=== PATIENT | male | born 1960 | race Caucasian/White ===

== ENCOUNTER → 2018-07-15 | Outpatient (CLI) | payer OTHER ==
--- NOTE | 2018-07-15 13:21 | XR ---
EXAMINATION TYPE: XR Hip Complete RT DATE OF EXAM: 07/15/2018 COMPARISON: NONE HISTORY: Right hip pain TECHNIQUE: 2 views submitted FINDINGS: There is no evidence of erosive change or acute fracture. Severe hypertrophic change of the acetabulu m with arthropathy of the hip joint. No erosive changes. IMPRESSION: 1. Arthropathy with deformity of the lateral margin the acetabulum likely result in femoral acetabula r impingement. Correlate with MRI as clinically warranted.
== END ==
LOC: RADXRMAIN 12:18
PROVIDERS: ATTEND Internal Medicine Infectious Disease
DX: M12.851 Other specific arthropathies, not elsewhere classified, right hip (principal); M21.951 Unspecified acquired deformity of right thigh
CPT/HCPCS: 73502

== ENCOUNTER → 2019-12-12 | Outpatient (CLI) | payer OTHER ==
[2019-12-12 10:39] LABS: Basophils % (A) 0 %; Eosinophils # (A) 0.6 k/uL (0-0.7); Eosinophils % (A) 6 %; HCT 40.1 % (39.0-53.0); HGB 12.9 gm/dL (13.0-17.5); Hypochromasia Slight; Lymphocytes # (A) 1.7 k/uL (1.0-4.8); Lymphocytes % (A) 19 %; MCH 27.8 pg (25.0-35.0); MCHC 32.1 g/dL (31.0-37.0); MCV 86.4 fL (80.0-100.0); Mean Platelet Volume 7.5; Monocytes # (A) 0.4 k/uL (0-1.0); Monocytes % (A) 4 %; Neutrophils # (A) 6.4 k/uL (1.3-7.7); Neutrophils % (A) 70 %; Platelet Count 239 k/uL (150-450); RBC 4.64 m/uL (4.30-5.90); RDW 13.8 % (11.5-15.5); WBC 9.1 k/uL (3.8-10.6)
[2019-12-12 11:06] LABS: Albumin 3.9 g/dL (3.5-5.0); Calcium 8.9 mg/dL (8.4-10.2); Potassium 4.9 mmol/L (3.5-5.1); Total Bilirubin 0.2 mg/dL (0.2-1.3); Total Protein 6.7 g/dL (6.3-8.2)
[2019-12-12 16:58] LABS: Hemoglobin A1C 10.9 % (4.0-6.0)
--- NOTE | 2019-12-20 12:32 | P.ARTDOP ---
Arterial Doppler LOWER EXTREMITY ARTERIAL DOPPLER: DATE OF SERVICE: 12/12/2019 Only right leg is done. Patient status post amputation of right leg. Note that patient is paralyzed. Reason for study: Right ankle ulceration with diabetes. Doppler waveforms: Multiphasic throughout on the right. Pulse volume recording: []. Pressure gradients: None. Ankle-brachial indices: Greater than 1 on the right. Toe brachial indices: 0.81 on the right, [] on the left Impression: Normal study on the right.
== END | disposition home or self-care (01) ==
LOC: RADUSWWP 09:43
PROVIDERS: ATTEND Thoracic Surgery (Cardiothoracic Vascular Surgery)
DX: I70.233 Atherosclerosis of native arteries of right leg with ulceration of ankle (principal); L97.312 Non-pressure chronic ulcer of right ankle with fat layer exposed; F17.210 Nicotine dependence, cigarettes, uncomplicated; E08.622 Diabetes mellitus due to underlying condition with other skin ulcer
CPT/HCPCS: 36415; 80053; 83036; 84134; 85025; 93922

== ENCOUNTER → 2019-12-17 | Outpatient (CLI) | payer OTHER | END | disposition home or self-care (01) | LOC: LABWHC1 10:40 | PROVIDERS: ATTEND Surgery | DX: U07.1 COVID-19 (principal) | CPT/HCPCS: 87635 ==

== ENCOUNTER → 2019-12-19 | Day surgery (SDC) | payer OTHER ==
[2019-12-18 09:54] VITALS: BMI 36.5
[~2019-12-19] MED LIST: ALPRAZolam 0.25 MG TAB PO PRN; ASPIRIN 325 MG TAB PO STA; HEPARIN SODIUM 1,000 UN/ML (10ML VL) IV ONE; INSULIN ASPART (NovoLOG) 100 UNIT/ML VIAL SQ ONE; IOPAMIDOL-370 100ML BTL INJ ONE; LIDOCAINE 1% INJ 10MG/ML (20 ML MDV) SQ ONE; MIDAZOLAM 2 MG/2 ML VIAL IV ONE; SODIUM CHLORIDE 0.9% 1,000 ML in EMPTY BAG 1 BAG IV ONE; ZOLPIDEM 5 MG TAB PO PRN
[2019-12-19 07:22] LABS: Glucose,Whole Blood 232 mg/dL (75-99)
[2019-12-19 07:25] VITALS: TEMP 97.4
[2019-12-19] MEDS: fentaNYL (PF) 50 MCG/ML 2 ML AMP IV ONE ×2 (07:50→08:18)
--- NOTE | 2019-12-19 07:50 | P.GSHP ---
History of Present Illness H&P Date: 12/19/19 Chief Complaint: right chronic foot wound 58-year-old gentleman who originally presented to the office secondary to chronic right lower extremity wounds that are nonhealing. He has been seen by the wound care center for several weeks without any improvement of his lower extremity wounds. He underwent arterial Doppler which did demonstrate ABIs around 0.8-0.9 but are likely falsely elevated due to his calcific arterial disease. His waveforms did demonstrate diminished upstroke at the popliteal and tibial regions therefore he presents to the endovascular suite for aortogram with runoff and possible intervention of his popliteal and tibial vessels. I did discuss with him the possibility of amputation needed if we are not able to improve blood flow. - Review of Systems All systems: negative (What is mentioned in HPI past medical history) Past Medical History Past Medical History: Diabetes Mellitus, Hyperlipidemia, Hypertension, Musculoskeletal Disorder, Renal Disease Additional Past Medical History / Comment(s): CHRONIC KIDNEY DISEASE, BPH, BACK PAIN, UNHEALING WOUND RIGHT ANKLE., WEAKNESS RIGHT LEG SINCE BACK SURGERY, LEFT LEG AKA.,- USES WHEELCHAIR AND SLIDE BOARD. History of Any Multi-Drug Resistant Organisms: MRSA Date of last positivie culture/infection: 2018 MDRO Source:: LEFT LEG Past Surgical History: Back Surgery Additional Past Surgical History / Comment(s): BACK SURGERY- LAMINECTOMY? AND CERVICAL FUSION (2003), LEFT LEG AKA (2017) Past Anesthesia/Blood Transfusion Reactions: No Reported Reaction, Motion Sickness Past Psychological History: Depression Smoking Status: Current every day smoker Past Alcohol Use History: None Reported Additional Past Alcohol Use History / Comment(s): SMOKES 1 PPD, STARTED SMOKING AGE 16 Past Drug Use History: None Reported - Past Family History Father Family Medical History: Cancer Additional Family Medical History / Comment(s): CROHNS Mother Family Medical History: Cancer Additional Family Medical History / Comment(s): BRAIN ANEURYSM X3, Sister(s) Family Medical History: Cancer Additional Family Medical History / Comment(s): SISTERS X2- BREAST CANCER Medications and Allergies Home Medications Medication Instructions Recorded Confirmed Type Diazepam [Valium] 5 mg PO BID 06/15/16 12/19/19 History Escitalopram [Lexapro] 20 mg PO DAILY 06/15/16 12/19/19 History Ibuprofen [Motrin] 600 mg PO BID 06/15/16 12/19/19 History Insulin Aspart Protam & Aspart 40 unit SQ BID 06/15/16 12/19/19 History [NovoLOG MIX 70-30 Flexpen] buPROPion [Wellbutrin] 100 mg PO DAILY 06/15/16 12/19/19 History Baclofen [Lioresal] 10 mg PO TID 12/18/19 12/19/19 History Folic Acid 1 mg PO DAILY 12/18/19 12/19/19 History HYDROcodone/APAP 10-325MG [[place] 1 tab PO QID PRN 12/18/19 12/19/19 History 10-325] Lisinopril 20 mg PO DAILY 12/18/19 12/19/19 History Metoprolol Succinate [Toprol XL] 25 mg PO DAILY 12/18/19 12/19/19 History Tamsulosin HCl [Flomax] 0.4 mg PO DAILY 12/18/19 12/19/19 History Vitamin E Acetate [Vitamin E] 180 unit PO DAILY 12/18/19 12/19/19 History Omeprazole 20 mg PO DAILY 12/19/19 12/19/19 History Allergies Allergy/AdvReac Type Severity Reaction Status Date / Time codeine AdvReac sleepy Verified 12/18/19 09:09 milk AdvReac Diarrhea Verified 12/18/19 09:09 morphine AdvReac Rash/Hives Verified 12/18/19 09:09 olmesartan [From Benicar] AdvReac blacks out Verified 12/18/19 09:09 Surgical - Exam Vital Signs Temp Pulse Resp BP Pulse Ox 97.4 F L 73 18 95/51 89 L 12/19/19 07:23 12/19/19 07:23 12/19/19 07:23 12/19/19 07:23 12/19/19 07:23 Nonpalpable DP, PT or popliteal pulses. Diminished femoral pulse due to patient's size. There is large wounds on the lateral aspect of his right lower leg and ankle. Multiple areas of ulcers then wounds noted throughout the lower leg. Capillary refill is slowed. - General Obese, in a wheelchair - Eyes PERRL - ENT normal pinna - Neck no masses - Respiratory normal expansion - Cardiovascular Rhythm: regular - Abdomen Soft, nontender, obese - Psychiatric oriented to time, oriented to person, oriented to place, speech is normal Results - Labs Abnormal Lab Results - Last 24 Hours (Table) 12/19/19 Range/Units 07:18 POC Glucose (mg/dL) 232 H (75-99) mg/dL Assessment and Plan Assessment: #1 critical limb ischemia of the right lower extremity [place] classification 6 #2 peripheral vascular disease of the right lower extremity with history of left AKA #3 diabetes #4 chronic right lower extremity wound #5 morbid obesity Plan: We'll perform an aortogram with right lower extremity runoff and possible interv ention.
--- NOTE | 2019-12-19 09:02 | P.OP ---
Description of Procedure: Preoperative diagnosis: Right lower extremity critical limb ischemia [place] classification 6, right lateral lower extremity arterial/venous ulcer Postop diagnosis: Same, right external iliac artery stenosis 80% and atherosclerotic disease with multiple areas of stenosis in the SFA, three-vessel runoff Procedure: 1. Aortogram with right lower extremity selective angiogram with catheter placement at the second order via left common femoral artery access under ultrasound guidance 2. Percutaneous transluminal balloon angioplasty of the right external iliac artery with a 7 x 20 mm [place] balloon 3. Intravascular pressure monitoring across the external iliac artery and common iliac artery Surgeon: Fran Anesthesia: Moderate sedation times 45 minutes Estimated blood loss: 5 mL Complications: None Condition: Stable Indication for procedure: 58-year-old gentleman with history of right lower extremity wounds with critical limb ischemia [place] classification 6 and ABIs demonstrating some decreased waveforms presents to the office for aortogram with right lower extremity runoff. Upon evaluation from preop he had no npalpable popliteal, DP or PT pulses as well as diminished femoral pulse on the right. He does have a left AKA. Findings: Aorta: Patent with mild atherosclerotic disease without any significant s tenosis, bilateral renal arteries demonstrate patent takeoff without any significant stenosis Iliacs: Left common iliac artery is patent without any significant stenosis, internal and external iliac artery is patent with some mild atherosclerotic disease. Right common iliac artery is patent without any significant stenosis. Internal iliac artery is patent without any significant calcification or stenosis. The external iliac artery does have an area of disease, calcification and possible stenosis approximately 80%. After crossing with a catheter and taking pressure monitoring differences were noted to be 125 down to 77 consistent with significant stenosis. Femorals: Bilateral femoral arteries were patent without any significant stenosis. The right profundus was widely patent without any significant disease. The superficial femoral artery on the right demonstrated multiple areas of atherosclerotic disease with some stenosis throughout the entirety of the vessel but flow was brisk throughout. Popliteal: Patent with mild atherosclerotic disease without any significant stenosis on the right. Tibials: Right lower extremity three-vessel runoff with 2 vessels to the foot. No significant stenosis or after stenotic disease. Operative narrative: After written informed consent was obtained the patient all risks benefits competitions were described the patient is brought to the [employer] [employer] and laid in a supine position. The area of the left groin was prepped and draped in the usual sterile fashion. Local anesthesia with moderate sedation was performed with continuous pulse ox monitoring and EKG monitoring. Utilizing ultrasound the left common femoral artery was visualized and shown to be patent without any significant plaque. Utilizing a multipurpose needle under ul trasound guidance the artery was accessed. Guidewire was placed followed by 5- [place] sheath. 035 Glidewire was then placed into the aorta followed by RBI catheter. Angiogram was then obtained of the aorta. Catheter was then placed up and over within the right common iliac artery and selective lower extremity angiograms were obtained. Catheter was then taken across the external iliac lesion and pressures were obtained demonstrating a systolic pressure of 77 mmHg distal to the lesion and 125 mmHg proximal to the lesion consistent with a proximally 50 mmHg difference. Glidewire was then placed across the lesion and balloon angioplasty with a 7 x 20 mm [place] balloon was performed. Pressures were once again obtained now demonstrating 125 mmHg proximal and a proximally 110-115 mmHg distal to the external iliac artery. There was no flow dissection or injury and therefore no stent was placed at this time. Once completed all guidewires, catheters and sheaths were removed and pressure was placed for hemostasis. Patient tolerated procedure well was sent to PACU for recovery. Disposition patient had a palpable right femoral pulse at the conclusion of the procedure. This should improve the blood flow and possibly heal his venous/arterial wounds. If he still has some inability to heal we will bring him back for atherectomy and stenting of his SFA. Plan - Discharge Summary Discharge Rx Participant: Yes New Discharge Prescriptions: No Action buPROPion [Wellbutrin] 100 mg PO DAILY Escitalopram [Lexapro] 20 mg PO DAILY Ibuprofen [Motrin] 600 mg PO BID Diazepam [Valium] 5 mg PO BID Insulin Aspart Protam & Aspart [NovoLOG MIX 70-30 Flexpen] 40 unit SQ BID Metoprolol Succinate [Toprol XL] 25 mg PO DAILY Lisinopril 20 mg PO DAILY Folic Acid 1 mg PO DAILY Baclofen [Lioresal] 10 mg PO TID Vitamin E Acetate [Vitamin E] 180 unit PO DAILY Tamsulosin HCl [Flomax] 0.4 mg PO DAILY HYDROcodone/APAP 10-325MG [[place] 10-325] 1 tab PO QID PRN PRN Reason: Pain Omeprazole 20 mg PO DAILY Discharge Medication List Diazepam [Valium] 5 mg PO BID 06/15/16 [History] Escitalopram [Lexapro] 20 mg PO DAILY 06/15/16 [History] Ibuprofen [Motrin] 600 mg PO BID 06/15/16 [History] Insulin Aspart Protam & Aspart [NovoLOG MIX 70-30 Flexpen] 40 unit SQ BID 06/15/16 [History] buPROPion [Wellbutrin] 100 mg PO DAILY 06/15/16 [History] Baclofen [Lioresal] 10 mg PO TID 12/18/19 [History] Folic Acid 1 mg PO DAILY 12/18/19 [History] HYDROcodone/APAP 10-325MG [[place] 10-325] 1 tab PO QID PRN 12/18/19 [History] Lisinopril 20 mg PO DAILY 12/18/19 [History] Metoprolol Succinate [Toprol XL] 25 mg PO DAILY 12/18/19 [History] Tamsulosin HCl [Flomax] 0.4 mg PO DAILY 12/18/19 [History] Vitamin E Acetate [Vitamin E] 180 unit PO DAILY 12/18/19 [History] Omeprazole 20 mg PO DAILY 12/19/19 [History]
--- NOTE | 2019-12-19 10:08 | IR ---
Fluoroscopy HISTORY: Critical limb ischemia 5.7 minutes fluoroscopy time supplied to the referring clinician. 223 intraoperative C-arm images do cument the procedure. See dictated report from vascular surgery.
[2019-12-19 10:13] VITALS: RESP 16
[2019-12-19 11:51] VITALS: BP 100/56; PULSE 78
== END | disposition home or self-care (01) ==
LOC: CATHCVL 06:42
PROVIDERS: ATTEND Surgery
DX: I70.201 Unspecified atherosclerosis of native arteries of extremities, right leg (principal); E11.51 Type 2 diabetes mellitus with diabetic peripheral angiopathy without gangrene; I77.1 Stricture of artery; I99.8 Other disorder of circulatory system; E11.622 Type 2 diabetes mellitus with other skin ulcer; L97.919 Non-pressure chronic ulcer of unspecified part of right lower leg with unspecified severity; L97.319 Non-pressure chronic ulcer of right ankle with unspecified severity; E66.01 Morbid (severe) obesity due to excess calories; E78.5 Hyperlipidemia, unspecified; I12.9 Hypertensive chronic kidney disease with stage 1 through stage 4 chronic kidney disease, or unspecified chronic kidney disease; E11.22 Type 2 diabetes mellitus with diabetic chronic kidney disease; N18.9 Chronic kidney disease, unspecified; N40.0 Benign prostatic hyperplasia without lower urinary tract symptoms; F32.9 Major depressive disorder, single episode, unspecified; F17.210 Nicotine dependence, cigarettes, uncomplicated; Z68.36 Body mass index [BMI] 36.0-36.9, adult; Z89.612 Acquired absence of left leg above knee; Z86.14 Personal history of Methicillin resistant Staphylococcus aureus infection; Z98.890 Other specified postprocedural states; Z98.1 Arthrodesis status; Z87.898 Personal history of other specified conditions; Z79.899 Other long term (current) drug therapy; Z79.1 Long term (current) use of non-steroidal anti-inflammatories (NSAID); Z79.4 Long term (current) use of insulin; Z88.5 Allergy status to narcotic agent; Z91.011 Allergy to milk products; Z88.8 Allergy status to other drugs, medicaments and biological substances; Z80.9 Family history of malignant neoplasm, unspecified; Z83.79 Family history of other diseases of the digestive system; Z82.49 Family history of ischemic heart disease and other diseases of the circulatory system; Z80.3 Family history of malignant neoplasm of breast
CPT/HCPCS: 36246; 37220; 75625; 75710; C1769 ×3; C1894; C1725; J2250; J2001; J3010; J1644; Q9967; 36200

== ENCOUNTER → 2020-01-05 | Outpatient (CLI) | payer OTHER | END | disposition home or self-care (01) | LOC: LABWHC1 10:10 | PROVIDERS: ATTEND Surgery | DX: Z11.59 Encounter for screening for other viral diseases (principal) | CPT/HCPCS: 87635 ==

== ENCOUNTER → 2020-01-09 | Day surgery (SDC) | payer OTHER ==
[2020-01-05 10:23] VITALS: BMI 36.5
[~2020-01-09] MED LIST changes: -ALPRAZolam 0.25 MG TAB PO PRN; -ASPIRIN 325 MG TAB PO STA; +CLINDAMYCIN 900 MG in DEXTROSE 5% IN WATER 50 ML IVPB ONE; +DEXAMETHASONE SOD PHOSPHATE 10 MG/ML 1 ML VIAL IV ONE; -HEPARIN SODIUM 1,000 UN/ML (10ML VL) IV ONE; +HYDROmorphone 0.5 MG/0.5 ML SYRINGE IVP PRN; -INSULIN ASPART (NovoLOG) 100 UNIT/ML VIAL SQ ONE; -IOPAMIDOL-370 100ML BTL INJ ONE; +KETAMINE 10 MG/ML 20 ML VIAL ONE; +LACTATED RINGERS 1,000 ML IV SCH; +LIDOCAINE 1% (10MG/ML) FOR IV START INTRADERMA PRN; -LIDOCAINE 1% INJ 10MG/ML (20 ML MDV) SQ ONE; -MIDAZOLAM 2 MG/2 ML VIAL IV ONE; +MIDAZOLAM 2 MG/2 ML VIAL IV PRN; +MIDAZOLAM 2 MG/2 ML VIAL ONE; +ONDANSETRON 4 MG/2 ML VIAL IVP ONE; +PROPOFOL 10 MG/ML 20 ML VIAL IV ONE; -SODIUM CHLORIDE 0.9% 1,000 ML in EMPTY BAG 1 BAG IV ONE; -ZOLPIDEM 5 MG TAB PO PRN; +diphenhydrAMINE 50 MG/ML 1 ML VIAL ONE; +fentaNYL (PF) 50 MCG/ML 2 ML AMP IV PRN; +fentaNYL (PF) 50 MCG/ML 2 ML AMP ONE
[2020-01-09 07:08] LABS: Glucose,Whole Blood 223 mg/dL (75-99)
[2020-01-09 07:11] VITALS: TEMP 97.3
[2020-01-09 08:11] VITALS: RESP 17
[2020-01-09 08:17] VITALS: BP 108/65; PULSE 81
--- NOTE | 2020-01-09 08:18 | P.OP ---
Date of Procedure: 01/09/20 Preoperative Diagnosis: Nonhealing right lateral ankle wound 4.5 x 3.5 x 2cm Postoperative Diagnosis: Same Procedure(s) Performed: Excisional debridement of the right lateral ankle wound with placement of skin substitute. Implants: Amniofill and Epifix skin substitute [place] [facility] [place]: Miah Peters Estimated Blood Loss (ml): 5 Pathology: none sent Condition: stable Disposition: PACU Indications for Procedure: 59-year-old gentleman with history of right lateral ankle wound and left above- knee amputation who presented originally to the office secondary to vascular issues and poor wound healing. He underwent aortogram with right iliac balloon angioplasty which improved his blood flow to his wound. He had been having issues with healing for the last several weeks and when discussion with Dr. Roa it was determined to perform a formal debridement and placement of skin substitute to assess the wound to heal. He presents today for such procedure. Operative Findings: Good bleeding tissues without any signs of infection or drainage. There is exposed tendon. Description of Procedure: After written and informed consent was obtained the patient all risks benefits and competitions were described the patient is brought to the operative suite and laid in a supine position. The area of the right lower leg was prepped and draped in usual sterile fashion after appropriate anesthetic was performed per the anesthesiologist. Timeout was performed in normal fashion antibiotics were administered prior to incision. Utilizing a curet right lateral ankle wound was debrided down to bleeding subcutaneous tissues as well as bleeding tissues overlying the tendon which is exposed. Once tenderness tissue was removed and good bleeding edges were noted the area was irrigated with saline. The wound measured 4.5 x 3.5 cm x 2 cm in depth. Amniofill was placed within the wound bed and an 4x4cm piece of Epifix was placed overlying the wound. The area was then irrigated with saline and surrounding tissues were cleansed and dried. An Adaptic was then placed over the wound and secured with Steri-Strips. The wound was then dressed with 4 x 4 and OpSite. The patient all procedure well was sent to PACU for recovery. Plan - Discharge Summary Discharge Rx Participant: No New Discharge Prescriptions: No Action buPROPion [Wellbutrin] 100 mg PO DAILY Escitalopram [Lexapro] 20 mg PO DAILY Ibuprofen [Motrin] 600 mg PO BID Diazepam [Valium] 5 mg PO BID Metoprolol Succinate [Toprol XL] 25 mg PO DAILY Lisinopril 20 mg PO DAILY Folic Acid 1 mg PO DAILY Baclofen [Lioresal] 10 mg PO TID Vitamin E Acetate [Vitamin E] 180 unit PO DAILY Tamsulosin HCl [Flomax] 0.4 mg PO DAILY HYDROcodone/APAP 10-325MG [[place] 10-325] 1 tab PO QID PRN PRN Reason: Pain Omeprazole 20 mg PO DAILY Insulin NPH Hum/Reg Insulin Hm [NovoLIN 70-30 100 UNIT/ML VIAL] 40 unit SQ BID Sulfamethox-Tmp 800-160Mg [Bactrim DS 800-160 mg] 1 tab PO Q12HR Discharge Medication List Diazepam [Valium] 5 mg PO BID 06/15/16 [History] Escitalopram [Lexapro] 20 mg PO DAILY 06/15/16 [History] Ibuprofen [Motrin] 600 mg PO BID 06/15/16 [History] buPROPion [Wellbutrin] 100 mg PO DAILY 06/15/16 [History] Baclofen [Lioresal] 10 mg PO TID 12/18/19 [History] Folic Acid 1 mg PO DAILY 12/18/19 [History] HYDROcodone/APAP 10-325MG [[place] 10-325] 1 tab PO QID PRN 12/18/19 [History] Lisinopril 20 mg PO DAILY 12/18/19 [History] Metoprolol Succinate [Toprol XL] 25 mg PO DAILY 12/18/19 [History] Tamsulosin HCl [Flomax] 0.4 mg PO DAILY 12/18/19 [History] Vitamin E Acetate [Vitamin E] 180 unit PO DAILY 12/18/19 [History] Omeprazole 20 mg PO DAILY 12/19/19 [History] Insulin NPH Hum/Reg Insulin Hm [NovoLIN 70-30 100 UNIT/ML VIAL] 40 unit SQ BID 01/05/20 [History] Sulfamethox-Tmp 800-160Mg [Bactrim DS 800-160 mg] 1 tab PO Q12HR 01/05/20 [History] Follow up Appointment(s)/Referral(s): Miah Peters DO [STAFF PHYSICIAN] - 1 Week Activity/Diet/Wound Care/Special Instructions: Dressing is to be left in place until seen in the office in one week. Do not allow dressings to get wet.
[2020-01-09 09:01] LABS: Glucose,Whole Blood 223 mg/dL (75-99)
== END ==
LOC: OR 06:11
PROVIDERS: ATTEND Surgery
DX: E11.622 Type 2 diabetes mellitus with other skin ulcer (principal); L97.319 Non-pressure chronic ulcer of right ankle with unspecified severity; I10 Essential (primary) hypertension; I73.9 Peripheral vascular disease, unspecified; F17.210 Nicotine dependence, cigarettes, uncomplicated; N40.0 Benign prostatic hyperplasia without lower urinary tract symptoms; K21.9 Gastro-esophageal reflux disease without esophagitis; Z03.818 Encounter for observation for suspected exposure to other biological agents ruled out; Z79.4 Long term (current) use of insulin; Z79.899 Other long term (current) drug therapy; Z88.1 Allergy status to other antibiotic agents; Z88.5 Allergy status to narcotic agent; Z89.612 Acquired absence of left leg above knee; Z98.1 Arthrodesis status; Z80.9 Family history of malignant neoplasm, unspecified
CPT/HCPCS: 15271; J2250; J1200; J2405; J3010; J2704

== ENCOUNTER 2020-01-16 15:13 | Inpatient (IN) | payer OTHER ==
[2020-01-16] MEDS ORDERED: SODIUM CHLORIDE 0.9% 1,000 ML IV ONE (15:44)
[2020-01-16] MEDS ORDERED: PIPERACILLIN-TAZOBACTAM 3.375 GM in SODIUM CHLORIDE 0.9% 100 ML IVPB STA (15:45)
[2020-01-16] MEDS ORDERED: VANCOMYCIN IV PER PHARMACY 1 EACH MISC MISCELLANE PRN (15:45)
--- NOTE | 2020-01-16 16:01 | ED ---
General Adult HPI - General Chief complaint: Recheck/Abnormal Lab/Rx Stated complaint: R Leg Wound Time Seen by Provider: 01/16/20 15:23 Source: patient, RN notes reviewed, old records reviewed Mode of arrival: ambulatory Limitations: no limitations - History of Present Illness Initial comments: Patient is a 51-year-old male who presents emergency department today for evaluation for right ankle wound. He was sent by his vascular surgeon Dr. Peters. Patient underwent debridement last week And has been on Bactrim DS for the past 2 weeks. Apparently of patient's visit with Dr. Peters today and the wound was rechecked and has a significant amount of purulent drainage. Patient denies any recent fevers. He states he was sent in for further evaluation and admission for IV antibiotics. Patient states that he did also have balloon angioplasty done a few weeks prior to this to assist with blood flow to the lower extremity. He has a left [id number] amputee. Patient denies any recent fever, chills, shortness of breath, chest pain, back p ain, abdominal pain, nausea vomiting, numbness or tingling, dysuria or hematuria, constipation or diarrhea, headaches or visual changes, or any other current symptoms. - Related Data Home Medications Medication Instructions Recorded Confirmed Diazepam [Valium] 5 mg PO BID 06/15/16 01/05/20 Escitalopram [Lexapro] 20 mg PO DAILY 06/15/16 01/05/20 Ibuprofen [Motrin] 600 mg PO BID 06/15/16 01/05/20 buPROPion [Wellbutrin] 100 mg PO DAILY 06/15/16 01/05/20 Baclofen [Lioresal] 10 mg PO TID 12/18/19 01/05/20 Folic Acid 1 mg PO DAILY 12/18/19 01/05/20 HYDROcodone/APAP 10-325MG [[place] 1 tab PO QID PRN 12/18/19 01/05/20 10-325] Lisinopril 20 mg PO DAILY 12/18/19 01/05/20 Metoprolol Succinate [Toprol XL] 25 mg PO DAILY 12/18/19 01/05/20 Tamsulosin HCl [Flomax] 0.4 mg PO DAILY 12/18/19 01/05/20 Vitamin E Acetate [Vitamin E] 180 unit PO DAILY 12/18/19 01/05/20 Omeprazole 20 mg PO DAILY 12/19/19 01/05/20 Insulin NPH Hum/Reg Insulin Hm 40 unit SQ BID 01/05/20 01/05/20 [NovoLIN 70-30 100 UNIT/ML VIAL] Sulfamethox-Tmp 800-160Mg [Bactrim 1 tab PO Q12HR 01/05/20 01/05/20 DS 800-160 mg] Allergies Allergy/AdvReac Type Severity Reaction Status Date / Time cephalexin [From Keflex] Allergy Unknown Verified 01/16/20 15:21 levofloxacin [From Levaquin] Allergy Nausea & Verified 01/16/20 15:21 Vomiting,headache codeine AdvReac sleepy Verified 01/16/20 15:21 milk AdvReac Diarrhea Verified 01/16/20 15:21 morphine AdvReac Rash/Hives Verified 01/16/20 15:21 olmesartan [From Benicar] AdvReac blacks out Verified 01/16/20 15:21 Review of Systems ROS Statement: Those systems with pertinent positive or pertinent negative responses have been documented in the HPI. ROS Other: All systems not noted in ROS Statement are negative. Past Medical History Past Medical History: Diabetes Mellitus, Hyperlipidemia, Hypertension, Musculoskeletal Disorder, Renal Disease Additional Past Medical History / Comment(s): paraplegia 2002 History of Any Multi-Drug Resistant Organisms: MRSA Date of last positivie culture/infection: 2016 MDRO Source:: L Ankle Past Surgical History: Back Surgery Additional Past Surgical History / Comment(s): Colonoscopy, left leg above the knee amputation Past Anesthesia/Blood Transfusion Reactions: No Reported Reaction Smoking Status: Current some day smoker Past Alcohol Use History: None Reported Past Drug Use History: None Reported - Past Family History Father Family Medical History: Cancer Mother Family Medical History: Cancer, Deep Vein Thrombosis (DVT) Sister(s) Family Medical History: Cancer General Exam - General Exam Comments Initial Comments: 59 year old male, no distress. Limitations: no limitations General appearance: alert, in no apparent distress Head exam: Present: atraumatic, normocephalic, normal inspection Eye exam: Present: normal appearance, PERRL, EOMI. Absent: scleral icterus, c onjunctival injection, periorbital swelling ENT exam: Present: normal exam, mucous membranes moist Neck exam: Present: normal inspection. Absent: tenderness, meningismus, lymphadenopathy Respiratory exam: Present: normal lung sounds bilaterally. Absent: respiratory distress, wheezes, rales, rhonchi, stridor Cardiovascular Exam: Present: regular rate GI/Abdominal exam: Present: soft, normal bowel sounds. Absent: distended, tenderness, guarding, rebound, rigid Extremities exam: Present: normal inspection, full ROM, normal capillary refill. Absent: tenderness, pedal edema, joint swelling, calf tenderness Right Upper Leg exam: Present: normal inspection, full ROM Knee exam: Present: normal inspection, full ROM Lower Leg exam: Present: normal inspection, full ROM Ankle exam: Present: full ROM, swelling. Absent: normal inspection Foot/Toe exam: Present: full ROM. Absent: normal inspection (Patient has a 4 cm x 3 cm open wound from D Prete debridement with purulent drainage over the lateral malleolus of the right ankle. There is some surrounding erythema consistent with where bandages were.) Neurovascular tendon exam: Absent: no vascular compromise (Patient has faint Doppler dorsalis pedis and posterior tibial pulse heard on Doppler ultrasound.) Gait: observed and normal Back exam: Present: normal inspection Neurological exam: Present: alert, oriented X3, CN II-XII intact Psychiatric exam: Present: normal affect, normal mood Skin exam: Present: warm, dry, intact, normal color. Absent: rash Course Vital Signs 01/16/20 15:15 Temperature 98.5 F Pulse Rate 74 Respiratory 18 Rate Blood Pressure 109/69 O2 Sat by Pulse 98 Oximetry Medical Decision Making - Medical Decision Making Patient's a 59-year-old male presents emergency department today for nonweight healing right ankle wound. Patient was sent by his vascular specialist Dr. Peters who did a debridement last week. Wound cultures obtained today and Patient was started on Zosyn and vancomycin. Patient has very limited sensation to the lower extremity. And dorsalis pedis and Doppler pulses were auscultated with Doppler and were faintly heard. Patient will be admitted this time in case was discussed with Dr. Leavitt by Dr. Aguilera. With consults to Dr. Peters - Lab Data Result diagrams: 01/16/20 16:30 01/16/20 16:30 Lab Results 01/16/20 01/16/20 01/16/20 Range/Units 16:30 16:30 16:30 WBC 9.5 (3.8-10.6) k/uL RBC 4.69 (4.30-5.90) m/uL Hgb 12.4 L (13.0-17.5) gm/dL Hct 38.3 L (39.0-53.0) % MCV 81.5 (80.0-100.0) fL MCH 26.5 (25.0-35.0) pg MCHC 32.5 (31.0-37.0) g/dL RDW 13.3 (11.5-15.5) % Plt Count 228 (150-450) k/uL Neutrophils % 62 % Lymphocytes % 27 % Monocytes % 4 % Eosinophils % 6 % Basophils % 1 % Neutrophils # 5.8 (1.3-7.7) k/uL Lymphocytes # 2.6 (1.0-4.8) k/uL Monocytes # 0.3 (0-1.0) k/uL Eosinophils # 0.6 (0-0.7) k/uL Basophils # 0.1 (0-0.2) k/uL PT 10.0 (9.0-12.0) sec INR 1.0 (<1.2) APTT 26.2 (22.0-30.0) sec Sodium 129 L (137-145) mmol/L Potassium 4.5 (3.5-5.1) mmol/L Chloride 95 L (98-107) mmol/L Carbon Dioxide 23 (22-30) mmol/L Anion Gap 11 mmol/L BUN 18 (9-20) mg/dL Creatinine 1.03 (0.66-1.25) mg/dL Est GFR (CKD-EPI)AfAm >90 (>60 ml/min/1.73 sqM) Est GFR (CKD-EPI)NonAf 80 (>60 ml/min/1.73 sqM) Glucose 246 H (74-99) mg/dL Plasma Lactic Acid Glenn (0.7-2.0) mmol/L Calcium 9.2 (8.4-10.2) mg/dL Total Bilirubin 0.2 (0.2-1.3) mg/dL AST 17 (17-59) U/L ALT 14 (4-49) U/L Alkaline Phosphatase 91 (38-126) U/L Total Protein 6.7 (6.3-8.2) g/dL Albumin 3.9 (3.5-5.0) g/dL 01/16/20 Range/Units 16:30 WBC (3.8-10.6) k/uL RBC (4.30-5.90) m/uL Hgb (13.0-17.5) gm/dL Hct (39.0-53.0) % MCV (80.0-100.0) fL MCH (25.0-35.0) pg MCHC (31.0-37.0) g/dL RDW (11.5-15.5) % Plt Count (150-450) k/uL Neutrophils % % Lymphocytes % % Monocytes % % Eosinophils % % Basophils % % Neutrophils # (1.3-7.7) k/uL Lymphocytes # (1.0-4.8) k/uL Monocytes # (0-1.0) k/uL Eosinophils # (0-0.7) k/uL Basophils # (0-0.2) k/uL PT (9.0-12.0) sec INR (<1.2) APTT (22.0-30.0) sec Sodium (137-145) mmol/L Potassium (3.5-5.1) mmol/L Chloride (98-107) mmol/L Carbon Dioxide (22-30) mmol/L Anion Gap mmol/L BUN (9-20) mg/dL Creatinine (0.66-1.25) mg/dL Est GFR (CKD-EPI)AfAm (>60 ml/min/1.73 sqM) Est GFR (CKD-EPI)NonAf (>60 ml/min/1.73 sqM) Glucose (74-99) mg/dL Plasma Lactic Acid Glenn 2.3 H* (0.7-2.0) mmol/L Calcium (8.4-10.2) mg/dL Total Bilirubin (0.2-1.3) mg/dL AST (17-59) U/L ALT (4-49) U/L Alkaline Phosphatase (38-126) U/L Total Protein (6.3-8.2) g/dL Albumin (3.5-5.0) g/dL - Radiology Data Radiology results: report reviewed 2.3 cm skin ulceration over the lateral malleolus with no radiographic sequela of osteomyelitis however nuclear medicine scan could be used to further evaluate presence of osteomyelitis. Extensive hindfoot arthropathy is seen. Disposition Clinical Impression: Diabetic ulcer of lower leg, Failure of outpatient treatment Disposition: ADMITTED IP TO THIS [facility] Condition: Stable Is patient prescribed a controlled substance at d/c from ED?: No Referrals: Kendell Mane MD [Primary Care Provider] - 1-2 days Time of Disposition: 17:20
[2020-01-16] MEDS ORDERED: VANCOMYCIN 2,500 MG in SODIUM CHLORIDE 0.9% 500 ML 500 ML IVPB ONE (16:30)
[2020-01-16 16:41] LABS: Basophils # (A) 0.1 k/uL (0-0.2); Basophils % (A) 1 %; Eosinophils # (A) 0.6 k/uL (0-0.7); Eosinophils % (A) 6 %; HCT 38.3 % (39.0-53.0); HGB 12.4 gm/dL (13.0-17.5); Lymphocytes # (A) 2.6 k/uL (1.0-4.8); Lymphocytes % (A) 27 %; MCH 26.5 pg (25.0-35.0); MCHC 32.5 g/dL (31.0-37.0); MCV 81.5 fL (80.0-100.0); Mean Platelet Volume 7.8; Monocytes # (A) 0.3 k/uL (0-1.0); Monocytes % (A) 4 %; Neutrophils # (A) 5.8 k/uL (1.3-7.7); Neutrophils % (A) 62 %; Platelet Count 228 k/uL (150-450); RBC 4.69 m/uL (4.30-5.90); RDW 13.3 % (11.5-15.5); WBC 9.5 k/uL (3.8-10.6)
[2020-01-16 16:49] LABS: ALT 14 U/L (4-49); AST 17 U/L (17-59); African American GFR (CKD) >90 (>60 ml/min/1.73 sqM); Albumin 3.9 g/dL (3.5-5.0); Alkaline Phosphatase 91 U/L (38-126); Anion Gap 11 mmol/L; Blood Urea Nitrogen 18 mg/dL (9-20); Calcium 9.2 mg/dL (8.4-10.2); Carbon Dioxide 23 mmol/L (22-30); Chloride 95 mmol/L (98-107); Glucose 246 mg/dL (74-99); Non-African American GFR(CKD) 80 (>60 ml/min/1.73 sqM); Potassium 4.5 mmol/L (3.5-5.1); Sodium 129 mmol/L (137-145); Total Bilirubin 0.2 mg/dL (0.2-1.3); Total Protein 6.7 g/dL (6.3-8.2)
[2020-01-16 16:53] LABS: Partial Thromboplastin Time 26.2 sec (22.0-30.0)
--- NOTE | 2020-01-16 17:06 | XR ---
EXAMINATION TYPE: XR ankle complete RT DATE OF EXAM: 01/16/2020 CLINICAL HISTORY: Nonhealing wound right ankle pain TECHNIQUE: Frontal, lateral and oblique images of the right ankle are obtained. COMPARISON: None. FINDINGS: There is a 2.3 cm skin ulcer overlying the distal fibula. There is diffuse osseous deminera lization and extensive arthropathy of the hindfoot although the talar dome appears intact. Old fractu re deformity of the medial malleolus. No periosteal reaction or erosion of the fibula. Moderate plant ar and Achilles heel spurs noted. IMPRESSION: 2.3 cm skin ulceration over the lateral malleolus with no current radiographic sequela of osteomyelitis however nuclear medicine bone scan could further evaluate for the presence of osteomye litis. Extensive hindfoot arthropathy is seen.
[2020-01-16] MEDS ORDERED: IBUPROFEN 400 MG TAB PO PRN (17:21)
[2020-01-16] MEDS ORDERED: Acetaminophen-Codeine 300-30mg TAB PO PRN (17:21)
[2020-01-16] MEDS ORDERED: NALOXONE 0.4 MG/ML 1 ML VIAL IV PRN (17:21)
[2020-01-16] MEDS ORDERED: ONDANSETRON 4 MG/2 ML VIAL IVP PRN (17:21)
[2020-01-16] MEDS ORDERED: oxyCODONE-APAP 5-325MG 1 EACH TAB PO PRN (17:21)
[2020-01-16] MEDS ORDERED: NICOTINE 21MG/24HR PATCH TRANSDERM STA (17:34)
[2020-01-16] MEDS: SODIUM CHLORIDE 0.9% 1,000 ML IV SCH (19:39)
[2020-01-16 20:56] LABS: Glucose,Whole Blood 328 mg/dL (75-99)
[2020-01-16] MEDS: INSULN ASP PRT/INSULIN ASPART 100 UNIT/ML 10 ML VIAL SQ SCH (20:56)
[2020-01-16] MEDS: IBUPROFEN 600 MG TAB PO SCH (20:57)
[2020-01-16] MEDS: DIAZEPAM 5 MG TAB PO SCH (20:57)
[2020-01-16] MEDS: BACLOFEN 10 MG TAB PO SCH (20:57)
[2020-01-16] MEDS: TAMSULOSIN 0.4 MG CAP.ER.24H PO SCH (20:57)
[2020-01-16] MEDS: HYDROcodone/APAP 10-325MG 1 EACH TAB PO SCH (20:57)
[2020-01-17] MEDS: SODIUM CHLORIDE 0.9% 1,000 ML IV SCH ×3 (03:51→22:57)
[2020-01-17] MEDS: VANCOMYCIN 2,500 MG in SODIUM CHLORIDE 0.9% 500 ML 500 ML IVPB SCH ×2 (05:43→17:38)
[2020-01-17 06:56] LABS: Glucose,Whole Blood 149 mg/dL (75-99)
[2020-01-17 07:40] LABS: Basophils # (A) 0.1 k/uL (0-0.2); Basophils % (A) 1 %; Eosinophils # (A) 0.6 k/uL (0-0.7); Eosinophils % (A) 9 %; HCT 38.7 % (39.0-53.0); HGB 12.1 gm/dL (13.0-17.5); Lymphocytes % (A) 30 %; MCH 25.9 pg (25.0-35.0); MCHC 31.3 g/dL (31.0-37.0); MCV 82.9 fL (80.0-100.0); Mean Platelet Volume 7.4; Monocytes # (A) 0.3 k/uL (0-1.0); Monocytes % (A) 4 %; Neutrophils # (A) 3.5 k/uL (1.3-7.7); Neutrophils % (A) 54 %; Platelet Count 213 k/uL (150-450); RBC 4.67 m/uL (4.30-5.90); RDW 13.4 % (11.5-15.5); WBC 6.5 k/uL (3.8-10.6)
[2020-01-17 07:56] LABS: ALT 13 U/L (4-49); AST 17 U/L (17-59); African American GFR (CKD) >90 (>60 ml/min/1.73 sqM); Albumin 3.5 g/dL (3.5-5.0); Alkaline Phosphatase 87 U/L (38-126); Anion Gap 8 mmol/L; Blood Urea Nitrogen 15 mg/dL (9-20); Calcium 8.8 mg/dL (8.4-10.2); Carbon Dioxide 24 mmol/L (22-30); Chloride 105 mmol/L (98-107); Glucose 146 mg/dL (74-99); Non-African American GFR(CKD) >90 (>60 ml/min/1.73 sqM); Potassium 4.6 mmol/L (3.5-5.1); Sodium 137 mmol/L (137-145); Total Bilirubin 0.1 mg/dL (0.2-1.3); Total Protein 6.2 g/dL (6.3-8.2)
[2020-01-17] MEDS: INSULN ASP PRT/INSULIN ASPART 100 UNIT/ML 10 ML VIAL SQ SCH (08:10)
[2020-01-17] MEDS: DIAZEPAM 5 MG TAB PO SCH ×2 (08:11→22:13)
[2020-01-17] MEDS: FOLIC ACID 1 MG TAB PO SCH (08:12)
[2020-01-17] MEDS: HYDROcodone/APAP 10-325MG 1 EACH TAB PO SCH ×4 (08:12→22:13)
[2020-01-17] MEDS: VITAMIN E (DL,TOCOPHERYL ACET) 400 UNIT CAP PO SCH (08:12)
[2020-01-17] MEDS: METOPROLOL SUCCINATE (ER) 25 MG TAB.ER.24H PO SCH (08:12)
[2020-01-17] MEDS: BACLOFEN 10 MG TAB PO SCH ×3 (08:13→22:11)
[2020-01-17] MEDS: IBUPROFEN 600 MG TAB PO SCH ×2 (08:13→22:12)
[2020-01-17] MEDS: LISINOPRIL 20 MG TAB PO SCH (08:21)
[2020-01-17] MEDS: ESCITALOPRAM 20 MG TAB PO SCH (08:21)
[2020-01-17] MEDS ORDERED: NON FORMULARY DRUG (Omeprazole [Omeprazole] 20 MG) PO SCH (09:00)
[2020-01-17] MEDS ORDERED: buPROPion SR 100 MG TABLET.ER PO SCH ×2 (09:00)
[2020-01-17] MEDS ORDERED: PANTOPRAZOLE 40 MG/10 ML VIAL IV SCH (09:00)
[2020-01-17 11:42] LABS: Glucose,Whole Blood 168 mg/dL (75-99)
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
--- NOTE | 2020-01-17 13:20 | P.GSCN ---
History of Present Illness Consult date: 01/17/20 Reason for Consult: Right apical wound, failure outpatient History of present illness: This is a 59-year-old gentleman who was sent in by Dr. Peters from the office yesterday for a right ankle wound that was found to have purulent drainage. The patient had undergone in early December a right lower extremity balloon angioplasty to help increase blood flow to the right lower extremity for nonhealing wounds. On January 08 the patient had a debridement of the open wound on the right lower extremity, was seeing Dr. Peters in the office for outpatient therapy, however yesterday while in the office the patient was noted to have purulent drainage and was sent in to the hospital for admission for further treatment and IV antibiotics. The patient has a past medical history that includes diabetes mellitus, hyperlipidemia, hypertension, musculoskeletal disorder, and chronic kidney disease. Patient has also has a history of a left [id number]-ema-vato amputation in 2018. X-ray was completed in the emergency room showing a 2.3 cm skin ulceration over the lateral malleolus with no radiographic sequela of osteomyelitis however nuclear medicine scan could be used for further evaluation presence of osteomyelitis. Extensive hindfoot arthropathy. Patient denies any fever or chills. He denies any shortness of breath, chest pain, or difficulty breathing. He admits to smoking one pack per day of cigarettes, and states his diabetes has not very well controlled. The patient also states that he had just gotten a wound VAC yesterday however has not used yet. Infectious diseases consult, IV antibiotics Zosyn and vancomycin started on patient. Review of Systems A of systems was completed, all pertinent positives and negatives as stated in the HPI. Past Medical History Past Medical History: Diabetes Mellitus, Hyperlipidemia, Hypertension, Musculoskeletal Disorder, Renal Disease Additional Past Medical History / Comment(s): paraplegia 2002 History of Any Multi-Drug Resistant Organisms: MRSA Year Discovered:: 2016 MDRO Source:: L Ankle Past Surgical History: Back Surgery Additional Past Surgical History / Comment(s): Colonoscopy, left leg above the knee amputation Past Anesthesia/Blood Transfusion Reactions: No Reported Reaction Past Psychological History: No Psychological Hx Reported Smoking Status: Current every day smoker Past Alcohol Use History: None Reported Past Drug Use History: None Reported - Past Family History Father Family Medical History: Cancer Mother Family Medical History: Cancer, Deep Vein Thrombosis (DVT) Sister(s) Family Medical History: Cancer Medications and Allergies Home Medications Medication Instructions Recorded Confirmed Type Diazepam [Valium] 5 mg PO BID 06/15/16 01/16/20 History Escitalopram [Lexapro] 20 mg PO DAILY 06/15/16 01/16/20 History Ibuprofen [Motrin] 600 mg PO BID 06/15/16 01/16/20 History Baclofen [Lioresal] 10 mg PO TID 12/18/19 01/16/20 History Folic Acid 1 mg PO DAILY 12/18/19 01/16/20 History HYDROcodone/APAP 10-325MG [[place] 1 tab PO QID 12/18/19 01/16/20 History 10-325] Lisinopril 20 mg PO DAILY 12/18/19 01/16/20 History Metoprolol Succinate [Toprol XL] 25 mg PO DAILY 12/18/19 01/16/20 History Tamsulosin HCl [Flomax] 0.4 mg PO HS 12/18/19 01/16/20 History Vitamin E Acetate [Vitamin E] 200 unit PO DAILY 12/18/19 01/16/20 History Omeprazole 20 mg PO DAILY 12/19/19 01/16/20 History Insulin NPH Hum/Reg Insulin Hm 40 unit SQ BID 01/05/20 01/16/20 History [NovoLIN 70-30 100 UNIT/ML VIAL] buPROPion SR [Wellbutrin Sr] 100 mg PO DAILY 01/16/20 01/16/20 History Allergies Allergy/AdvReac Type Severity Reaction Status Date / Time cephalexin [From Keflex] Allergy Unknown Verified 01/16/20 19:28 levofloxacin [From Levaquin] Allergy Nausea & Verified 01/16/20 19:28 Vomiting,headache codeine AdvReac sleepy Verified 01/16/20 19:28 milk AdvReac Diarrhea Verified 01/16/20 19:28 morphine AdvReac Rash/Hives Verified 01/16/20 19:28 olmesartan [From Benicar] AdvReac blacks out Verified 01/16/20 19:28 Surgical - Exam Vital Signs Temp Pulse Resp BP Pulse Ox 98.5 F 74 18 109/69 98 01/16/20 15:15 01/16/20 15:15 01/16/20 15:15 01/16/20 15:15 01/16/20 15:15 General appearance: The patient is alert, oriented, in no acute distress. HET: Head is normocephalic and atraumatic. Pupils are equal and reactive. Neck: Supple without lymphadenopathy. Heart: S1 S2. Regular rate and rhythm. Lungs: No crackles or wheezes are heard. Abdomen: Soft, nontender, nondistended with bowel sounds. Extremities: Lower extremity [id number] amputation. Right lower extremity lateral malleolus ulceration approximately 3cm x 4cm in size with purulent drainage. Right lower extremity warm to touch, palpable DP and PT pulses. Patient is able to freely move her right lower extremity foot handholds, sensation intact. Multiple small scabs on dorsal side of toes. Neurological: No focal deficits. Strength and sensation are grossly intact. Results - Labs 01/17/20 06:49 01/17/20 06:49 Abnormal Lab Results - Last 24 Hours (Table) 01/16/20 01/16/20 01/16/20 Range/Units 16:30 16:30 16:30 Hgb 12.4 L (13.0-17.5) gm/dL Hct 38.3 L (39.0-53.0) % Sodium 129 L (137-145) mmol/L Chloride 95 L (98-107) mmol/L Glucose 246 H (74-99) mg/dL POC Glucose (mg/dL) (75-99) mg/dL Plasma Lactic Acid Glenn 2.3 H* (0.7-2.0) mmol/L Total Bilirubin (0.2-1.3) mg/dL Total Protein (6.3-8.2) g/dL 01/16/20 01/17/20 01/17/20 Range/Units 20:55 06:49 06:49 Hgb 12.1 L (13.0-17.5) gm/dL Hct 38.7 L (39.0-53.0) % Sodium (137-145) mmol/L Chloride (98-107) mmol/L Glucose 146 H (74-99) mg/dL POC Glucose (mg/dL) 328 H (75-99) mg/dL Plasma Lactic Acid Glenn (0.7-2.0) mmol/L Total Bilirubin 0.1 L (0.2-1.3) mg/dL Total Protein 6.2 L (6.3-8.2) g/dL 01/17/20 Range/Units 06:54 Hgb (13.0-17.5) gm/dL Hct (39.0-53.0) % Sodium (137-145) mmol/L Chloride (98-107) mmol/L Glucose (74-99) mg/dL POC Glucose (mg/dL) 149 H (75-99) mg/dL Plasma Lactic Acid Glenn (0.7-2.0) mmol/L Total Bilirubin (0.2-1.3) mg/dL Total Protein (6.3-8.2) g/dL Microbiology - Last 24 Hours (Table) 01/16/20 16:30 Wound Culture - Preliminary Foot - Right Diabetes panel 01/16/20 01/17/20 Range/Units 16:30 06:49 Sodium 129 L 137 (137-145) mmol/L Potassium 4.5 4.6 (3.5-5.1) mmol/L Chloride 95 L 105 (98-107) mmol/L Carbon Dioxide 23 24 (22-30) mmol/L BUN 18 15 (9-20) mg/dL Creatinine 1.03 0.89 (0.66-1.25) mg/dL Glucose 246 H 146 H (74-99) mg/dL Calcium 9.2 8.8 (8.4-10.2) mg/dL AST 17 17 (17-59) U/L ALT 14 13 (4-49) U/L Alkaline Phosphatase 91 87 (38-126) U/L Total Protein 6.7 6.2 L (6.3-8.2) g/dL Albumin 3.9 3.5 (3.5-5.0) g/dL Calcium panel 01/16/20 01/17/20 Range/Units 16:30 06:49 Calcium 9.2 8.8 (8.4-10.2) mg/dL Albumin 3.9 3.5 (3.5-5.0) g/dL Pituitary panel 01/16/20 01/17/20 Range/Units 16:30 06:49 Sodium 129 L 137 (137-145) mmol/L Potassium 4.5 4.6 (3.5-5.1) mmol/L Chloride 95 L 105 (98-107) mmol/L Carbon Dioxide 23 24 (22-30) mmol/L BUN 18 15 (9-20) mg/dL Creatinine 1.03 0.89 (0.66-1.25) mg/dL Glucose 246 H 146 H (74-99) mg/dL Calcium 9.2 8.8 (8.4-10.2) mg/dL Adrenal panel 01/16/20 01/17/20 Range/Units 16:30 06:49 Sodium 129 L 137 (137-145) mmol/L Potassium 4.5 4.6 (3.5-5.1) mmol/L Chloride 95 L 105 (98-107) mmol/L Carbon Dioxide 23 24 (22-30) mmol/L BUN 18 15 (9-20) mg/dL Creatinine 1.03 0.89 (0.66-1.25) mg/dL Glucose 246 H 146 H (74-99) mg/dL Calcium 9.2 8.8 (8.4-10.2) mg/dL Total Bilirubin 0.2 0.1 L (0.2-1.3) mg/dL AST 17 17 (17-59) U/L ALT 14 13 (4-49) U/L Alkaline Phosphatase 91 87 (38-126) U/L Total Protein 6.7 6.2 L (6.3-8.2) g/dL Albumin 3.9 3.5 (3.5-5.0) g/dL Assessment and Plan Assessment: 1. Right lower extremity lateral malleolus nonhealing wound, failure for outpatient treatment 2. Peripheral vascular disease of the right lower extremity with history of a left AKA 3. Status post right lower extremity aortogram with balloon angioplasty 4. Diabetes 5. Morbid obesity 6. Tobacco abuse Plan: Consult infectious disease for recommendations and cultures on the right lower extremity wound. Patient is scheduled for right lateral malleolus wound debridement with wound VAC application for tomorrow with Dr. Mallory. Continue antibiotics per infectious disease. Nothing by mouth after midnight. Discuss with patient importance of smoking cessation and strict glycemic control for his diabetes. Thank you for this consultation allowing us to take part and plan of care during his hospital stay. The above dictated assessment and findings were discussed with Dr. Mallory. The i mpression and plan of care have been directed as dictated.
[2020-01-17 16:50] LABS: Glucose,Whole Blood 158 mg/dL (75-99)
[2020-01-17] MEDS: INSULIN ASPART (NovoLOG) 100 UNIT/ML VIAL SQ SCH ×2 (17:24→22:14)
[2020-01-17 20:13] LABS: Glucose,Whole Blood 131 mg/dL (75-99)
[2020-01-17] MEDS ORDERED: INSULN ASP PRT/INSULIN ASPART 100 UNIT/ML 10 ML VIAL SQ SCH (21:00)
[2020-01-17] MEDS: buPROPion SR 100 MG TABLET.ER PO SCH (22:11)
[2020-01-17] MEDS: TAMSULOSIN 0.4 MG CAP.ER.24H PO SCH (22:12)
[2020-01-17] MEDS: HEPARIN SODIUM,PORCINE 5,000 UNIT/ML 1 ML VIAL SQ SCH (22:14)
[2020-01-17] MEDS ORDERED: INSULIN NPH 300 UNIT/3 ML VIAL SQ ONE (22:30)
[2020-01-18] MEDS: VANCOMYCIN 2,500 MG in SODIUM CHLORIDE 0.9% 500 ML 500 ML IVPB SCH ×2 (05:33→17:39)
--- NOTE | 2020-01-18 06:43 | P.CONS ---
History of Present Illness - Reason for Consult Consult date: 01/17/20 right ankle wound infection Requesting physician: Carrie Leavitt - Chief Complaint purulent draiange from right leg wound x days - History of Present Illness Patient is a 59-year-old male with a past medical he significant for peripheral arterial disease in this patient who did have a left [id number]-[id number] amputation patient did have a recent right lower extremity balloon angioplasty for peripheral arterial disease to help heal his right lateral ankle wound but n ot specifically for how like he has this wound he said his for a very long time not specific about the date patient was recently diagnosed in the outpatient setting with a right lateral wound infection and has been treated with Bactrim DS for 2 weeks patient was seen in the outpatient setting by his surgeon but he was noticed to have significant purulent drainage subsequently patient has been advised to go to the hospital for IV robotic therapy patient denies having any fever or any chills he did have pain to the right lateral ankle wound area more of a dull aching 4 to 5-10 and no radiation on arrival to the ER the patient has been afebrile patient noticed to have a normal white count creatinine was normal as well as potassium patient did have local wound cultures obtained which are currently pending blood culture has been so far patient did have x-ray on the right lateral ankle area which did not show any bony changes patient has been started on vancomycin infectious disease was consulted for further management of antibiotic therapy. Review of Systems Positive point has been mentioned in HPI rest of the systems are negative Past Medical History Past Medical History: Diabetes Mellitus, Hyperlipidemia, Hypertension, Musculoskeletal Disorder, Renal Disease Additional Past Medical History / Comment(s): paraplegia 2002 History of Any Multi-Drug Resistant Organisms: MRSA Year Discovered:: 2016 MDRO Source:: L Ankle Past Surgical History: Back Surgery Additional Past Surgical History / Comment(s): Colonoscopy, left leg above the knee amputation Past Anesthesia/Blood Transfusion Reactions: No Reported Reaction Past Psychological History: No Psychological Hx Reported Smoking Status: Current every day smoker Past Alcohol Use History: None Reported Past Drug Use History: None Reported - Past Family History Father Family Medical History: Cancer Mother Family Medical History: Cancer, Deep Vein Thrombosis (DVT) Sister(s) Family Medical History: Cancer Brother(s) Additional Family Medical History / Comment(s): Patient has 2 brothers with no major medical problems. Patient has 5 children with no major medical problems. Medications and Allergies Home Medications Medication Instructions Recorded Confirmed Type Diazepam [Valium] 5 mg PO BID 06/15/16 01/16/20 History Escitalopram [Lexapro] 20 mg PO DAILY 06/15/16 01/16/20 History Ibuprofen [Motrin] 600 mg PO BID 06/15/16 01/16/20 History Baclofen [Lioresal] 10 mg PO TID 12/18/19 01/16/20 History Folic Acid 1 mg PO DAILY 12/18/19 01/16/20 History HYDROcodone/APAP 10-325MG [[place] 1 tab PO QID 12/18/19 01/16/20 History 10-325] Lisinopril 20 mg PO DAILY 12/18/19 01/16/20 History Metoprolol Succinate [Toprol XL] 25 mg PO DAILY 12/18/19 01/16/20 History Tamsulosin HCl [Flomax] 0.4 mg PO HS 12/18/19 01/16/20 History Vitamin E Acetate [Vitamin E] 200 unit PO DAILY 12/18/19 01/16/20 History Omeprazole 20 mg PO DAILY 12/19/19 01/16/20 History Insulin NPH Hum/Reg Insulin Hm 40 unit SQ BID 01/05/20 01/16/20 History [NovoLIN 70-30 100 UNIT/ML VIAL] buPROPion SR [Wellbutrin Sr] 100 mg PO DAILY 01/16/20 01/16/20 History Allergies Allergy/AdvReac Type Severity Reaction Status Date / Time cephalexin [From Keflex] Allergy Unknown Verified 01/16/20 19:28 levofloxacin [From Levaquin] Allergy Nausea & Verified 01/16/20 19:28 Vomiting,headache codeine AdvReac sleepy Verified 01/16/20 19:28 milk AdvReac Diarrhea Verified 01/16/20 19:28 morphine AdvReac Rash/Hives Verified 01/16/20 19:28 olmesartan [From Benicar] AdvReac blacks out Verified 01/16/20 19:28 Physical Exam Vitals: Vital Signs Temp Pulse Pulse Resp BP BP Pulse Ox 01/17/20 08:15 96 17 01/17/20 07:00 97.6 F 96 17 114/71 96 01/17/20 02:20 98.1 F 65 120/64 96 06/02/20 19:05 97.6 F 64 18 162/78 97 01/16/20 18:59 98.5 F 74 18 109/69 98 01/16/20 15:15 98.5 F 74 18 109/69 98 Intake and Output 01/16/20 01/17/20 01/17/20 22:59 06:59 14:59 Intake Total 500 1300 Balance 500 1300 Intake: Intake, IV Titration 500 1300 Amount Sodium Chloride 0.9% 1, 800 000 ml @ 100 mls/hr IV . Q10H [facility] Rx#:[id number] Vancomycin 2,500 mg In 500 500 Sodium Chloride 0.9% 500 ml 500 ml @ 167 mls/hr IVPB Q12H [facility] Rx#: [id number] Other: Voiding Method Urinal Urinal # Voids 1 2 Weight 136.078 kg GENERAL DESCRIPTION: Middle-aged male lying in bed, no distress. No tachypnea or accessory muscle of respiration use. HEENT: Shows Pallor , no scleral icterus. Oral mucous membrane is dry. NECK: Trachea central, no thyromegaly. LUNGS: Unlabored breathing. Clear to auscultation anteriorly. No wheeze or crack le. HEART: S1, S2, regular rate and rhythm. ABDOMEN: Soft, no tenderness , guarding or rigidity EXTREMITIES: Right lateral ankle wound with slough tissue some surrounding swelling and redness no foul-smelling drainage was noticed sKIN: No rash, no masses palpable. NEUROLOGICAL: The patient is awake, alert, oriented x3, mood and affect normal. Results CBC & Chem 7: 01/17/20 06:49 01/17/20 06:49 Labs: Abnormal Lab Results - Last 24 Hours (Table) 01/16/20 01/16/20 01/16/20 Range/Units 16:30 16:30 16:30 Hgb 12.4 L (13.0-17.5) gm/dL Hct 38.3 L (39.0-53.0) % Sodium 129 L (137-145) mmol/L Chloride 95 L (98-107) mmol/L Glucose 246 H (74-99) mg/dL POC Glucose (mg/dL) (75-99) mg/dL Plasma Lactic Acid Glenn 2.3 H* (0.7-2.0) mmol/L Total Bilirubin (0.2-1.3) mg/dL Total Protein (6.3-8.2) g/dL 01/16/20 01/17/20 01/17/20 Range/Units 20:55 06:49 06:49 Hgb 12.1 L (13.0-17.5) gm/dL Hct 38.7 L (39.0-53.0) % Sodium (137-145) mmol/L Chloride (98-107) mmol/L Glucose 146 H (74-99) mg/dL POC Glucose (mg/dL) 328 H (75-99) mg/dL Plasma Lactic Acid Glenn (0.7-2.0) mmol/L Total Bilirubin 0.1 L (0.2-1.3) mg/dL Total Protein 6.2 L (6.3-8.2) g/dL 01/17/20 01/17/20 Range/Units 06:54 11:41 Hgb (13.0-17.5) gm/dL Hct (39.0-53.0) % Sodium (137-145) mmol/L Chloride (98-107) mmol/L Glucose (74-99) mg/dL POC Glucose (mg/dL) 149 H 168 H (75-99) mg/dL Plasma Lactic Acid Glenn (0.7-2.0) mmol/L Total Bilirubin (0.2-1.3) mg/dL Total Protein (6.3-8.2) g/dL Microbiology - Last 24 Hours (Table) 01/16/20 16:30 Gram Stain - Preliminary Foot - Right Wound Culture - Preliminary Assessment and Plan Assessment: 1-patient with her right lateral ankle wound in this patient with underlying peripheral arterial disease and is status post angioplasty to the right leg and has been treated outpatient setting with oral Bactrim DS with worsening infection and failure of outpatient oral antibiotic therapy likely represent will be gram-positive skin ana underlying gram-negative infection less likely but not entirely excluded. 2-patient with multiple antibiotic allergies that would limit the number of antibiotics safe to use (1) Cellulitis of right leg Current Visit: Yes Status: Acute Code(s): L03.115 - CELLULITIS OF RIGHT LOWER LIMB SNOMED Code(s): 404843384 (2) Diabetic ulcer of lower leg Current Visit: Yes Status: Acute Code(s): E11.622 - TYPE 2 DIABETES MELLITUS WITH OTHER SKIN ULCER; L97.909 - NON-PRS CHRONIC ULC UNSP PRT OF UNSP LOW LEG W UNSP SEVERITY SNOMED Code(s): 378697623 Plan: 1-vancomycin pharmacy to dose her with a target trough of 15 while watching her kidney function and Vanco trough closely. 2-await debridement of the wound and deep cultures that were also remains at the extent of this wound and to make sure it is not extending down to the bone We will follow on clinical condition and cultures to further adjust medication if needed Thank you for this consultation we will follow the patient along with you Time with Patient: Greater than 30
[2020-01-18 07:23] LABS: Glucose,Whole Blood 168 mg/dL (75-99)
[2020-01-18] MEDS: INSULIN ASPART (NovoLOG) 100 UNIT/ML VIAL SQ SCH ×4 (07:33→20:55)
[2020-01-18] MEDS: NICOTINE 21MG/24HR PATCH TRANSDERM SCH (07:34)
[2020-01-18] MEDS: LISINOPRIL 20 MG TAB PO SCH (07:38)
[2020-01-18] MEDS: PANTOPRAZOLE 40 MG TABLET PO SCH (07:38)
[2020-01-18] MEDS: IBUPROFEN 600 MG TAB PO SCH ×2 (07:38→20:55)
[2020-01-18] MEDS: VITAMIN E (DL,TOCOPHERYL ACET) 400 UNIT CAP PO SCH (07:38)
[2020-01-18] MEDS: BACLOFEN 10 MG TAB PO SCH ×3 (07:39→20:56)
[2020-01-18] MEDS: DIAZEPAM 5 MG TAB PO SCH ×2 (07:39→20:55)
[2020-01-18] MEDS: HEPARIN SODIUM,PORCINE 5,000 UNIT/ML 1 ML VIAL SQ SCH ×2 (07:39→20:55)
[2020-01-18] MEDS: ESCITALOPRAM 20 MG TAB PO SCH (07:39)
[2020-01-18] MEDS: FOLIC ACID 1 MG TAB PO SCH (07:39)
[2020-01-18] MEDS: HYDROcodone/APAP 10-325MG 1 EACH TAB PO SCH ×4 (07:39→20:56)
[2020-01-18] MEDS: buPROPion SR 100 MG TABLET.ER PO SCH ×2 (07:39→20:55)
[2020-01-18] MEDS: METOPROLOL SUCCINATE (ER) 25 MG TAB.ER.24H PO SCH (07:42)
[2020-01-18 08:31] LABS: Basophils % (A) 0 %; Eosinophils # (A) 0.4 k/uL (0-0.7); Eosinophils % (A) 6 %; HCT 38.9 % (39.0-53.0); HGB 12.3 gm/dL (13.0-17.5); Lymphocytes # (A) 1.4 k/uL (1.0-4.8); Lymphocytes % (A) 20 %; MCH 26.4 pg (25.0-35.0); MCHC 31.5 g/dL (31.0-37.0); MCV 83.8 fL (80.0-100.0); Mean Platelet Volume 7.4; Monocytes # (A) 0.3 k/uL (0-1.0); Monocytes % (A) 4 %; Neutrophils # (A) 4.6 k/uL (1.3-7.7); Neutrophils % (A) 68 %; Platelet Count 191 k/uL (150-450); RBC 4.64 m/uL (4.30-5.90); RDW 13.7 % (11.5-15.5); WBC 6.7 k/uL (3.8-10.6)
[2020-01-18] MEDS ORDERED: IV FLUID CONTINUATION 1,000 ML IV ONE (08:41)
[2020-01-18 09:11] LABS: African American GFR (CKD) >90 (>60 ml/min/1.73 sqM); Anion Gap 5 mmol/L; Blood Urea Nitrogen 14 mg/dL (9-20); Calcium 8.8 mg/dL (8.4-10.2); Carbon Dioxide 23 mmol/L (22-30); Chloride 110 mmol/L (98-107); Glucose 173 mg/dL (74-99); Non-African American GFR(CKD) >90 (>60 ml/min/1.73 sqM); Potassium 4.9 mmol/L (3.5-5.1); Sodium 138 mmol/L (137-145)
--- NOTE | 2020-01-18 09:29 | P.PN ---
Progress Note - Text Progress Note Date: 01/18/20 Dr. Mallory discussed with patient regarding code status will be FULL CODE during procedure and resume DNR status after procedure. Pt. agreeable.
[2020-01-18] MEDS: SODIUM CHLORIDE 0.9% 1,000 ML IV SCH ×2 (09:48→12:31)
[2020-01-18] MEDS ORDERED: MIDAZOLAM 2 MG/2 ML VIAL ONE (10:01)
[2020-01-18] MEDS ORDERED: KETAMINE 10 MG/ML 20 ML VIAL ONE (10:01)
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
[2020-01-18 10:37] VITALS: BMI 36.5
--- NOTE | 2020-01-18 10:52 | P.OP ---
Date of Procedure: 01/18/20 Description of Procedure: Preoperative diagnosis: [Right lateral ankle wound, infected] Postoperative diagnosis: Same Procedure: [#1 sharp excisional right ankle with debridement of bone. 6.7 x 4.5 x 2.2 #2 wound VAC placement] Surgeon: Denae Mallory D.O. EBL: [5 mL] IV fluids: [See anesthesia records] Urine output: [None measured] Drains: [Wound VAC] Complications: [None immediately apparent] Condition: [Stable to PACU] Operative indication and findings: [The patient is a 59-year-old diabetic male with a previous left leg amputation due to infection. He has a long-standing history of right ankle wound that is nonhealing. He previously underwent excisional debridement along with growth factor placement. He was seen in follow-up in the office and found to have purulent drainage. At that point he was admitted to hospital for IV antibiotics and evaluation. He is to the OR today for sharp excisional debridement and wound VAC placement.] Procedure in detail: [Patient was taken to the operative suite and placed in supine position. The right lower extremity was prepped, draped in usual sterile fashion. A preprocedure timeout was performed, all parties are in agreement. The inferior pole of the wound was sharply excised to allow for opening of the abscess pocket. Purulent drainage was expressed. Further sharp excisional the posterior portion of the wound was performed to allow for opening to the areas of purulence. The deep tissues were cultured. Curet was used for sharp ex cisional debridement of the remaining tissue. The wound itself did extend down into the bone and ankle mortise. There was copiously irrigated and there are no further pockets of purulence or fluctuance. The wound VAC was placed. Patient was allowed awaken from anesthesia and transferred to PACU in stable condition having tolerated the procedure well.]
[2020-01-18 11:15] LABS: Glucose,Whole Blood 141 mg/dL (75-99)
[2020-01-18] MEDS ORDERED: SODIUM CHLORIDE 0.9% 1,000 ML IV ONE (11:25)
[2020-01-18 11:51] LABS: Glucose,Whole Blood 132 mg/dL (75-99)
[2020-01-18 12:50] LABS: Erythrocyte Sedimentation Rate 20 mm/hr (0-15)
[2020-01-18 16:28] LABS: Glucose,Whole Blood 223 mg/dL (75-99)
[2020-01-18] MEDS: INSULN ASP PRT/INSULIN ASPART 100 UNIT/ML 10 ML VIAL SQ SCH (17:33)
[2020-01-18] MEDS: ACETAMINOPHEN TAB 325 MG TAB PO PRN (19:09)
[2020-01-18 20:42] LABS: Glucose,Whole Blood 169 mg/dL (75-99)
[2020-01-18] MEDS: TAMSULOSIN 0.4 MG CAP.ER.24H PO SCH (20:56)
--- NOTE | 2020-01-18 23:24 | PN ---
PROGRESS NOTE DATE OF SERVICE: 01/18/2020 REASON FOR FOLLOWUP: Right lateral ankle acute osteomyelitis. INTERVAL HISTORY: The patient was taken to the OR this morning. The patient is status post debridement of his right lateral ankle wound area. He was noted to have the wound extending down to the bone with a pus pocket, which has been cultured. The patient tolerated the procedure. Denies any chest pain or shortness of breath or cough. No abdominal pain or diarrhea. PHYSICAL EXAMINATION: Blood pressure 172/80 with a pulse of 62, temperature 97.5. He is 97% on room air. General description is a middle-aged male lying in bed in no distress. RESPIRATORY SYSTEM: Unlabored breathing. Clear to auscultation anteriorly. HEART: S1, S2. Regular rate and rhythm. ABDOMEN: Soft. No tenderness. The right lateral wound is currently dressed up. No obvious drainage on the dressing. LABS: Hemoglobin is 12.3 with a white count of 6.7. CRP 21.8. ESR is 20. DIAGNOSTIC IMPRESSION AND PLAN: Patient with a right lateral ankle wound with underlying osteomyelitis, acute, and diabetes mellitus. We will keep the patient on current course of antibiotics in the form of vancomycin and cefepime while waiting for the culture to finalize. He will need a PICC line for outpatient IV antibiotic. Continue with supportive care. MMODL / IJN: [id number] /
[2020-01-19] MEDS: ACETAMINOPHEN TAB 325 MG TAB PO PRN (01:47)
[2020-01-19] MEDS: SODIUM CHLORIDE 0.9% 1,000 ML IV SCH ×3 (04:07→23:49)
[2020-01-19] MEDS ORDERED: VANCOMYCIN TROUGH DUE 1 EACH MISC MISCELLANE ONE (05:00)
[2020-01-19] MEDS: VANCOMYCIN 2,500 MG in SODIUM CHLORIDE 0.9% 500 ML 500 ML IVPB SCH (05:38)
[2020-01-19 05:59] LABS: African American GFR (CKD) >90 (>60 ml/min/1.73 sqM); Non-African American GFR(CKD) 81 (>60 ml/min/1.73 sqM)
[2020-01-19 07:18] LABS: Glucose,Whole Blood 175 mg/dL (75-99)
[2020-01-19] MEDS: HEPARIN SODIUM,PORCINE 5,000 UNIT/ML 1 ML VIAL SQ SCH ×2 (08:19→21:00)
[2020-01-19] MEDS: INSULIN ASPART (NovoLOG) 100 UNIT/ML VIAL SQ SCH ×4 (08:21→20:55)
[2020-01-19] MEDS: INSULN ASP PRT/INSULIN ASPART 100 UNIT/ML 10 ML VIAL SQ SCH ×2 (08:21→17:33)
[2020-01-19] MEDS: NICOTINE 21MG/24HR PATCH TRANSDERM SCH (08:22)
[2020-01-19] MEDS: VITAMIN E (DL,TOCOPHERYL ACET) 400 UNIT CAP PO SCH (08:22)
[2020-01-19] MEDS: HYDROcodone/APAP 10-325MG 1 EACH TAB PO SCH ×4 (08:22→20:59)
[2020-01-19] MEDS: DIAZEPAM 5 MG TAB PO SCH ×2 (08:22→21:00)
[2020-01-19] MEDS: LISINOPRIL 20 MG TAB PO SCH (08:22)
[2020-01-19] MEDS: buPROPion SR 100 MG TABLET.ER PO SCH ×2 (08:22→21:00)
[2020-01-19] MEDS: ESCITALOPRAM 20 MG TAB PO SCH (08:22)
[2020-01-19] MEDS: PANTOPRAZOLE 40 MG TABLET PO SCH (08:22)
[2020-01-19] MEDS: METOPROLOL SUCCINATE (ER) 25 MG TAB.ER.24H PO SCH (08:23)
[2020-01-19] MEDS: IBUPROFEN 600 MG TAB PO SCH ×2 (08:23→21:00)
[2020-01-19] MEDS: FOLIC ACID 1 MG TAB PO SCH (08:23)
[2020-01-19] MEDS: BACLOFEN 10 MG TAB PO SCH ×3 (08:23→20:59)
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
--- NOTE | 2020-01-19 11:23 | P.PN ---
Subjective Progress Note Date: 01/19/20 Patient seen and examined at the bedside. He is postop day 1 status post Sharp excisional right ankle with debridement of bone. Patient sitting up, states he had worked with physical therapy this morning. He states his pain is well controlled. Wound VAC is intact. The patient denies any shortness of breath, chest pain, fever or chills. Infectious diseases on consult for antibiotic therapy. Objective - Vital Signs Vital signs: Vital Signs Temp 97.8 F 01/19/20 07:10 Pulse 60 01/19/20 08:00 Resp 18 01/19/20 08:00 BP 162/84 01/19/20 07:10 Pulse Ox 96 01/19/20 07:10 Intake & Output 01/18/20 01/19/20 01/19/20 18:59 06:59 18:59 Intake Total 425 1300 Output Total 5 900 Balance 420 1300 -900 Weight 136.078 kg Intake: IV 425 Intake, IV Titration 1300 Amount Sodium Chloride 0.9% 1, 800 000 ml @ 100 mls/hr IV . Q10H GWEN Rx#:[id number] Vancomycin 2,500 mg In 500 Sodium Chloride 0.9% 500 ml 500 ml @ 167 mls/hr IVPB Q12H GWEN Rx#: [id number] Output: Urine 900 Estimated Blood Loss 5 Other: Voiding Method Urinal Urinal Urinal # Voids 3 3 3 - Exam General appearance: The patient is alert, oriented, in no acute distress. HET: Head is normocephalic and atraumatic. Pupils are equal and reactive. Oropharynx is clear without lesions. Neck: Supple without lymphadenopathy. Trachea midline. Heart: S1 S2. Regular rate and rhythm. Lungs: No crackles or wheezes are heard. Extremities: Right lower extremity with dressing and intact wound VAC with good suction. Neurological: No focal deficits. Strength and sensation are grossly intact. - Labs CBC & Chem 7: 01/18/20 07:35 01/19/20 05:35 Labs: Abnormal Lab Results - Last 24 Hours (Table) 01/18/20 01/18/20 01/18/20 Range/Units 07:35 11:02 11:50 ESR 20 H (0-15) mm/hr POC Glucose (mg/dL) 141 H 132 H (75-99) mg/dL Vancomycin Trough ug/mL 01/18/20 01/18/20 01/19/20 Range/Units 16:27 20:41 05:35 ESR (0-15) mm/hr POC Glucose (mg/dL) 223 H 169 H (75-99) mg/dL Vancomycin Trough 31.2 H* ug/mL 01/19/20 Range/Units 07:09 ESR (0-15) mm/hr POC Glucose (mg/dL) 175 H (75-99) mg/dL Vancomycin Trough ug/mL Microbiology - Last 24 Hours (Table) 01/18/20 10:39 Gram Stain - Preliminary Ankle - Right Wound Culture - Preliminary 01/16/20 16:30 Gram Stain - Final Foot - Right Wound Culture - Final 01/18/20 10:39 Anaerobic Culture - Preliminary Ankle - Right 01/16/20 16:30 Blood Culture - Preliminary Blood No Growth after 48 hours Assessment and Plan Assessment: 1. Right lower extremity lateral malleolus nonhealing wound, status post op day #1 for sharp excisional right ankle debridement 2. Peripheral vascular disease of the right lower extremity with history of a left AKA 3. Status post right lower extremity aortogram with balloon angioplasty 4. Diabetes 5. Morbid obesity 6. Tobacco abuse Plan: Continue with wound VAC to the right lower extremity. Dr. Mallory discussed with patient that wound/infection extends into bone and joint. Continue with recommendations for IV antibiotic therapy per infectious disease. Cultures pending. Continue with physical therapy. The above dictated assessment and findings were discussed with Dr. Mallory. The impression and plan of care have been directed as dictated.
[2020-01-19 11:43] LABS: Glucose,Whole Blood 204 mg/dL (75-99)
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
[2020-01-19] MEDS ORDERED: LIDOCAINE 1% INJ 10MG/ML (20 ML MDV) SQ ONE (14:42)
--- NOTE | 2020-01-19 15:11 | IR ---
PICC LINE PLACEMENT: HISTORY: Infection requiring long-term antibiotic therapy PROCEDURE: Ultrasound and fluoroscopic guidance of PICC line placement. COMPLICATIONS: None ANESTHESIA: 1. 1% Lidocaine locally. FINDINGS/TECHNIQUE: The procedure was explained to the patient. The risks, complications, benefits and alternatives were discussed and any questions were answered. Informed consent was obtained. The patient was placed supine on the fluoroscopic table and prepped and draped in the usual sterile fash ion. Utilizing a 21 gauge needle and sonographic and fluoroscopic guidance, access in the right bas ilic vein was achieved and there is placement of a 0.018 guidewire. The vein is patent. A 4-F sheat h was placed over the guidewire. The guidewire and dilator were removed and a 4-F. PICC line was hay[place] glen through the sheath with the tip at the level of the SVC. The sheath was removed, the catheter wa s flushed and sutured into position. The patient was stable throughout the procedure and remained st able upon discharge from the Department of Radiology. The vein puncture was patent under ultrasound. A gonzalez scale image was obtained to document patency of the vein punctured. All elements of the maximal barrier technique were utilized. FLUOROSCOPY TIME: 0.7 minutes and one image submitted IMPRESSION: Successful PICC line placement under ultrasound and fluoroscopic guidance.
--- NOTE | 2020-01-19 15:50 | PN ---
PROGRESS NOTE DATE OF SERVICE: 01/19/2020 REASON FOR FOLLOWUP: Right lateral ankle wound with underlying osteomyelitis noted. The patient is currently afebrile. The patient is feeling better. The patient's pain is currently controlled. Denies having any chest pain, no shortness of breath or cough. No abdominal pain or any worsening pain to the right lateral ankle area. PHYSICAL EXAMINATION: Blood pressure 160/84 with a pulse of 60, temperature is 97.8, he is 96% on room air. General description is a middle-aged male, up in the bed in no distress. RESPIRATORY SYSTEM: Unlabored breathing, clear to auscultation anteriorly. HEART: S1, S2. Regular rate and rhythm. ABDOMEN: Soft, no tenderness. Right lateral ankle was currently dressed up. No obvious drainage on the dressing. LABS: Vancomycin trough has been elevated to 21.2. Wound culture is currently pending. DIAGNOSTIC IMPRESSION AND PLAN: Patient with right lateral ankle wound with evidence of extension down to the bone, status post debridement and deep cultures. We are waiting for the culture to finalize to determine discharge antibiotics. Vanco dose needs to be cut back to keep the trough around 15. Discussed with pharmacy and will monitor clinical course closely. MMODL / IJN: [id number] /
[2020-01-19 16:57] LABS: Glucose,Whole Blood 188 mg/dL (75-99)
[2020-01-19 20:29] LABS: Glucose,Whole Blood 129 mg/dL (75-99)
[2020-01-19] MEDS: TAMSULOSIN 0.4 MG CAP.ER.24H PO SCH (21:00)
[2020-01-20] MEDS: VANCOMYCIN 2,000 MG in SODIUM CHLORIDE 0.9% 500 ML 500 ML IVPB SCH ×2 (05:00→20:31)
[2020-01-20 07:21] LABS: Glucose,Whole Blood 112 mg/dL (75-99)
[2020-01-20] MEDS: INSULIN ASPART (NovoLOG) 100 UNIT/ML VIAL SQ SCH ×4 (07:34→20:31)
[2020-01-20 08:25] LABS: African American GFR (CKD) >90 (>60 ml/min/1.73 sqM); Non-African American GFR(CKD) >90 (>60 ml/min/1.73 sqM)
[2020-01-20] MEDS: HEPARIN SODIUM,PORCINE 5,000 UNIT/ML 1 ML VIAL SQ SCH ×2 (08:32→20:31)
[2020-01-20] MEDS: INSULN ASP PRT/INSULIN ASPART 100 UNIT/ML 10 ML VIAL SQ SCH ×2 (08:32→18:09)
[2020-01-20] MEDS: ESCITALOPRAM 20 MG TAB PO SCH (08:33)
[2020-01-20] MEDS: HYDROcodone/APAP 10-325MG 1 EACH TAB PO SCH ×4 (08:33→22:14)
[2020-01-20] MEDS: FOLIC ACID 1 MG TAB PO SCH (08:33)
[2020-01-20] MEDS: LISINOPRIL 20 MG TAB PO SCH (08:33)
[2020-01-20] MEDS: buPROPion SR 100 MG TABLET.ER PO SCH ×2 (08:34→20:31)
[2020-01-20] MEDS: BACLOFEN 10 MG TAB PO SCH ×3 (08:34→20:31)
[2020-01-20] MEDS: VITAMIN E (DL,TOCOPHERYL ACET) 400 UNIT CAP PO SCH (08:34)
[2020-01-20] MEDS: IBUPROFEN 600 MG TAB PO SCH ×2 (08:34→20:31)
[2020-01-20] MEDS: DIAZEPAM 5 MG TAB PO SCH ×2 (08:34→20:31)
[2020-01-20] MEDS: METOPROLOL SUCCINATE (ER) 25 MG TAB.ER.24H PO SCH (08:34)
[2020-01-20] MEDS: NICOTINE 21MG/24HR PATCH TRANSDERM SCH (08:34)
[2020-01-20] MEDS: PANTOPRAZOLE 40 MG TABLET PO SCH (08:34)
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
--- NOTE | 2020-01-20 10:09 | P.PN ---
Subjective Progress Note Date: 01/20/20 Patient seen and examined. Postoperative from right ankle debridement. Currently cultures preliminarily no growth. Given the looks at surgery and. An drainage, he will need some sort of IV antibiotic. Appreciate ID recommendations. Continue offloading. Change wound VAC today. Plan going forward is discussed with the patient is seemingly agrees and as such. Objective - Vital Signs Vital signs: Vital Signs Temp 97.5 F L 01/20/20 07:00 Pulse 58 L 01/20/20 08:00 Resp 16 01/20/20 08:00 BP 119/75 01/20/20 07:00 Pulse Ox 96 01/20/20 07:00 Intake & Output 01/19/20 01/20/20 01/20/20 18:59 06:59 18:59 Intake Total 1305 300 Output Total 2800 1000 Balance -1495 300 -1000 Weight 136.078 kg Intake: Intake, IV Titration 825 300 Amount Sodium Chloride 0.9% 1, 500 300 000 ml @ 100 mls/hr IV . Q10H [facility] Rx#:[id number] Vancomycin 2,000 mg In 325 Sodium Chloride 0.9% 500 ml 500 ml @ 167 mls/hr IVPB Q16H [facility] Rx#: [id number] Oral 480 Output: Urine 2800 1000 Other: Voiding Method Urinal Urinal Urinal # Voids 3 3 3 - Labs CBC & Chem 7: 01/18/20 07:35 01/20/20 07:09 Labs: Abnormal Lab Results - Last 24 Hours (Table) 01/19/20 01/19/20 01/19/20 Range/Units 11:40 16:55 20:15 POC Glucose (mg/dL) 204 H 188 H 129 H (75-99) mg/dL 01/20/20 Range/Units 07:20 POC Glucose (mg/dL) 112 H (75-99) mg/dL Microbiology - Last 24 Hours (Table) 01/16/20 16:30 Blood Culture - Preliminary Blood No Growth after 72 hours 01/18/20 10:39 Gram Stain - Preliminary Ankle - Right Wound Culture - Preliminary
[2020-01-20 11:44] LABS: Glucose,Whole Blood 211 mg/dL (75-99)
[2020-01-20 17:15] LABS: Glucose,Whole Blood 139 mg/dL (75-99)
[2020-01-20 20:24] LABS: Glucose,Whole Blood 181 mg/dL (75-99)
[2020-01-20] MEDS: TAMSULOSIN 0.4 MG CAP.ER.24H PO SCH (20:31)
[2020-01-20] MEDS: SODIUM CHLORIDE 0.9% 1,000 ML IV SCH (20:42)
--- NOTE | 2020-01-21 00:20 | PN ---
PROGRESS NOTE DATE OF SERVICE: 01/20/2020 REASON FOR FOLLOWUP: Right lateral ankle wound and osteomyelitis. INTERVAL HISTORY: The patient is currently afebrile, has been breathing comfortably. Denies having any chest pain or cough. No abdominal pain. No pain in the right lateral leg wound area. PHYSICAL EXAMINATION: Blood pressure 100/62 with a pulse of 57. Temperature 98.1. He is 96% on room air. General description is a middle-aged male lying in bed in no distress. Respiratory system: Unlabored breathing, clear to auscultation anteriorly. Heart S1, S2. Regular rhythm and rate. Abdomen is soft, nontender. Right leg lateral malleolar wound is currently covered. RN who changed the wound VAC med mentioned overall wound looks clean. LABS: Creatinine 0.90. Wound culture still pending. DIAGNOSTIC IMPRESSION AND PLAN: Patient with right lateral ankle wound with underlying osteomyelitis. Culture has been negative so far. Patient to have a CEFAZOLIN AND LEVAQUIN ALLERGY. Keep the patient on vancomycin to get a PICC line on Wednesday to continue vancomycin, pharmacy to dose for a total dose 6 weeks and monitor clinical course closely. MMODL / IJN: [id number] /
[2020-01-21] MEDS: SODIUM CHLORIDE 0.9% 1,000 ML IV SCH ×2 (05:25→21:11)
[2020-01-21 07:55] LABS: HCT 37.4 % (39.0-53.0); MCH 26.7 pg (25.0-35.0); MCHC 32.1 g/dL (31.0-37.0); MCV 83.4 fL (80.0-100.0); Mean Platelet Volume 7.3; Platelet Count 181 k/uL (150-450); RBC 4.49 m/uL (4.30-5.90); RDW 13.7 % (11.5-15.5); WBC 8.2 k/uL (3.8-10.6)
[2020-01-21 08:05] LABS: Glucose,Whole Blood 106 mg/dL (75-99)
[2020-01-21 08:09] LABS: African American GFR (CKD) >90 (>60 ml/min/1.73 sqM); Anion Gap 7 mmol/L; Blood Urea Nitrogen 21 mg/dL (9-20); Calcium 9.4 mg/dL (8.4-10.2); Carbon Dioxide 26 mmol/L (22-30); Chloride 107 mmol/L (98-107); Glucose 113 mg/dL (74-99); Non-African American GFR(CKD) 83 (>60 ml/min/1.73 sqM); Potassium 4.9 mmol/L (3.5-5.1); Sodium 140 mmol/L (137-145)
[2020-01-21] MEDS: INSULIN ASPART (NovoLOG) 100 UNIT/ML VIAL SQ SCH ×4 (08:15→21:05)
[2020-01-21] MEDS: IBUPROFEN 600 MG TAB PO SCH ×2 (08:24→21:05)
[2020-01-21] MEDS: NICOTINE 21MG/24HR PATCH TRANSDERM SCH (08:24)
[2020-01-21] MEDS: HYDROcodone/APAP 10-325MG 1 EACH TAB PO SCH ×4 (08:24→21:05)
[2020-01-21] MEDS: PANTOPRAZOLE 40 MG TABLET PO SCH (08:24)
[2020-01-21] MEDS: VITAMIN E (DL,TOCOPHERYL ACET) 400 UNIT CAP PO SCH (08:25)
[2020-01-21] MEDS: buPROPion SR 100 MG TABLET.ER PO SCH ×2 (08:25→21:05)
[2020-01-21] MEDS: LISINOPRIL 20 MG TAB PO SCH (08:25)
[2020-01-21] MEDS: BACLOFEN 10 MG TAB PO SCH ×3 (08:25→21:05)
[2020-01-21] MEDS: INSULN ASP PRT/INSULIN ASPART 100 UNIT/ML 10 ML VIAL SQ SCH ×2 (08:25→17:17)
[2020-01-21] MEDS: METOPROLOL SUCCINATE (ER) 25 MG TAB.ER.24H PO SCH (08:25)
[2020-01-21] MEDS: FOLIC ACID 1 MG TAB PO SCH (08:25)
[2020-01-21] MEDS: ESCITALOPRAM 20 MG TAB PO SCH (08:25)
[2020-01-21] MEDS: DIAZEPAM 5 MG TAB PO SCH ×2 (08:25→21:05)
[2020-01-21] MEDS: HEPARIN SODIUM,PORCINE 5,000 UNIT/ML 1 ML VIAL SQ SCH ×2 (08:26→21:05)
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
[2020-01-21 11:57] LABS: Glucose,Whole Blood 172 mg/dL (75-99)
[2020-01-21] MEDS: VANCOMYCIN 2,000 MG in SODIUM CHLORIDE 0.9% 500 ML 500 ML IVPB SCH (13:21)
[2020-01-21 17:01] LABS: Glucose,Whole Blood 141 mg/dL (75-99)
[2020-01-21 20:35] LABS: Glucose,Whole Blood 194 mg/dL (75-99)
[2020-01-21] MEDS: TAMSULOSIN 0.4 MG CAP.ER.24H PO SCH (21:05)
[2020-01-22] MEDS ORDERED: VANCOMYCIN TROUGH DUE 1 EACH MISC MISCELLANE ONE (04:00)
--- NOTE | 2020-01-22 04:08 | PN ---
PROGRESS NOTE DATE OF SERVICE: 01/21/2020 REASON FOR FOLLOWUP: Right lateral ankle osteomyelitis acute. INTERVAL HISTORY: The patient is currently afebrile, has been breathing comfortably. Denies having any chest pain. No shortness of breath or cough. No abdominal pain or any worsening of the right lateral wound area. PHYSICAL EXAMINATION: Blood pressure 116/61 with a pulse of 62, temperature 97.5. He is 95% on room air. General description is a middle-aged male lying in bed in no distress. RESPIRATORY SYSTEM: Unlabored breathing, clear to auscultation anteriorly. HEART: S1, S2. Regular rate and rhythm. ABDOMEN: Soft, no tenderness. Right lateral leg wound is currently dressed up with the wound VAC. LABS: Hemoglobin is 12, white count 8.2, BUN of 21, creatinine 1.0. DIAGNOSTIC IMPRESSION AND PLAN: Patient with right lateral ankle wound with underlying osteomyelitis, status post debridement of the wound. Culture has been negative so far. However, the patient do have allergies to LEVAQUIN and CEPHALEXIN. The patient is on vancomycin to continue for a total of 6 weeks and monitor his clinical course closely. Local wound care to continue with wound VAC. Continue with supportive care. MMODL / IJN: [id number] /
[2020-01-22] MEDS: VANCOMYCIN 2,000 MG in SODIUM CHLORIDE 0.9% 500 ML 500 ML IVPB SCH (04:14)
[2020-01-22] MEDS: SODIUM CHLORIDE 0.9% 1,000 ML IV SCH ×2 (04:17→12:44)
[2020-01-22 06:52] LABS: Glucose,Whole Blood 97 mg/dL (75-99)
[2020-01-22 07:34] VITALS: RESP 16
[2020-01-22] MEDS: PANTOPRAZOLE 40 MG TABLET PO SCH (07:36)
[2020-01-22] MEDS: IBUPROFEN 600 MG TAB PO SCH (07:36)
[2020-01-22] MEDS: ESCITALOPRAM 20 MG TAB PO SCH (07:36)
[2020-01-22] MEDS: buPROPion SR 100 MG TABLET.ER PO SCH (07:36)
[2020-01-22] MEDS: LISINOPRIL 20 MG TAB PO SCH (07:36)
[2020-01-22] MEDS: METOPROLOL SUCCINATE (ER) 25 MG TAB.ER.24H PO SCH (07:37)
[2020-01-22] MEDS: FOLIC ACID 1 MG TAB PO SCH (07:37)
[2020-01-22] MEDS: BACLOFEN 10 MG TAB PO SCH ×2 (07:37→15:04)
[2020-01-22] MEDS: VITAMIN E (DL,TOCOPHERYL ACET) 400 UNIT CAP PO SCH (07:37)
[2020-01-22] MEDS: HEPARIN SODIUM,PORCINE 5,000 UNIT/ML 1 ML VIAL SQ SCH (07:39)
[2020-01-22] MEDS: NICOTINE 21MG/24HR PATCH TRANSDERM SCH (07:39)
[2020-01-22] MEDS: INSULIN ASPART (NovoLOG) 100 UNIT/ML VIAL SQ SCH ×2 (07:41→12:44)
[2020-01-22] MEDS: HYDROcodone/APAP 10-325MG 1 EACH TAB PO SCH ×3 (07:49→17:03)
[2020-01-22] MEDS: INSULN ASP PRT/INSULIN ASPART 100 UNIT/ML 10 ML VIAL SQ SCH ×2 (08:16→17:12)
[2020-01-22] MEDS: DIAZEPAM 5 MG TAB PO SCH (09:28)
[2020-01-22 11:33] LABS: Glucose,Whole Blood 104 mg/dL (75-99)
--- NOTE | 2020-01-22 14:01 | PN ---
PROGRESS NOTE DATE OF SERVICE: 01/22/2020 REASON FOR FOLLOW UP: Right lateral ankle osteomyelitis with multiple antibiotic allergies. INTERVAL HISTORY: The patient is currently afebrile, has been breathing comfortably, denies having any chest pain, cough. No nausea, vomiting, abdominal pain, or any worsening pain to the right lateral ankle area. PHYSICAL EXAMINATION: Blood pressure 140/72 with a pulse of 49, temperature 98.5. He is 94% on room air. General description is a middle-aged male, lying in bed in no distress. RESPIRATORY SYSTEM: Unlabored breathing, clear to auscultation anteriorly. HEART: S1, S2. Regular rate and rhythm. ABDOMEN: Soft, no tenderness. LABS: No new labs have been obtained today. Vancomycin trough slightly on the high side. Wound culture now showing an anaerobic gram-positive as well as gram-negative bacilli. DIAGNOSTIC IMPRESSION AND PLAN: Patient with right lateral ankle osteomyelitis. Cultures now showing anaerobic in this patient who did have a CEPHALEXIN ALLERGY. We will keep the patient on vancomycin pharmacy to dose along with oral Flagyl. Local wound care per Surgery. Continue supportive care. MMODL / IJN: [id number] /
--- NOTE | 2020-01-22 14:54 | P.PN ---
Subjective Progress Note Date: 01/22/20 Patient seen and examined at the bedside. Patient states he is doing well overall. The plan is for discharge today home with home care for IV antibiotic. Patient had PICC line placed over the weekend. He denies any fever or chills, shortness of breath or chest pain. Patient states he uses a wheelchair at home to get around, however does have a prosthetic for his left lower extremity Objective - Vital Signs Vital signs: Vital Signs Temp 97.5 F L 01/22/20 07:07 Pulse 49 L 01/22/20 08:00 Resp 16 01/22/20 07:07 BP 141/73 01/22/20 07:07 Pulse Ox 94 L 01/22/20 07:07 Intake & Output 01/21/20 01/22/20 01/22/20 18:59 06:59 18:59 Intake Total 2180 Output Total 1555 Balance 625 Intake: Intake, IV Titration 1300 Amount Sodium Chloride 0.9% 1, 800 000 ml @ 100 mls/hr IV . Q10H GWEN Rx#:[id number] Vancomycin 2,000 mg In 500 Sodium Chloride 0.9% 500 ml 500 ml @ 167 mls/hr IVPB Q16H GWEN Rx#: [id number] Oral 880 Output: Drainage 5 Right Lateral Ankle 5 Urine 1550 Other: Voiding Method Urinal Urinal Urinal Diaper Incontinent # Voids 3 5 # Bowel Movements 1 - Exam General appearance: The patient is alert, oriented, in no acute distress. HET: Head is normocephalic and atraumatic. Pupils are equal and reactive. Oropharynx is clear without lesions. Neck: Supple without lymphadenopathy. Trachea midline. Heart: S1 S2. Regular rate and rhythm. Lungs: No crackles or wheezes are heard. Extremities: Right lower extremity with dressing and intact wound VAC with good suction. Neurological: No focal deficits. Strength and sensation are grossly intact. - Labs CBC & Chem 7: 01/21/20 07:06 01/21/20 07:06 Labs: Abnormal Lab Results - Last 24 Hours (Table) 01/21/20 01/21/20 01/21/20 Range/Units 11:47 16:54 20:34 POC Glucose (mg/dL) 172 H 141 H 194 H (75-99) mg/dL Microbiology - Last 24 Hours (Table) 01/16/20 16:30 Blood Culture - Preliminary Blood No Growth after 120 hours Assessment and Plan Assessment: 1. Right lower extremity lateral malleolus nonhealing wound, status post op day #4 for sharp excisional right ankle debridement 2. Peripheral vascular disease of the right lower extremity with history of a left AKA 3. Status post right lower extremity aortogram with balloon angioplasty 4. Diabetes 5. Morbid obesity 6. Tobacco abuse Plan: Continue with wound VAC to the right lower extremity. Patient to follow-up with Dr. Peters in the office in 1-2 weeks. Patient will be discharged home with home care for IV antibiotics as recommended per infectious disease. Continue with physical therapy. The above dictated assessment and findings were discussed with Dr. Mallory. The impression and plan of care have been directed as dictated.
[2020-01-22 15:48] VITALS: BP 139/70; PULSE 54; TEMP 97.7
[2020-01-22 16:44] LABS: Glucose,Whole Blood 161 mg/dL (75-99)
[2020-01-22] MEDS ORDERED: VANCOMYCIN 1,750 MG in SODIUM CHLORIDE 0.9% 500 ML 500 ML IVPB SCH (21:00)
--- NOTE | 2020-01-24 09:39 | CDI ---
Documentation Clarification Form Date: 01/24/20 From: Kathi Silva Phone: If you have a question about this query, please contact Kaur Gonzalez, Content Production Specialist at [phone] between 8am and 5pm. Admit Date: 01/16/20 Discharge Date: 01/22/20 Patient Name: ESTRELLA BYRNES Visit Number: [id number] ATTENTION: The Clinical Documentation Specialists (CDI) and [facility] Coding Staff appreciate your assistance in clarifying documentation. Please respond to the clarification below the line at the bottom and electronically sign. The CDI & [facility] Coding staff will review the response and follow-up if needed. Please note: Queries are made part of the Legal Health Record. If you have any questions, please contact the author of this message via ITS. Dear Dr. Sudheer Trevino, CKD is documented in the infectious disease consult. History/Risk Factors: DM w osteo, PVD hindfoot arthrpathy,hyperglycemia; morbid obesity, hyperlipidemia, Lt AKA Clinical Indicators: 01/15-01/20 Current BUN: 18, 15, 14, 21 Current CR: 1.03, 0.89, 0.88, 1.02, 0.90, 1.00 Current GFR: 80, >90, >90, 81, >90, 83 Treatment: IV fluids, In order to capture the severity of condition, please clarify the stage of the CKD, if known: CKD ruled out CKD Stage 1 (GFR > 90) CKD Stage 2 (GFR 60-89) CKD Stage 3 (GFR 30-59) CKD Stage 4 (GFR 15-29) CKD Stage 5 (GFR <15) ESRD Other, please specify Unable to determine CKD 2 MTDD
== END 2020-01-22 17:40 | disposition home health service (06) | DRG 982 ==
LOC: EC 15:13 → 4SSUR 17:12
PROVIDERS: ADMIT Family Medicine; ATTEND Family Medicine
PROC: 0QBJ0ZZ Excision of Right Fibula, Open Approach (ICD-10-PCS; principal; 2020-01-18 09:45)
PROC: 02HV33Z Insertion of Infusion Device into Superior Vena Cava, Percutaneous Approach (ICD-10-PCS; 2020-01-19)
DX: E11.69 Type 2 diabetes mellitus with other specified complication (principal); L97.319 Non-pressure chronic ulcer of right ankle with unspecified severity; M86.161 Other acute osteomyelitis, right tibia and fibula; G82.20 Paraplegia, unspecified; E87.1 Hypo-osmolality and hyponatremia; F33.9 Major depressive disorder, recurrent, unspecified; L03.115 Cellulitis of right lower limb; Z68.36 Body mass index [BMI] 36.0-36.9, adult; E11.51 Type 2 diabetes mellitus with diabetic peripheral angiopathy without gangrene; E11.618 Type 2 diabetes mellitus with other diabetic arthropathy; E11.622 Type 2 diabetes mellitus with other skin ulcer; Z89.612 Acquired absence of left leg above knee; E11.22 Type 2 diabetes mellitus with diabetic chronic kidney disease; I12.9 Hypertensive chronic kidney disease with stage 1 through stage 4 chronic kidney disease, or unspecified chronic kidney disease; N18.2 Chronic kidney disease, stage 2 (mild); I70.233 Atherosclerosis of native arteries of right leg with ulceration of ankle; E11.65 Type 2 diabetes mellitus with hyperglycemia; Z79.4 Long term (current) use of insulin; Z66 Do not resuscitate; Z11.59 Encounter for screening for other viral diseases; E78.5 Hyperlipidemia, unspecified; E66.01 Morbid (severe) obesity due to excess calories; F17.210 Nicotine dependence, cigarettes, uncomplicated; Z71.6 Tobacco abuse counseling; Z79.891 Long term (current) use of opiate analgesic; Z79.899 Other long term (current) drug therapy; Z86.14 Personal history of Methicillin resistant Staphylococcus aureus infection; Z85.46 Personal history of malignant neoplasm of prostate; Z98.890 Other specified postprocedural states; Z71.3 Dietary counseling and surveillance; Z88.5 Allergy status to narcotic agent; Z88.8 Allergy status to other drugs, medicaments and biological substances; Z88.1 Allergy status to other antibiotic agents; Z91.011 Allergy to milk products; Z83.2 Family history of diseases of the blood and blood-forming organs and certain disorders involving the immune mechanism; Z80.0 Family history of malignant neoplasm of digestive organs; Z80.3 Family history of malignant neoplasm of breast; Z80.8 Family history of malignant neoplasm of other organs or systems
CPT/HCPCS: 36415; 36573; 80048; 80053; 80202; 82565; 83036; 83605; 85025; 85027; 85610; 85652; 85730; 86140; 87040; 87070; 87075; 87205; 96361; 96365; 96367; 99285

== ENCOUNTER → 2020-06-24 | Outpatient (CLI) | payer OTHER ==
[2020-06-24 16:54] LABS: Basophils # (A) 0.1 k/uL (0-0.2); Basophils % (A) 1 %; Eosinophils # (A) 0.6 k/uL (0-0.7); Eosinophils % (A) 7 %; HCT 35.8 % (39.0-53.0); Lymphocytes % (A) 23 %; MCHC 33.7 g/dL (31.0-37.0); MCV 83.2 fL (80.0-100.0); Mean Platelet Volume 7.5; Monocytes # (A) 0.3 k/uL (0-1.0); Monocytes % (A) 4 %; Neutrophils # (A) 5.5 k/uL (1.3-7.7); Neutrophils % (A) 63 %; Platelet Count 199 k/uL (150-450); RDW 14.2 % (11.5-15.5); WBC 8.6 k/uL (3.8-10.6)
[2020-06-24 17:08] LABS: Potassium 4.5 mmol/L (3.5-5.1)
== END | disposition home or self-care (01) ==
LOC: LABPAT 14:51
PROVIDERS: ATTEND Surgery
DX: Z01.818 Encounter for other preprocedural examination (principal); L97.302 Non-pressure chronic ulcer of unspecified ankle with fat layer exposed
CPT/HCPCS: 80051; 82565; 84520; 85025

== ENCOUNTER 2020-06-26 12:58 | Day surgery (SDC) | payer OTHER ==
[2020-06-25 12:10] VITALS: BMI 36.5
[~2020-06-26 12:58] MED LIST changes: -CLINDAMYCIN 900 MG in DEXTROSE 5% IN WATER 50 ML IVPB ONE; -DEXAMETHASONE SOD PHOSPHATE 10 MG/ML 1 ML VIAL IV ONE; +DEXAMETHASONE SOD PHOSPHATE 4 MG/ML 1 ML VIAL IV ONE; -HYDROmorphone 0.5 MG/0.5 ML SYRINGE IVP PRN; -KETAMINE 10 MG/ML 20 ML VIAL ONE; -MIDAZOLAM 2 MG/2 ML VIAL IV PRN; -MIDAZOLAM 2 MG/2 ML VIAL ONE; -PROPOFOL 10 MG/ML 20 ML VIAL IV ONE; +Pre Op ABX Message 1 EACH MISC MISCELLANE ONE; -diphenhydrAMINE 50 MG/ML 1 ML VIAL ONE; -fentaNYL (PF) 50 MCG/ML 2 ML AMP IV PRN; -fentaNYL (PF) 50 MCG/ML 2 ML AMP ONE
[2020-06-26 14:07] LABS: Glucose,Whole Blood 126 mg/dL (75-99)
[2020-06-26 14:08] VITALS: TEMP 97.2
[2020-06-26] MEDS ORDERED: ONDANSETRON 4 MG/2 ML VIAL ONE (14:09)
[2020-06-26] MEDS ORDERED: diphenhydrAMINE 50 MG/ML 1 ML VIAL ONE (14:18)
[2020-06-26] MEDS ORDERED: fentaNYL (PF) 50 MCG/ML 2 ML AMP ONE (14:18)
[2020-06-26] MEDS ORDERED: MIDAZOLAM 2 MG/2 ML VIAL ONE (14:18)
--- NOTE | 2020-06-26 15:11 | P.OP ---
Date of Procedure: 06/26/20 Description of Procedure: Preoperative diagnosis: Right lower extremity nonhealing wound Postoperative diagnosis: Same Procedure: Sharp excisional debridement to muscle right lower extremity wound, 4.6 x 2 x 0.4 cm Placement of growth factor with epi cord Application of wound VAC Surgeon: Denae Mallory D.O. EBL: [Less than 5 mL] IV fluids: [See anesthesia records] Urine output: [Not measured] Drains: []None Complications: []None immediately apparent Condition: []Stable to recovery Operative indication and findings: []The patient is a 59-year-old male with a nonhealing right lateral malleolus wound. He is undergone revascularization of his iliac artery and has continued to have slow progression of his healing. He was recommended to undergo sharp excisional debridement with placement of growth factors. He maintains a palpable pedal pulse. Risks and benefits were discussed. He seemingly understands and is willing to proceed as such Procedure in detail: [The patient was taken to the operating suite and placed in supine position. The right lower extremity was prepped and draped in usual sterile fashion. A preprocedure timeout was performed, all parties were in agreement. A curet was used and the wound was sharply debrided to the granulation tissues as well as to the muscle at the distal portion of the wound. It was debrided to healthy appearing granulation tissues. There is no evidence of. Drainage or discharge. The wound measurements are as above. A piece of epi cord placental growth factor was placed in the wound. A piece of Adaptic was placed and sutured in place with 3-0 chromic. Skin protectant was placed surrounding. A wound VAC was placed and set to good suction. The patient was sent to recovery in stable condition having tolerated the procedure well. Plan - Discharge Summary Discharge Rx Participant: No New Discharge Prescriptions: No Action Escitalopram [Lexapro] 20 mg PO DAILY Ibuprofen [Motrin] 600 mg PO BID diazePAM [Valium] 5 mg PO BID Metoprolol Succinate [Toprol XL] 25 mg PO DAILY lisinopriL 20 mg PO DAILY Folic Acid 1 mg PO DAILY Baclofen [Lioresal] 10 mg PO TID Vitamin E Acetate [Vitamin E] 200 unit PO DAILY Tamsulosin HCl [Flomax] 0.4 mg PO HS HYDROcodone/APAP 10-325MG [[place] 10-325] 1 tab PO QID Omeprazole 20 mg PO DAILY buPROPion SR [Wellbutrin SR] 100 mg PO BID #60 tablet.er Insulin NPH/Reg Insulin 70/30 [humuLIN 70/30 VIAL] 40 unit SQ BID Discharge Medication List Escitalopram [Lexapro] 20 mg PO DAILY 06/15/16 [History] Ibuprofen [Motrin] 600 mg PO BID 06/15/16 [History] diazePAM [Valium] 5 mg PO BID 06/15/16 [History] Baclofen [Lioresal] 10 mg PO TID 12/18/19 [History] Folic Acid 1 mg PO DAILY 12/18/19 [History] HYDROcodone/APAP 10-325MG [[place] 10-325] 1 tab PO QID 12/18/19 [History] Metoprolol Succinate [Toprol XL] 25 mg PO DAILY 12/18/19 [History] Tamsulosin HCl [Flomax] 0.4 mg PO HS 12/18/19 [History] Vitamin E Acetate [Vitamin E] 200 unit PO DAILY 12/18/19 [History] lisinopriL 20 mg PO DAILY 12/18/19 [History] Omeprazole 20 mg PO DAILY 12/19/19 [History] buPROPion SR [Wellbutrin SR] 100 mg PO BID #60 tablet.er 01/22/20 [Rx] Insulin NPH/Reg Insulin 70/30 [humuLIN 70/30 VIAL] 40 unit SQ BID 06/25/20 [History] Follow up Appointment(s)/Referral(s): Miah Peters DO [STAFF PHYSICIAN] - 2 Weeks Wound Healing,Center [NON-STAFF] - 1 Week Activity/Diet/Wound Care/Special Instructions: Resume previous activities. Leave the wound VAC in place for 1 week. Call home health nursing to change the outer portion of the dressing if necessary. Do not change under portion until evaluated by Dr. Roa or Dr Peters Discharge Disposition: HOME SELF-CARE
[2020-06-26 15:12] VITALS: RESP 20
[2020-06-26 15:12] LABS: Glucose,Whole Blood 120 mg/dL (75-99)
[2020-06-26 15:43] VITALS: BP 123/77; PULSE 63
== END 2020-06-26 15:41 | disposition home or self-care (01) ==
LOC: OR 12:58
PROVIDERS: ATTEND Surgery
DX: T81.89XA Other complications of procedures, not elsewhere classified, initial encounter (principal); E78.5 Hyperlipidemia, unspecified; F17.210 Nicotine dependence, cigarettes, uncomplicated; I12.9 Hypertensive chronic kidney disease with stage 1 through stage 4 chronic kidney disease, or unspecified chronic kidney disease; E11.22 Type 2 diabetes mellitus with diabetic chronic kidney disease; N18.9 Chronic kidney disease, unspecified; G82.20 Paraplegia, unspecified; Z98.890 Other specified postprocedural states; Z79.899 Other long term (current) drug therapy; Z79.1 Long term (current) use of non-steroidal anti-inflammatories (NSAID); Z79.4 Long term (current) use of insulin; Z79.891 Long term (current) use of opiate analgesic; Z88.5 Allergy status to narcotic agent; Z88.1 Allergy status to other antibiotic agents; Z88.8 Allergy status to other drugs, medicaments and biological substances; Z89.612 Acquired absence of left leg above knee; Z98.62 Peripheral vascular angioplasty status; Z98.1 Arthrodesis status; Z90.89 Acquired absence of other organs; Z80.9 Family history of malignant neoplasm, unspecified
CPT/HCPCS: 11043; 15271; C1713; J2250; J1200; J1100; J2405; J3010

== ENCOUNTER 2023-01-05 21:57 | Observation (INO) | payer OTHER ==
[2023-01-05] MEDS ORDERED: ASPIRIN 81 MG PO STA (23:00)
[2023-01-05 23:37] LABS: Basophils % (A) 0 %; Eosinophils # (A) 0.4 k/uL (0-0.7); Eosinophils % (A) 4 %; HCT 41.1 % (39.0-53.0); HGB 13.9 gm/dL (13.0-17.5); Lymphocytes % (A) 23 %; MCH 27.9 pg (25.0-35.0); MCHC 33.8 g/dL (31.0-37.0); MCV 82.7 fL (80.0-100.0); Mean Platelet Volume 8.6; Monocytes # (A) 0.4 k/uL (0-1.0); Monocytes % (A) 4 %; Neutrophils # (A) 5.9 k/uL (1.3-7.7); Neutrophils % (A) 67 %; Platelet Count 197 k/uL (150-450); RBC 4.97 m/uL (4.30-5.90); RDW 14.5 % (11.5-15.5); WBC 8.9 k/uL (3.8-10.6)
[2023-01-05 23:43] LABS: ALT 35 U/L (4-49); AST 27 U/L (17-59); African American GFR (CKD) >90 (>60 ml/min/1.73 sqM); Albumin 3.8 g/dL (3.5-5.0); Alkaline Phosphatase 235 U/L (38-126); Anion Gap 11 mmol/L; Blood Urea Nitrogen 20 mg/dL (9-20); Carbon Dioxide 27 mmol/L (22-30); Chloride 95 mmol/L (98-107); Glucose 363 mg/dL (74-99); Magnesium 1.8 mg/dL (1.6-2.3); Non-African American GFR(CKD) >90 (>60 ml/min/1.73 sqM); Potassium 3.4 mmol/L (3.5-5.1); Sodium 133 mmol/L (137-145); Total Bilirubin 0.6 mg/dL (0.2-1.3); Total Protein 6.3 g/dL (6.3-8.2)
[2023-01-05 23:54] LABS: Prothrombin Time 10.4 sec (9.0-12.0)
[2023-01-05 23:57] LABS: Partial Thromboplastin Time 19.5 sec (22.0-30.0)
[2023-01-06] MEDS ORDERED: ONDANSETRON 4 MG/2 ML VIAL IVP STA (00:15)
--- NOTE | 2023-01-06 00:27 | ED ---
Chest Pain HPI - General Chief Complaint: Chest Pain Stated Complaint: V/D/F Dehydration Time Seen by Provider: 01/05/23 22:31 Source: patient Mode of arrival: wheelchair Limitations: no limitations - History of Present Illness Initial Comments: Patient is a 62-year-old male presenting with chief complaint of chest pain. Patient states he has had chest pain on and off for the last week. Pain is located on the left side of the chest. He also admits to nausea and vomiting. Admits to smoking about a pack per day. Denies fevers or chills. Admits to recent cough and congestion. No abdominal pain. No palpitations. No numbness or tingling. - Related Data Home Medications Medication Instructions Recorded Confirmed Escitalopram [Lexapro] 20 mg PO DAILY 06/15/16 06/25/20 Ibuprofen [Motrin] 600 mg PO BID 06/15/16 06/25/20 diazePAM [Valium] 5 mg PO BID 06/15/16 06/25/20 Baclofen [Lioresal] 10 mg PO TID 12/18/19 06/25/20 Folic Acid 1 mg PO DAILY 12/18/19 06/25/20 HYDROcodone/APAP 10-325MG [[place] 1 tab PO QID 12/18/19 06/25/20 10-325] Metoprolol Succinate [Toprol XL] 25 mg PO DAILY 12/18/19 06/25/20 Tamsulosin HCl [Flomax] 0.4 mg PO HS 12/18/19 06/25/20 Vitamin E (Dl,Tocopheryl Acet) 200 unit PO DAILY 12/18/19 06/25/20 [Vitamin E] lisinopriL 20 mg PO DAILY 12/18/19 06/25/20 Omeprazole 20 mg PO DAILY 12/19/19 06/25/20 Insulin NPH/Reg Insulin 70/30 40 unit SQ BID 06/25/20 06/25/20 [humuLIN 70/30 VIAL] Previous Rx's Medication Instructions Recorded buPROPion SR [Wellbutrin SR] 100 mg PO BID #60 tablet.er 01/22/20 Allergies Allergy/AdvReac Type Severity Reaction Status Date / Time cephalexin [From Keflex] Allergy Unknown Verified 06/26/20 13:51 levofloxacin [From Levaquin] Allergy Nausea & Verified 11/11/20 13:51 Vomiting,headache codeine AdvReac sleepy Verified 06/26/20 13:51 morphine AdvReac Rash/Hives Verified 06/26/20 13:51 olmesartan [From Benicar] AdvReac blacks out Verified 06/26/20 13:51 Review of Systems ROS Statement: Those systems with pertinent positive or pertinent negative responses have been documented in the HPI. ROS Other: All systems not noted in ROS Statement are negative. EKG Findings - EKG Comments: EKG Findings:: EKG interpreted by me. EKG appears consistent with sinus rhythm with sinus arrhythmia, despite automatically generated finding of atrial fibrillation. Ventricular rate 93. GA interval undeterminable. QRS 81. QT 378. QTC 429. New T-wave inversions in leads III and aVF Past Medical History Past Medical History: Diabetes Mellitus, Hyperlipidemia, Hypertension, Musculoskeletal Disorder, Renal Disease Additional Past Medical History / Comment(s): paraplegia 2002 History of Any Multi-Drug Resistant Organisms: MRSA Date of last positivie culture/infection: 2015 MDRO Source:: L Ankle Past Surgical History: Back Surgery Additional Past Surgical History / Comment(s): Colonoscopy, left leg above the k nee amputation Past Anesthesia/Blood Transfusion Reactions: No Reported Reaction Past Psychological History: No Psychological Hx Reported Smoking Status: Current every day smoker Past Alcohol Use History: None Reported Past Drug Use History: None Reported - Past Family History Father Family Medical History: Cancer Additional Family Medical History / Comment(s): Father in his 70s from co oralia cancer. Mother Family Medical History: Cancer, Deep Vein Thrombosis (DVT) Additional Family Medical History / Comment(s): Mother in her 70s from brain cancer. Sister(s) Family Medical History: Cancer Additional Family Medical History / Comment(s): Patient has 2 sisters and both Ativan and breast cancer. Brother(s) Additional Family Medical History / Comment(s): Patient has 2 brothers with no major medical problems. Patient has 5 children with no major medical problems. General Exam Limitations: no limitations General appearance: alert, in no apparent distress Head exam: Present: atraumatic, normocephalic, normal inspection Eye exam: Present: normal appearance, EOMI. Absent: scleral icterus, periorbital swelling Neck exam: Present: normal inspection, full ROM Respiratory exam: Present: normal lung sounds bilaterally. Absent: respiratory distress, wheezes, rales, rhonchi, stridor Cardiovascular Exam: Present: regular rate, normal rhythm, normal heart sounds. Absent: systolic murmur, diastolic murmur, rubs, gallop, clicks GI/Abdominal exam: Present: soft. Absent: distended, tenderness, guarding, rebound, rigid Neurological exam: Present: alert, oriented X3, CN II-XII intact Psychiatric exam: Present: normal affect, normal mood Skin exam: Present: warm, dry, intact, normal color. Absent: rash Course Vital Signs 01/05/23 01/06/23 01/06/23 22:21 00:08 01:05 Temperature 97.8 F Pulse Rate 85 89 78 Respiratory 16 18 18 Rate Blood Pressure 127/82 145/95 124/73 O2 Sat by Pulse 99 96 98 Oximetry 01/06/23 03:00 Temperature Pulse Rate 73 Respiratory 16 Rate Blood Pressure 133/84 O2 Sat by Pulse 95 Oximetry Chest Pain MDM - MDM Was pt. sent in by a medical professional or institution (Dr. PA, PROJECT FINANCE ANALYST, urgent care, hospital, or longterm...) When possible be specific @ -No Did you speak to anyone other than the patient for history (EMS, parent, family, police, friend...)? What history was obtained from this source @ -No Did you review nursing and triage notes (agree or disagree)? Why? @ -I reviewed and agree with nursing and triage notes Were old charts reviewed (outside hosp., previous admission, EMS record, old EKG, old radiological studies, urgent care reports/EKG's, longterm records)? Report findings @ -No old charts were reviewed Differential Diagnosis (chest pain, altered mental status, abdominal pain women, abdominal pain men, vaginal bleeding, weakness, fever, dyspnea, syncope, headache, dizziness, GI bleed, back pain, seizure, CVA, palpatations, mental health, musculoskeletal)? @ -MDM Differential Chest Pain: Stable Angina, Unstable Angina, STEMI, NSTEMI Aortic Dissection, Pneumothorax, Musculoskeletal, Esophageal Spasm GERD, Cholecystitis, Pancreatitis, Zoster This is not meant to be an all-inclusive list. EKG interpreted by me (3pts min.). @ -As above X-rays interpreted by me (1pt min.). @ -Chest x-ray shows no acute process CT interpreted by me (1pt min.). @ -None done U/S interpreted by me (1pt. min.). @ -None done What testing was considered but not performed or refused? (CT, X-rays, U/S, labs)? Why? @ -None What meds were considered but not given or refused? Why? @ -None Did you discuss the management of the patient with other professionals (professionals i.e. DrTriston, PA, PROJECT FINANCE ANALYST, lab, RT, psych nurse, child protective services social worker, groundskeeping maintenance worker, teacher, ambulance officer, returned case inspector)? Give summary @ -My attending discussed with Dr. Finch who accepted admission Was smoking cessation discussed for >3mins.? @ -No Was critical care preformed (if so, how long)? @ -No Were there social determinants of health that impacted care today? How? (Homelessness, low income, unemployed, alcoholism, drug addiction, transportat ion, low edu. Level, literacy, decrease access to med. care, usp, rehab)? @ -No Was there de-escalation of care discussed even if they declined (Discuss DNR or withdrawal of care, Hospice)? DNR status @ -No What co-morbidities impacted this encounter? (DM, HTN, Smoking, COPD, CAD, Cancer, CVA, ARF, Chemo, Hep., AIDS, mental health diagnosis, sleep apnea, morbid obesity)? @ -Diabetes, hypertension, hyperlipidemia Was patient admitted / discharged? Hospital course, mention meds given and route, prescriptions, significant lab abnormalities, going to OR and other pertinent info. @ -Is a 62-year-old male presents with chief complaint of chest pain that has been ongoing for the last week. Also admits to nausea and vomiting. On physical examination heart and lungs are clear to auscultation. Lab work shows no leukocytosis or anemia. EKG shows some new T-wave inversions in leads I I I and aVF. Troponin is 0.027. Patient is negative for influenza, RSV, Covid, group A strep. Chest x-ray shows no acute process. Glucose is 363. Patient will be admitted for observation and evaluation by cardiology. My attending spoke with [facility] provider on-call. Follow-up with PCP. Report back to ER with any new or worsening symptoms. Discussed return parameters and answered all questions. Patient conveyed verbal understanding and agreed to the plan. I discussed this case in detail with my attending Dr. Jackson Undiagnosed new problem with uncertain prognosis? @ -No Drug Therapy requiring intensive monitoring for toxicity (Heparin, Nitro, Insulin, Cardizem)? @ -No Were any procedures done? @ -No Diagnosis/symptom? @ -Chest pain Acute, or Chronic, or Acute on Chronic? @ -Acute Uncomplicated (without systemic symptoms) or Complicated (systemic symptoms)? @ -complicated Side effects of treatment? @ -No Exacerbation, Progression, or Severe Exacerbation? @ -No Poses a threat to life or bodily function? How? (Chest pain, USA, NV, pneumonia, PE, COPD, DKA, ARF, appy, cholecystitis, CVA, Diverticulitis, Homicidal, Suicidal, threat to staff... and all critical care pts) @ -yes Disposition Clinical Impression: Chest pain Disposition: ADMITTED IP TO THIS HOSP Condition: Fair Time of Disposition: 02:36
--- NOTE | 2023-01-06 01:25 | XR ---
EXAM: XR Chest, 2 Views CLINICAL HISTORY: ITS.REASON XR Reason: Chest Pain TECHNIQUE: Frontal and lateral views of the chest. COMPARISON: No relevant prior studies available. FINDINGS: Lungs: Unremarkable. No consolidation. Pleural space: Unremarkable. No pneumothorax. Heart: Unremarkable. No cardiomegaly. Mediastinum: Unremarkable. Bones/joints: Degenerative changes of the spine. IMPRESSION: No evidence of acute cardiopulmonary disease.
[2023-01-06] MEDS ORDERED: NALOXONE 0.4 MG/ML 1 ML VIAL IV PRN (02:35)
[2023-01-06] MEDS ORDERED: SODIUM CHLORIDE 0.9% 1,000 ML IV SCH (02:45)
[2023-01-06 02:55] LABS: Appearance,Urine Clear (Clear); Bilirubin,Urine Negative (Negative); Blood,Urine Negative (Negative); Color,Urine Yellow; Glucose,Urine (UA) 4+ (Negative); Ketones,Urine Trace (Negative); Leukocyte Esterase,Urine Negative (Negative); Nitrite,Urine Negative (Negative); PH, Urine 6.5 (5.0-8.0); Protein,Urine Negative (Negative); Specific Gravity,Urine 1.015 (1.001-1.035)
[2023-01-06 07:23] LABS: Glucose,Whole Blood 267 mg/dL (70-110)
[2023-01-06] MEDS ORDERED: REGADENOSON 0.4 MG/5 ML SYRINGE IV PRN (07:50)
[2023-01-06] MEDS ORDERED: AMINOPHYLLINE 500 MG/20 ML VIAL IV PRN (07:50)
[2023-01-06] MEDS ORDERED: POTASSIUM CHLORIDE ER 20 MEQ TAB.ER PO STA (07:50)
[2023-01-06] MEDS ORDERED: CAFFEINE CITRATE 60 MG/3 ML VIAL IV PRN (07:50)
--- NOTE | 2023-01-06 08:51 | P.CRDCN ---
History of Present Illness History of present illness: HISTORY OF PRESENT ILLNESS: This is a 62-year-old male with a past medical history significant for hypertension, diabetes, depression, and left AKA.. Patient does not follow with a double back operator. We have been asked to see the patient in consultation for chest pain. Patient examined at the bedside. Patient states yesterday he had developed chest pain. He states the pain went all the way across his chest. He states the pain was not worse with deep inspiration or with movement. He states the pain was constant. At the time of examination this morning, the patient denies chest pain or pressure. The patient states his blood sugars have not been well controlled recently. His blood sugars were 363 upon arrival to the hospital. He is a one pack per day smoker. * EKG reveals sinus mechanism with no signs of acute ischemia. * Chest xray negative for acute process * Laboratory data: WBC 8.9. Hemoglobin 13.9. Platelet count 197. Sodium 133. Potassium 3.4. BUN 20. Creatinine 0.81. Troponin negative 3 * Current home cardiac medications include lisinopril 20 mg daily and metoprolol succinate 25 mg daily REVIEW OF SYSTEMS: At the time of my exam: CONSTITUTIONAL: Denies fever or chills. HEENT: Denies blurred vision, vision changes, or eye pain. Denies hemoptysis CARDIOVASCULAR: Denies chest pain. Denies orthopnea. Denies PND. Denies palpitations RESPIRATORY: Denies shortness of breath. GASTROINTESTINAL: Denies abdominal pain. Denies nausea or vomiting. HEMATOLOGIC: Denies bleeding disorders. GENITOURINARY: Denies any blood in urine. SKIN: Denies pruitis. Denies rash. PHYSICAL EXAM: VITAL SIGNS: Reviewed. GENERAL: Well-developed in no acute distress. HEENT: Head is normocephalic. Pupils are equal, round. Sclerae anicteric. Mucous membranes of the mouth are moist. Neck supple. No JVD or thyromegaly LUNGS: Respirations even and unlabored. Lungs essentially clear to auscultation bilaterally. HEART: Regular rate and rhythm. S1 and S2 heard. Systolic murmur noted ABDOMEN: Soft. Nondistended. Nontender. EXTREMITIES: Normal range of motion. No clubbing or cyanosis. Peripheral p ulses intact. Left AKA noted NEUROLOGIC: Awake and alert. Oriented x 3. ASSESSMENT: Chest pain, troponins negative 3 Hypertension Diabetes, uncontrolled History of left AKA Depression Hypokalemia PLAN: An acute coronary event has been ruled out Obtain 2-D echo to assess cardiac structure and function Resume home cardiac medications Add atorvastatin 20 mg at night Check lipid panel and hemoglobin A1c Replace potassium Patient to undergo Lexiscan stress test today If negative, the patient may be discharged home today from a cardiac standpoint Nurse practitioner note has been reviewed by physician. Signing provider agrees with the documented findings, assessment, and plan of care. Past Medical History Past Medical History: Diabetes Mellitus, Hyperlipidemia, Hypertension, Muscu loskeletal Disorder, Renal Disease Additional Past Medical History / Comment(s): paraplegia 2002 History of Any Multi-Drug Resistant Organisms: MRSA Date of last positivie culture/infection: 2015 MDRO Source:: L Ankle Past Surgical History: Back Surgery Additional Past Surgical History / Comment(s): Colonoscopy, left leg above the knee amputation Past Anesthesia/Blood Transfusion Reactions: No Reported Reaction Past Psychological History: No Psychological Hx Reported Smoking Status: Current every day smoker Past Alcohol Use History: None Reported Past Drug Use History: None Reported - Past Family History Father Family Medical History: Cancer Additional Family Medical History / Comment(s): Father in his 70s from colon cancer. Mother Family Medical History: Cancer, Deep Vein Thrombosis (DVT) Additional Family Medical History / Comment(s): Mother in her 70s from brain cancer. Sister(s) Family Medical History: Cancer Additional Family Medical History / Comment(s): Patient has 2 sisters and both Ativan and breast cancer. Brother(s) Additional Family Medical History / Comment(s): Patient has 2 brothers with no major medical problems. Patient has 5 children with no major medical problems. Medications and Allergies Home Medications Medication Instructions Recorded Confirmed Type Escitalopram [Lexapro] 20 mg PO DAILY 06/15/16 01/06/23 History Ibuprofen [Motrin] 600 mg PO BID PRN 06/15/16 01/06/23 History diazePAM [Valium] 5 mg PO BID PRN 06/15/16 01/06/23 History Baclofen [Lioresal] 10 mg PO TID 12/18/19 01/06/23 History HYDROcodone/APAP 10-325MG [[place] 1 tab PO QID 12/18/19 01/06/23 History 10-325] Metoprolol Succinate [Toprol XL] 25 mg PO DAILY 12/18/19 01/06/23 History Tamsulosin HCl [Flomax] 0.4 mg PO HS 12/18/19 01/06/23 History lisinopriL 20 mg PO DAILY 12/18/19 01/06/23 History Famotidine [Pepcid] 20 mg PO BID PRN 01/06/23 01/06/23 History Insulin NPL/Insulin Lispro 40 units SQ BID 01/06/23 01/06/23 History [humaLOG MIX 75-25 VIAL] buPROPion SR [Wellbutrin SR] 100 mg PO DAILY 01/06/23 01/06/23 History Allergies Allergy/AdvReac Type Severity Reaction Status Date / Time cephalexin [From Keflex] Allergy Unknown Verified 01/06/23 07:14 levofloxacin [From Levaquin] Allergy Nausea & Verified 01/06/23 07:14 Vomiting,headache morphine Allergy Rash/Hives Verified 01/06/23 07:14 codeine AdvReac sleepy Verified 01/06/23 07:14 olmesartan [From Benicar] AdvReac blacks out Verified 01/06/23 07:14 Physical Exam Vitals: Vital Signs Temp Pulse Pulse Resp BP BP Pulse Ox 01/06/23 04:02 97.8 F 61 18 143/75 96 01/06/23 03:00 73 16 133/84 95 01/06/23 01:05 78 18 124/73 98 01/06/23 00:08 89 18 145/95 96 01/05/23 22:21 97.8 F 85 16 127/82 99 Intake and Output 01/05/23 01/06/23 01/06/23 22:59 06:59 14:59 Other: # Voids 1 Weight 113.398 kg 113.398 kg Results 01/05/23 23:20 01/05/23 23:20 Cardiac Enzymes 01/05/23 01/05/23 01/06/23 Range/Units 23:20 23:20 03:11 AST 27 (17-59) U/L Troponin I 0.027 0.028 (0.000-0.034) ng/mL 01/06/23 Range/Units 05:10 AST (17-59) U/L Troponin I 0.031 (0.000-0.034) ng/mL Coagulation 01/05/23 Range/Units 23:20 PT 10.4 (9.0-12.0) sec APTT 19.5 L (22.0-30.0) sec CBC 01/05/23 Range/Units 23:20 WBC 8.9 (3.8-10.6) k/uL RBC 4.97 (4.30-5.90) m/uL Hgb 13.9 (13.0-17.5) gm/dL Hct 41.1 (39.0-53.0) % Plt Count 197 (150-450) k/uL Comprehensive Metabolic Panel 01/05/23 Range/Units 23:20 Sodium 133 L (137-145) mmol/L Potassium 3.4 L (3.5-5.1) mmol/L Chloride 95 L (98-107) mmol/L Carbon Dioxide 27 (22-30) mmol/L BUN 20 (9-20) mg/dL Creatinine 0.81 (0.66-1.25) mg/dL Glucose 363 H (74-99) mg/dL Calcium 9.0 (8.4-10.2) mg/dL AST 27 (17-59) U/L ALT 35 (4-49) U/L Alkaline Phosphatase 235 H (38-126) U/L Total Protein 6.3 (6.3-8.2) g/dL Albumin 3.8 (3.5-5.0) g/dL Current Medications Generic Name Dose Route Start Last Admin Trade Name Freq PRN Reason Stop Dose Admin Sodium Chloride 1,000 mls @ 75 mls/hr 01/06/23 02:45 01/06/23 04:30 Saline 0.9% IV Not Given .[id number] GWEN Naloxone HCl 0.2 mg 01/06/23 02:35 Naloxone 0.4 Mg/Ml 1 Ml Vial IV Q2M PRN Opioid Reversal Intake and Output 01/05/23 01/06/23 01/06/23 22:59 06:59 14:59 Other: # Voids 1 Weight 113.398 kg 113.398 kg 01/05/23 23:20 01/05/23 23:20
[2023-01-06] MEDS ORDERED: METOPROLOL SUCCINATE (ER) 25 MG TAB.ER.24H PO SCH (09:00)
[2023-01-06] MEDS ORDERED: lisinopriL 20 MG TAB PO SCH (09:00)
[2023-01-06] MEDS ORDERED: diazePAM 5 MG TAB PO PRN (09:18)
[2023-01-06] MEDS ORDERED: FAMOTIDINE 20 MG TAB PO PRN (09:18)
[2023-01-06] MEDS ORDERED: DEXTROSE 50% SYRINGE 50 ML IVP PRN ×2 (09:19)
[2023-01-06] MEDS ORDERED: INSULN ASP PRT/INSULIN ASPART 100 UNIT/ML 10 ML VIAL SQ SCH (09:30)
[2023-01-06] MEDS ORDERED: buPROPion SR 100 MG TABLET.ER PO SCH (09:30)
[2023-01-06] MEDS ORDERED: ESCITALOPRAM 20 MG TAB PO SCH (09:30)
--- NOTE | 2023-01-06 11:54 | CA ---
Transthoracic Echo Report Name: Pancho Leslie Age: 62 Gender: M : 1960 Exam Date: 01/06/2023 10:19 Exam Location: [facility] Ht (in): 76 Wt (lb): 250 Ordering Physician: Evy Tobar Attending/Referring Phys: [id number], Amadou Obstetrics Tech Zoie Gonzalez RDCS Procedure CPT: Indications: LV function Cardiac Hx: Technical Quality: Fair Contrast 1: Total Dose (mL): Contrast 2: Total Dose (mL): MEASUREMENTS (Male / Female) Normal Values 2D ECHO LV Diastolic Diameter PLAX 4.2 cm 4.2 - 5.9 / 3.9 - 5.3 cm LV Systolic Diameter PLAX 2.7 cm IVS Diastolic Thickness 1.7 cm 0.6 - 1.0 / 0.6 - 0.9 cm LVPW Diastolic Thickness 1.5 cm 0.6 - 1.0 / 0.6 - 0.9 cm LV Relative Wall Thickness 0.7 RV Internal Dim ED PLAX 4.1 cm LVOT Diameter 2.7 cm LA Systolic Diameter LX 3.7 cm 3.0 - 4.0 / 2.7 - 3.8 cm LV Diastolic Volume MOD BP 68.8 cm??? 67 - 155 / 56 - 104 cm??? LV Systolic Volume MOD BP 33.5 cm??? 22 - 58 / 19 - 49 cm??? LV Ejection Fraction MOD BP 51.4 % >= 55 % LV Diastolic Volume MOD 4C 90.4 cm??? LV Systolic Volume MOD 4C 36.4 cm??? LV Ejection Fraction MOD 4C 59.8 % LV Diastolic Length 4C 7.7 cm LV Systolic Length 4C 6.5 cm LV Diastolic Volume MOD 2C 52.0 cm??? LV Systolic Volume MOD 2C 31.9 cm??? LV Ejection Fraction MOD 2C 38.7 % LV Diastolic Length 2C 8.2 cm LV Systolic Length 2C 6.6 cm LA Volume 51.2 cm??? 18 - 58 / 22 - 52 cm??? M-MODE Aortic Root Diameter MM 3.1 cm AV Cusp Separation MM 1.8 cm DOPPLER AV Peak Velocity 231.5 cm/s AV Peak Gradient 21.4 mmHg AV Mean Velocity 137.3 cm/s AV Mean Gradient 9.5 mmHg AV Velocity Time Integral 37.8 cm LVOT Peak Velocity 139.2 cm/s LVOT Peak Gradient 7.7 mmHg AV Area Cont Eq pk 3.5 cm??? MV Area PHT 3.5 cm??? Mitral E Point Velocity 86.0 cm/s Mitral A Point Velocity 89.7 cm/s Mitral E to A Ratio 1.0 MV Deceleration Time 217.5 ms MV E' Velocity 3.8 cm/s Mitral E to MV E' Ratio 22.7 TR Peak Velocity 270.7 cm/s TR Peak Gradient 29.3 mmHg Right Ventricular Systolic Press 34.3 mmHg FINDINGS Left Ventricle Left ventricular ejection fraction is estimated at 55-60 %. Moderately increased septal wall thickness. Mildly decreased left ventricular ejection fraction. Sygmoid septum Right Ventricle Moderate right ventricular dilatation. Mild pulmonary hypertension. Right Atrium Normal right atrial size. Left Atrium Normal left atrial size. Mitral Valve Structurally normal mitral valve. No mitral stenosis, regurgitation or prolapse. Aortic Valve Trileaflet aortic valve. Mild aortic stenosis with a peak gradient of 21 mmHg and a mean gradient of 10 mmHg. Tricuspid Valve Structurally normal tricuspid valve. Mild tricuspid regurgitation. Pulmonic Valve Structurally normal pulmonic valve. Trace pulmonic regurgitation. Pericardium Normal pericardium. No pericardial effusion. Aorta Normal size aortic root and proximal ascending aorta. CONCLUSIONS Normal LV size and systolic function with mild concentric LVH. Mild right ventricular prominence. Aortic valve sclerosis with probably mild stenosis. Minimal mitral and tricuspid regurgitation. No pulmonary hypertension. No pericardial effusion Previewed by: Dr. Kendall Angel MD (Electronically Signed) Final Date: 06 Jan 2023 11:53
--- NOTE | 2023-01-06 12:14 | CA ---
Lexiscan Nuclear Stress Test Report Name: Pancho Leslie Exam Date: 01/06/2023 10:03 Exam Location: [facility] Ht (in): 76 Wt (lb): 250 BSA: 2.44 Ordering Phys: Evy Tobar Referring Phys: [id number], Technologist: Sabas Zambrano Age: 62 Gender: M : 1960 Procedure CPT: Indications: Reflex order-Stress test ICD-10 Codes: Patient History: CHEST PAIN, DIFFICULTY IN BREATHING, HTN, DIABETES, CURRENT SMOKER 1 PPD X 50 YEARS Medications: Meds past 24 hrs: Pretest Chest Pain: STRESS TEST Lexiscan Protocol Exercise Duration (min:sec): 01:[address] Depressions (mm): Angina Score: [place] Score: Resting HR (bpm): 78 Peak HR (bpm): 115 Resting BP (mmHg): 138 / 81 Peak BP (mmHg): 138 / 81 MPHR: 159 Target HR: 135 % MPHR: 72 METS: 1.0 Total Dose: Peak Dose: Atropine: Double Product: 52338 BP Response: Stress Termination: INFUSION COMPLETE Stress Symptoms: NAUSEA,CHEST TIGHTNESS Stress Summary: ECG ANALYSIS Resting ECG: Stress ECG: CONCLUSIONS Baseline EKG revealed sinus mechanism with isolated PACs and PVCs and LVH by voltage criteria. With Lexiscan administration the heart rate changed from 82-10 6 bpm and the blood pressure changed from 138/81-115/59. Patient had transient chest tightness and nausea. Short run of PAT was noted. EKG did not reveal any significant ST-T changes although there are minor resting changes to begin with. By EKG criteria this is considered is a unremarkable Lexiscan stress test with minor resting EKG changes. Short run of PAT was noted and there were isolated PACs and PVCs. The nuclear scan results which are more pertinent will be reported with radiologist Dr. Kendall Angel MD (Electronically Signed) Final Date: 06 Jan 2023 12:13
--- NOTE | 2023-01-06 12:20 | NM ---
EXAMINATION TYPE: NM stress lexiscan cardiolite DATE OF EXAM: 01/06/2023 COMPARISON: NONE CLINICAL INDICATION: Male, 62 years old with history of CP; TECHNIQUE: After the intravenous administration of 25.8 mCi Tc 99m Sestamibi - Cardiolite resting SP ECT images acquired 50 minutes post injection. The patient received 0.4mg Lexiscan, 10.2 mCi Tc 99m Sestamibi - Stress images obtained [address] injection FINDINGS: Review of stress and rest SPECT images demonstrates no distinct perfusion abnormality. Gated analysi s shows normal wall motion with an estimated left ventricular ejection fraction of 52%. IMPRESSION: No scintigraphic evidence for reversible ischemia.
[2023-01-06] MEDS ORDERED: INSULIN ASPART (NovoLOG) 100 UNIT/ML VIAL SQ SCH (12:30)
[2023-01-06 12:31] LABS: Glucose,Whole Blood 319 mg/dL (70-110)
[2023-01-06] MEDS ORDERED: HYDROcodone/APAP 10-325MG 1 EACH TAB PO SCH (13:00)
--- NOTE | 2023-01-06 13:23 | HP ---
HISTORY AND PHYSICAL This is a combined history and physical and discharge summary. CHIEF COMPLAINT: Chest pain. HISTORY OF PRESENT ILLNESS: This is a 62-year-old gentleman with a past medical history of multiple medical problems including diabetes mellitus, hypertension, hyperlipidemia, was admitted with chest pain, pain is felt in the anterior part of chest. Troponins are negative. Cardiology performed a cardiac stress test which was showing no reversible ischemia. At this time, the patient will be discharged home with further plans to follow up in the outpatient setting. The blood sugar was found to be elevated, apparently the patient is not checking the blood sugar at home. I recommend strongly that the patient check Accu-Cheks a.c. and h.s. and results to be brought to Dr. Mane's office for further evaluation and treatment. PAST MEDICAL HISTORY: Reviewed include diabetes mellitus, hypertension, hyperlipidemia, rest of the history and rest of the chart is also reviewed. HOME MEDICATIONS: Reviewed include Pepcid, doses and rest of medications noted. ALLERGIES: Reviewed include Keflex, rest of allergies noted. FAMILY HISTORY: History of colon cancer in the family. SOCIAL HISTORY: History of smoking, continued ongoing. REVIEW OF SYSTEMS: A 14-point review is negative except as mentioned earlier. PHYSICAL EXAMINATION: VITAL SIGNS: Pulse is 79, blood pressure 130/70, and respirations 16. HEENT: Conjunctivae normal. NECK: No jugular venous distention. CARDIOVASCULAR: S1, S2 muffled. RESPIRATIONS: Diminished at the bases, a few scattered rhonchi and crackles. ABDOMEN: Soft, obese. LEGS: No edema, no swelling. NERVOUS SYSTEM: Paraplegia. LABORATORY DATA: Reviewed. ASSESSMENT: 1. Chest pain, possibly nonspecific, negative stress test. 2. Diabetes mellitus type 2, uncontrolled with hyperglycemia. 3. Hypertension. 4. Hyperlipidemia. 5. History of paraplegia. RECOMMENDATIONS AND DISCUSSION: This 62-year-old gentleman admitted with multiple complex medical issues. At this time, I would recommend the patient be discharged home, cardiac diet, control the blood sugars. Accu-Cheks a.c. and h.s. and results to Dr. Mane's office. Follow up with Cardiology as recommended. Add Lipitor to the current regimen. Resume the rest of the home medications. Once again, the patient was discharged in stable condition. Guarded prognosis. MMODL / IJN: [id number] /
[2023-01-06 14:34] VITALS: BP 82/59; PULSE 87; RESP 16; TEMP 97.6
[2023-01-06 16:03] LABS: Chol/HDL Ratio 7.11 Ratio; LDL Cholesterol,Calculated 128.3 mg/dL (0.0-131.0)
[2023-01-06] MEDS ORDERED: ATORVASTATIN 20 MG TAB PO SCH (21:00)
[2023-01-06] MEDS ORDERED: TAMSULOSIN 0.4 MG CAP.ER.24H PO SCH (21:00)
== END 2023-01-06 15:53 | disposition home or self-care (01) ==
LOC: EC 21:57 → 6NMEDSUR 01-06 02:36
PROVIDERS: ADMIT Internal Medicine; ATTEND Internal Medicine
DX: R07.89 Other chest pain (principal); E11.65 Type 2 diabetes mellitus with hyperglycemia; F17.200 Nicotine dependence, unspecified, uncomplicated; E78.5 Hyperlipidemia, unspecified; I10 Essential (primary) hypertension; G82.20 Paraplegia, unspecified; I07.1 Rheumatic tricuspid insufficiency; I37.1 Nonrheumatic pulmonary valve insufficiency; I35.0 Nonrheumatic aortic (valve) stenosis; F32.A Depression, unspecified; E87.6 Hypokalemia; I27.20 Pulmonary hypertension, unspecified; Z79.899 Other long term (current) drug therapy; Z79.4 Long term (current) use of insulin; Z88.1 Allergy status to other antibiotic agents; Z88.5 Allergy status to narcotic agent; Z88.8 Allergy status to other drugs, medicaments and biological substances; Z86.14 Personal history of Methicillin resistant Staphylococcus aureus infection; Z89.612 Acquired absence of left leg above knee; Z80.0 Family history of malignant neoplasm of digestive organs; Z63.4 Disappearance and death of family member; Z80.8 Family history of malignant neoplasm of other organs or systems; Z83.2 Family history of diseases of the blood and blood-forming organs and certain disorders involving the immune mechanism; Z80.3 Family history of malignant neoplasm of breast; Z20.822 Contact with and (suspected) exposure to COVID-19
CPT/HCPCS: 36415; 71046; 78452; 80053; 80061; 81003; 83036; 83735; 84484; 85025; 85610; 85730; 87636; 87651; 93005; 93017; 93306; 96374; 99285

== ENCOUNTER 2023-04-14 10:43 | Inpatient (IN) | payer OTHER ==
[2023-04-14] MEDS ORDERED: SODIUM CHLORIDE 0.9% 1,000 ML IV STA (11:33)
[2023-04-14] MEDS ORDERED: SODIUM CHLORIDE 0.9% 500 ML 500 ML IV ONE ×3 (11:39→15:01)
[2023-04-14] MEDS ORDERED: VANCOMYCIN IV PER PHARMACY 1 EACH MISC MISCELLANE PRN (11:39)
[2023-04-14] MEDS ORDERED: VANCOMYCIN 1,500 MG in SODIUM CHLORIDE 0.9% 500 ML 500 ML IVPB STA (11:43)
[2023-04-14] MEDS ORDERED: ONDANSETRON 4 MG/2 ML VIAL IVP STA (11:43)
--- NOTE | 2023-04-14 11:45 | ED ---
General Adult HPI - General Chief complaint: Nausea/Vomiting/Diarrhea Stated complaint: L ARM BLISTER, VOMITING, STOMACH FLU Time Seen by Provider: 04/14/23 11:20 Source: patient, RN notes reviewed, old records reviewed Mode of arrival: wheelchair Limitations: physical limitation - History of Present Illness Initial comments: 62-year-old male presents for evaluation of pain and swelling to the left forearm. Patient was diagnosed with abscess and cellulitis on Wednesday which was 5 days prior. He was started on oral antibiotics but was unable to tolerate these secondary to nausea and vomiting. The patient had gone to [facility] on Wednesday which was 2 days ago and received IV antibiotics and was admitted by left his medical advice because there was no bed availability and the patient was going to stay in the emergency department. The patient's denies fever but has had persistent nausea vomiting and diarrhea over the past 24-48 hours. He's had no abdominal pain. He states that the abscess on his left forearm is draining purulent material and he is currently not taking any antibiotics. - Related Data Home Medications Medication Instructions Recorded Confirmed Escitalopram [Lexapro] 20 mg PO DAILY 06/15/16 01/06/23 Ibuprofen [Motrin] 600 mg PO BID PRN 06/15/16 01/06/23 diazePAM [Valium] 5 mg PO BID PRN 06/15/16 01/06/23 Baclofen [Lioresal] 10 mg PO TID 12/18/19 01/06/23 HYDROcodone/APAP 10-325MG [[place] 1 tab PO QID 12/18/19 01/06/23 10-325] Metoprolol Succinate [Toprol XL] 25 mg PO DAILY 12/18/19 01/06/23 Tamsulosin HCl [Flomax] 0.4 mg PO HS 12/18/19 01/06/23 lisinopriL 20 mg PO DAILY 12/18/19 01/06/23 Famotidine [Pepcid] 20 mg PO BID PRN 01/06/23 01/06/23 buPROPion SR [Wellbutrin SR] 100 mg PO DAILY 01/06/23 01/06/23 Previous Rx's Medication Instructions Recorded Atorvastatin [Lipitor] 10 mg PO HS #30 tab 01/06/23 Insulin NPL/Insulin Lispro 50 units SQ BID #0 05/24/23 [humaLOG MIX 75-25 VIAL] Allergies Allergy/AdvReac Type Severity Reaction Status Date / Time cephalexin [From Keflex] Allergy Unknown Verified 04/14/23 11:17 levofloxacin [From Levaquin] Allergy Nausea & Verified 04/14/23 11:17 Vomiting,headache morphine Allergy Rash/Hives Verified 04/14/23 11:17 codeine AdvReac sleepy Verified 04/14/23 11:17 olmesartan [From Benicar] AdvReac blacks out Verified 04/14/23 11:17 Review of Systems ROS Statement: Those systems with pertinent positive or pertinent negative responses have been documented in the HPI. ROS Other: All systems not noted in ROS Statement are negative. Past Medical History Past Medical History: Diabetes Mellitus, Hyperlipidemia, Hypertension, Musculoskeletal Disorder, Renal Disease Additional Past Medical History / Comment(s): paraplegia 2002 History of Any Multi-Drug Resistant Organisms: MRSA Date of last positivie culture/infection: 2016 MDRO Source:: L Ankle Past Surgical History: Back Surgery Additional Past Surgical History / Comment(s): Colonoscopy, left leg above the knee amputation Past Anesthesia/Blood Transfusion Reactions: No Reported Reaction Past Psychological History: No Psychological Hx Reported Smoking Status: Current every day smoker Past Alcohol Use History: None Reported Past Drug Use History: None Reported - Past Family History Father Family Medical History: Cancer Additional Family Medical History / Comment(s): Father in his 70s from colon cancer. Mother Family Medical History: Cancer, Deep Vein Thrombosis (DVT) Additional Family Medical History / Comment(s): Mother in her 70s from brain cancer. Sister(s) Family Medical History: Cancer Additional Family Medical History / Comment(s): Patient has 2 sisters and both Ativan and breast cancer. Brother(s) Additional Family Medical History / Comment(s): Patient has 2 brothers with no major medical problems. Patient has 5 children with no major medical problems. General Exam Limitations: physical limitation General appearance: alert, in distress Head exam: Present: atraumatic, normocephalic Eye exam: Present: normal appearance, PERRL ENT exam: Present: mucous membranes dry Respiratory exam: Present: normal lung sounds bilaterally. Absent: respiratory distress, wheezes Cardiovascular Exam: Present: tachycardia, irregular rhythm GI/Abdominal exam: Present: soft. Absent: distended, tenderness, guarding, re bound Extremities exam: Present: other (Left [id number] amputation) Neurological exam: Present: alert, oriented X3. Absent: motor sensory deficit Skin exam: Present: warm, other (Draining abscess with cellulitis on the left proximal forearm) Course Vital Signs 04/14/23 04/14/23 04/14/23 11:13 12:03 12:47 Temperature 95.5 F L 96.7 F L Pulse Rate 126 H 140 H 137 H Respiratory 18 22 Rate Blood Pressure 84/72 96/62 80/61 O2 Sat by Pulse 99 98 Oximetry Medical Decision Making - Medical Decision Making Was pt. sent in by a medical professional or institution (, PA, HAND FUNNEL COATER, urgent care, hospital, or longterm...) When possible be specific @ -No Did you speak to anyone other than the patient for history (EMS, parent, family, police, friend...)? What history was obtained from this source @ -No Did you review nursing and triage notes (agree or disagree)? Why? @ -I reviewed and agree with nursing and triage notes Were old charts reviewed (outside hosp., previous admission, EMS record, old EKG, old radiological studies, urgent care reports/EKG's, longterm records)? Report findings @ -No old charts were reviewed Differential Diagnosis (chest pain, altered mental status, abdominal pain women, abdominal pain men, vaginal bleeding, weakness, fever, dyspnea, syncope, headache, dizziness, GI bleed, back pain, seizure, CVA, palpatations, mental health, musculoskeletal)? @ -Differential Abdominal Pain Men: Appendicitis, cholecystitis, diverticulosis, ischemic bowel, pancreatitis, hepatitis, UTI, gastroenteritis, AAA, incarcerated hernia, bowel obstruction, constipation, inflammatory bowel, hepatitis, peptic ulcer disease, splenic infarction, perforated viscus, testicular torsion, this is not meant to be an all-inclusive list EKG interpreted by me (3pts min.). @ Atrial fibrillation with a ventricular rate of 150 QRS duration 91, QTC 377 X-rays interpreted by me (1pt min.). @ -None done CT interpreted by me (1pt min.). @ -None done U/S interpreted by me (1pt. min.). @ -None done What testing was considered but not performed or refused? (CT, X-rays, U/S, labs)? Why? @ -None What meds were considered but not given or refused? Why? @ -None Did you discuss the management of the patient with other professionals (professionals i.e. , PA, HAND FUNNEL COATER, lab, RT, psych nurse, foster care social worker, family nurse practitioner, teacher, special officer automat, continuous pillowcase cutter)? Give summary @ -Dr. Mills Was smoking cessation discussed for >3mins.? @ -No Was critical care preformed (if so, how long)? @ -yes, 35 Were there social determinants of health that impacted care today? How? (Homelessness, low income, unemployed, alcoholism, drug addiction, transportation, low edu. Level, literacy, decrease access to med. care, retirement, rehab)? @ -No Was there de-escalation of care discussed even if they declined (Discuss DNR or withdrawal of care, Hospice)? DNR status @ -No What co-morbidities impacted this encounter? (DM, HTN, Smoking, COPD, CAD, Cancer, CVA, ARF, Chemo, Hep., AIDS, mental health diagnosis, sleep apnea, morbid obesity)? @ -Diabetes Was patient admitted / discharged? Hospital course, mention meds given and route, prescriptions, significant lab abnormalities, going to OR and other pertinent info. @ 62-year-old male presenting with left arm infection, nausea vomiting and diarrhea. Patient does have a draining abscess to the left arm with surrounding cellulitis. Additionally had significant vomiting and diarrhea over the past several days. He is volume depleted. Additionally he is in atrial fibrillation with RVR, likely secondary to sepsis and dehydration. He has a lactic acidosis as well as acute renal failure. He is given 2 L of normal saline in the emergency department. He is started on IV antibiotics and Cardizem in the emergency department. Admitted to internal medicine. Undiagnosed new problem with uncertain prognosis? @ -No Drug Therapy requiring intensive monitoring for toxicity (Heparin, Nitro, Insulin, Cardizem)? @ -No Were any procedures done? @ -No Diagnosis/symptom? @ -Left arm abscess and cellulitis, nausea vomiting, atrial fibrillation with RVR, sepsis Acute, or Chronic, or Acute on Chronic? @ Acute Uncomplicated (without systemic symptoms) or Complicated (systemic symptoms)? @ -default Side effects of treatment? @ -No Exacerbation, Progression, or Severe Exacerbation? @ -No Poses a threat to life or bodily function? How? (Chest pain, [place], [place], pneumonia, PE, COPD, DKA, ARF, appy, cholecystitis, CVA, Diverticulitis, Homicidal, Suicidal, threat to staff... and all critical care pts) @ Yes, sepsis, arrhythmia - Lab Data Result diagrams: 04/14/23 11:35 04/14/23 11:35 Lab Results 04/14/23 04/14/23 04/14/23 Range/Units 11:35 11:35 11:35 WBC 26.0 H (3.8-10.6) k/uL RBC 4.75 (4.30-5.90) m/uL Hgb 13.8 (13.0-17.5) gm/dL Hct 42.2 (39.0-53.0) % MCV 88.8 (80.0-100.0) fL MCH 28.9 (25.0-35.0) pg MCHC 32.6 (31.0-37.0) g/dL RDW 14.9 (11.5-15.5) % Plt Count 317 (150-450) k/uL MPV 8.8 Neutrophils % 92 % Lymphocytes % 4 % Monocytes % 3 % Eosinophils % 0 % Basophils % 0 % Neutrophils # 24.0 H (1.3-7.7) k/uL Lymphocytes # 1.0 (1.0-4.8) k/uL Monocytes # 0.7 (0-1.0) k/uL Eosinophils # 0.0 (0-0.7) k/uL Basophils # 0.0 (0-0.2) k/uL PT 10.2 (9.0-12.0) sec INR 1.0 (<1.2) APTT 22.6 (22.0-30.0) sec Sodium 133 L (137-145) mmol/L Potassium 3.7 (3.5-5.1) mmol/L Chloride 88 L (98-107) mmol/L Carbon Dioxide 12 L (22-30) mmol/L Anion Gap 33 mmol/L BUN 27 H (9-20) mg/dL Creatinine 1.66 H (0.66-1.25) mg/dL Est GFR (CKD-EPI)AfAm 51 (>60 ml/min/1.73 sqM) Est GFR (CKD-EPI)NonAf 44 (>60 ml/min/1.73 sqM) Glucose 475 H (74-99) mg/dL Plasma Lactic Acid Glenn (0.7-2.0) mmol/L Calcium 9.4 (8.4-10.2) mg/dL Total Bilirubin 0.8 (0.2-1.3) mg/dL AST 19 (17-59) U/L ALT 16 (4-49) U/L Alkaline Phosphatase 239 H (38-126) U/L Total Protein 6.4 (6.3-8.2) g/dL Albumin 3.6 (3.5-5.0) g/dL Amylase 60 (30-110) U/L Lipase 92 (23-300) U/L 04/14/23 Range/Units 11:35 WBC (3.8-10.6) k/uL RBC (4.30-5.90) m/uL Hgb (13.0-17.5) gm/dL Hct (39.0-53.0) % MCV (80.0-100.0) fL MCH (25.0-35.0) pg MCHC (31.0-37.0) g/dL RDW (11.5-15.5) % Plt Count (150-450) k/uL MPV Neutrophils % % Lymphocytes % % Monocytes % % Eosinophils % % Basophils % % Neutrophils # (1.3-7.7) k/uL Lymphocytes # (1.0-4.8) k/uL Monocytes # (0-1.0) k/uL Eosinophils # (0-0.7) k/uL Basophils # (0-0.2) k/uL PT (9.0-12.0) sec INR (<1.2) APTT (22.0-30.0) sec Sodium (137-145) mmol/L Potassium (3.5-5.1) mmol/L Chloride (98-107) mmol/L Carbon Dioxide (22-30) mmol/L Anion Gap mmol/L BUN (9-20) mg/dL Creatinine (0.66-1.25) mg/dL Est GFR (CKD-EPI)AfAm (>60 ml/min/1.73 sqM) Est GFR (CKD-EPI)NonAf (>60 ml/min/1.73 sqM) Glucose (74-99) mg/dL Plasma Lactic Acid Glenn 3.6 H* (0.7-2.0) mmol/L Calcium (8.4-10.2) mg/dL Total Bilirubin (0.2-1.3) mg/dL AST (17-59) U/L ALT (4-49) U/L Alkaline Phosphatase (38-126) U/L Total Protein (6.3-8.2) g/dL Albumin (3.5-5.0) g/dL Amylase (30-110) U/L Lipase (23-300) U/L Critical Care Time Critical Care Time: Yes Total Critical Care Time: 35 Disposition Clinical Impression: Dehydration, RAQUEL (acute kidney injury), Atrial fibrillation with rapid ventricular response, Cellulitis, Acidosis, metabolic Disposition: ADMITTED IP TO THIS HOSP Condition: Stable Is patient prescribed a controlled substance at d/c from ED?: No Referrals: Kendell Mane [Primary Care Provider] - 1-2 days Time of Disposition: 13:13
[2023-04-14] MEDS ORDERED: DILTIAZEM DRIP BOLUS FROM BAG 1 MG SOLN IV ONE (12:09)
[2023-04-14 12:31] LABS: Basophils % (A) 0 %; Eosinophils % (A) 0 %; HCT 42.2 % (39.0-53.0); HGB 13.8 gm/dL (13.0-17.5); Lymphocytes % (A) 4 %; MCH 28.9 pg (25.0-35.0); MCHC 32.6 g/dL (31.0-37.0); MCV 88.8 fL (80.0-100.0); Mean Platelet Volume 8.8; Monocytes # (A) 0.7 k/uL (0-1.0); Monocytes % (A) 3 %; Neutrophils % (A) 92 %; Platelet Count 317 k/uL (150-450); RBC 4.75 m/uL (4.30-5.90); RDW 14.9 % (11.5-15.5)
[2023-04-14 12:39] LABS: Partial Thromboplastin Time 22.6 sec (22.0-30.0); Prothrombin Time 10.2 sec (9.0-12.0)
[2023-04-14 12:44] LABS: ALT 16 U/L (4-49); AST 19 U/L (17-59); African American GFR (CKD) 51 (>60 ml/min/1.73 sqM); Albumin 3.6 g/dL (3.5-5.0); Alkaline Phosphatase 239 U/L (38-126); Amylase 60 U/L (30-110); Anion Gap 33 mmol/L; Blood Urea Nitrogen 27 mg/dL (9-20); Calcium 9.4 mg/dL (8.4-10.2); Carbon Dioxide 12 mmol/L (22-30); Chloride 88 mmol/L (98-107); Glucose 475 mg/dL (74-99); Lipase 92 U/L (23-300); Non-African American GFR(CKD) 44 (>60 ml/min/1.73 sqM); Potassium 3.7 mmol/L (3.5-5.1); Sodium 133 mmol/L (137-145); Total Bilirubin 0.8 mg/dL (0.2-1.3); Total Protein 6.4 g/dL (6.3-8.2)
[2023-04-14] MEDS: SODIUM CHLORIDE 0.9% 1,000 ML IV SCH ×2 (12:59→19:11)
[2023-04-14] MEDS: DILTIAZEM 125 MG in SODIUM CHLORIDE 0.9% 100 ML IV SCH (13:05)
[2023-04-14] MEDS ORDERED: ACETAMINOPHEN TAB 325 MG TAB PO PRN (13:08)
[2023-04-14] MEDS ORDERED: NALOXONE 0.4 MG/ML 1 ML VIAL IV PRN (13:08)
[2023-04-14] MEDS ORDERED: ONDANSETRON 4 MG/2 ML VIAL IVP PRN (13:08)
[2023-04-14] MEDS ORDERED: INSULIN REGULAR 100 UNIT/ML VIAL (IV) IV ONE (13:15)
[2023-04-14 13:46] LABS: Appearance,Urine Clear (Clear); Bilirubin,Urine 1+ (Negative); Blood,Urine Negative (Negative); Cellular Casts,Urine 1 /lpf (0); Color,Urine Yellow; Glucose,Urine (UA) 4+ (Negative); Hyaline Casts,Urine 8 /lpf (0-2); Leukocyte Esterase,Urine Negative (Negative); Mucus,Urine Occasional /hpf; Nitrite,Urine Negative (Negative); Protein,Urine 1+ (Negative); RBC,Urine 1 /hpf (0-5); WBC,Urine 3 /hpf (0-5)
[2023-04-14 13:51] LABS: Ketones,Urine 3+ (Negative)
[2023-04-14 13:54] LABS: Amphetamine Screen,Urine Not Detected (NotDetected); Barbiturate Screen,Urine Not Detected (NotDetected); Benzodiazepines Screen,Urine Detected (NotDetected); Cocaine Screen,Urine Not Detected (NotDetected); Methadone Screen, Urine Not Detected (NotDetected); Opiate Screen,Urine Detected (NotDetected); Oxycodone Screen, Urine Not Detected (NotDetected); Phencyclidine Screen,Urine Not Detected (NotDetected); Tricyclic Antidepressant,Urine Not Detected (NotDetected); Urn Cannabinoid Scrn Not Detected (NotDetected)
[2023-04-14] MEDS ORDERED: DEXTROSE 50% SYRINGE 50 ML IVP PRN ×2 (14:08)
--- NOTE | 2023-04-14 14:16 | P.HPIM ---
History of Present Illness H&P Date: 04/14/23 History of present illness; patient is 62-year-old gentleman with past medical h istory significant for diabetes mellitus, hypertension who presented to the ER because of left forearm swelling which has been going on for last week. Patient stated he was all right one week back he noticed that there was red area over his left elbow looked like insect bite, initially it was slightly red but it gradually progressed. Patient was seen in urgent care 4-5 days ago at which time he was diagnosed with left forearm cellulitis and was discharged on oral antibiotics. Patient was unable to tolerate these medication he was having nausea and vomiting. Patient also spiking fevers at home. Patient stated that the pain in left forearm was worsening. Patient went to the [facility] on Wednesday, they're planning to admit him with IV antibiotics but since there was no bed available and he was in the ER for long time, patient left AGAINST MEDICAL ADVICE. Patient continued to feel worse, mostly lethargy and weakness. Denied any chest pain or shortness of breath. Denies any swelling of any feet. Because of left forearm swelling he came to the ER Initial lab work done in the ER showed WBC 26, hemoglobin 13.8, platelet 1317, INR 1, sodium 133, potassium 3.7, BUN 27, creatinine 1.66, lactate 3.6 Urine drug screen positive for benzodiazepine In the ER, patient was found to be in A. fib with RVR, started on IV Cardizem drip Patient was admitted to medicine service REVIEW OF SYSTEMS: CONSTITUTIONAL: As mentioned in HPI HEENT: No recent visual problems or hearing problems. Denied any sore throat. CARDIOVASCULAR: No chest pain, orthopnea, PND, no palpitations, no syncope. PULMONARY: As mentioned in HPI GASTROINTESTINAL: No diarrhea, no nausea, no vomiting, no abdominal pain. NEUROLOGICAL: No headaches, no weakness, no numbness. HEMATOLOGICAL: Denies any bleeding or petechiae. GENITOURINARY: Denies any burning micturition, frequency, or urgency. MUSCULOSKELETAL/RHEUMATOLOGICAL: Left forearm swollen and painful ENDOCRINE: Denies any polyuria or polydipsia. The rest of the 14-point review of systems is negative. PHYSICAL EXAMINATION: GENERAL: The patient is alert and oriented x3, not in any acute distress. Well developed, well nourished. HEENT: Pupils are round and equally reacting to light. EOMI. No scleral icterus. No conjunctival pallor. Normocephalic, atraumatic. No pharyngeal erythema. No thyromegaly. CARDIOVASCULAR: S1 and S2 present. No murmurs, rubs, or gallops. PULMONARY: Chest is clear to auscultation, no wheezing or crackles. ABDOMEN: Soft, nontender, nondistended, normoactive bowel sounds. No palpable organomegaly. MUSCULOSKELETAL: Erythema of left forearm, scab over the left elbow EXTREMITIES: No cyanosis, clubbing, or pedal edema. NEUROLOGICAL: Gross neurological examination did not reveal any focal deficits. SKIN: No rashes. Assessment and plan A. fib and RVR Left forearm cellulitis with abscess Sepsis Acute kidney injury Lactic acidosis Hyperglycemia Monitor vital signs Monitor CBC Monitor CMP Continue telemetry monitoring Follow-up on blood cultures Trend troponin Ordered 2-D echo Continue Cardizem drip Continue vancomycin Continue IV fluids Monitor blood sugar levels, continue sliding insulin ID consulted Cardiology consulted Labs and medication were reviewed.. Continue same treatment. Continue with symptomatic treatment. Resume home medication. Monitor labs and vitals. DVT and GI prophylaxis. Further recommendations as per clinical course of the patient Dictation was produced using [employer] dictation software. please excuse any grammatical, word or spelling errors. Past Medical History Past Medical History: Diabetes Mellitus, Hyperlipidemia, Hypertension, Musculoskeletal Disorder, Renal Disease Additional Past Medical History / Comment(s): paraplegia 2002 History of Any Multi-Drug Resistant Organisms: MRSA Date of last positivie culture/infection: 2015 MDRO Source:: L Ankle Past Surgical History: Back Surgery Additional Past Surgical History / Comment(s): Colonoscopy, left leg above the knee amputation Past Anesthesia/Blood Transfusion Reactions: No Reported Reaction Past Psychological History: No Psychological Hx Reported Smoking Status: Current every day smoker Past Alcohol Use History: None Reported Past Drug Use History: None Reported - Past Family History Father Family Medical History: Cancer Additional Family Medical History / Comment(s): Father in his 70s from colon cancer. Mother Family Medical History: Cancer, Deep Vein Thrombosis (DVT) Additional Family Medical History / Comment(s): Mother in her 70s from brain cancer. Sister(s) Family Medical History: Cancer Additional Family Medical History / Comment(s): Patient has 2 sisters and both Ativan and breast cancer. Brother(s) Additional Family Medical History / Comment(s): Patient has 2 brothers with no major medical problems. Patient has 5 children with no major medical problems. Medications and Allergies Home Medications Medication Instructions Recorded Confirmed Type Escitalopram [Lexapro] 20 mg PO DAILY 06/15/16 01/06/23 History Ibuprofen [Motrin] 600 mg PO BID PRN 06/15/16 01/06/23 History diazePAM [Valium] 5 mg PO BID PRN 06/15/16 01/06/23 History Baclofen [Lioresal] 10 mg PO TID 12/18/19 01/06/23 History HYDROcodone/APAP 10-325MG [[place] 1 tab PO QID 12/18/19 01/06/23 History 10-325] Metoprolol Succinate [Toprol XL] 25 mg PO DAILY 12/18/19 01/06/23 History Tamsulosin HCl [Flomax] 0.4 mg PO HS 12/18/19 01/06/23 History lisinopriL 20 mg PO DAILY 12/18/19 01/06/23 History Atorvastatin [Lipitor] 10 mg PO HS #30 tab 01/06/23 Rx Famotidine [Pepcid] 20 mg PO BID PRN 01/06/23 01/06/23 History Insulin NPL/Insulin Lispro 50 units SQ BID #0 01/06/23 01/06/23 Rx [humaLOG MIX 75-25 VIAL] buPROPion SR [Wellbutrin SR] 100 mg PO DAILY 01/06/23 01/06/23 History Allergies Allergy/AdvReac Type Severity Reaction Status Date / Time cephalexin [From Keflex] Allergy Unknown Verified 04/14/23 11:17 levofloxacin [From Levaquin] Allergy Nausea & Verified 04/14/23 11:17 Vomiting,headache morphine Allergy Rash/Hives Verified 04/14/23 11:17 codeine AdvReac sleepy Verified 04/14/23 11:17 olmesartan [From Benicar] AdvReac blacks out Verified 04/14/23 11:17 Physical Exam Vitals: Vital Signs Temp Pulse Resp BP Pulse Ox 04/14/23 14:02 98/66 04/14/23 13:50 97.6 F 141 H 20 108/66 98 04/14/23 12:47 96.7 F L 137 H 80/61 04/14/23 12:03 140 H 22 96/62 98 04/14/23 11:13 95.5 F L 126 H 18 84/72 99 Intake and Output 04/13/23 04/14/23 04/14/23 22:59 06:59 14:59 Other: Weight 90.718 kg Results CBC & Chem 7: 04/14/23 11:35 04/14/23 11:35 Labs: Abnormal Lab Results - Last 24 Hours (Table) 04/14/23 04/14/23 04/14/23 Range/Units 11:35 11:35 11:35 WBC 26.0 H (3.8-10.6) k/uL Neutrophils # 24.0 H (1.3-7.7) k/uL Sodium 133 L (137-145) mmol/L Chloride 88 L (98-107) mmol/L Carbon Dioxide 12 L (22-30) mmol/L BUN 27 H (9-20) mg/dL Creatinine 1.66 H (0.66-1.25) mg/dL Glucose 475 H (74-99) mg/dL Plasma Lactic Acid Glenn 3.6 H* (0.7-2.0) mmol/L Alkaline Phosphatase 239 H (38-126) U/L Urine Protein (Negative) Urine Glucose (UA) (Negative) Urine Ketones (Negative) Urine Bilirubin (Negative) Hyaline Casts (0-2) /lpf Urine Mucus (None) /hpf Urine Opiates Screen (NotDetected) U Benzodiazepines Scrn (NotDetected) 04/14/23 Range/Units 13:25 WBC (3.8-10.6) k/uL Neutrophils # (1.3-7.7) k/uL Sodium (137-145) mmol/L Chloride (98-107) mmol/L Carbon Dioxide (22-30) mmol/L BUN (9-20) mg/dL Creatinine (0.66-1.25) mg/dL Glucose (74-99) mg/dL Plasma Lactic Acid Glenn (0.7-2.0) mmol/L Alkaline Phosphatase (38-126) U/L Urine Protein 1+ H (Negative) Urine Glucose (UA) 4+ H (Negative) Urine Ketones 3+ H (Negative) Urine Bilirubin 1+ H (Negative) Hyaline Casts 8 H (0-2) /lpf Urine Mucus Occasional H (None) /hpf Urine Opiates Screen Detected H (NotDetected) U Benzodiazepines Scrn Detected H (NotDetected)
[2023-04-14 14:17] LABS: Glucose,Whole Blood 508 mg/dL (70-110)
[2023-04-14 14:19] LABS: Glucose,Whole Blood 451 mg/dL (70-110)
[2023-04-14] MEDS ORDERED: HEPARIN SODIUM 1,000 UN/ML (10ML VL) IV ONE (14:29)
[2023-04-14] MEDS: HEPARIN SOD,PORK IN 0.45% NACL 25,000 UNIT in 0.45% NACL 1 250ML.BAG IV SCH (16:07)
[2023-04-14 17:56] LABS: Glucose,Whole Blood 402 mg/dL (70-110)
[2023-04-14] MEDS: INSULIN ASPART (NovoLOG) 100 UNIT/ML VIAL SQ SCH ×2 (18:21→20:28)
[2023-04-14 19:57] LABS: Glucose,Whole Blood 330 mg/dL (70-110)
[2023-04-14] MEDS ORDERED: BACLOFEN 10 MG TAB PO PRN (19:58)
[2023-04-14] MEDS ORDERED: diazePAM 5 MG TAB PO PRN (19:58)
[2023-04-14] MEDS: HYDROcodone/APAP 10-325MG 1 EACH TAB PO SCH (20:27)
[2023-04-14] MEDS: TAMSULOSIN 0.4 MG CAP.ER.24H PO SCH (20:28)
[2023-04-14] MEDS ORDERED: METOPROLOL TARTRATE 50 MG TAB PO STA (22:45)
[2023-04-15 02:00] LABS: Glucose,Whole Blood 258 mg/dL (70-110)
[2023-04-15] MEDS: SODIUM CHLORIDE 0.9% 1,000 ML IV SCH ×3 (05:24→20:19)
--- NOTE | 2023-04-15 05:53 | P.CONS ---
History of Present Illness - Reason for Consult Consult date: 04/14/23 Left forearm abscess Requesting physician: Edin Christine - Chief Complaint Left forearm pain swelling and drainage X few days - History of Present Illness Patient is a 62-year-old male with a past medical history negative for diabetes mellitus hypertension hyperlipidemia previous history of MRSA infection of the left ankle area presenting to the hospital this morning for evaluation of pain and swelling to the left forearm patient is not clear how it started denies any history of any trauma apparently the patient was diagnosed with an abscess and cellulitis on Wednesday that is 4 days before this and discharged on oral antibiotics, however The patient was not able to tolerate because of nausea and vomiting subsequently the patient was admitted at [facility] and has received IV antibiotics patient left AGAINST MEDICAL ADVICE with persistent pain swelling redness of the left upper extremity and did have some purulent drainage patient presented back to [facility] ER for further evaluation on presentation to the hospital the patient was mildly hypothermic tachycardic but not hypotensive or hypoxic patient did have vital 26,000 with a left shift creatinine is 1.66 liver exams are normal urine drug screen was positive for opiates and benzo patient was started on vancomycin infectious disease was consulted for further management of antibiotic therapy patient is currently complaining of pain to the left arm to be sharp and intense is almost 10 out of 10 in severity without any radiation with associated swelling and redness and minimal drainage Review of Systems Positive point and negatives has been mentioned in the HPI, complete review of systems was performed and all other systems are negative Past Medical History Past Medical History: Diabetes Mellitus, Hyperlipidemia, Hypertension, Musculoskeletal Disorder, Renal Disease Additional Past Medical History / Comment(s): paraplegia 2002 History of Any Multi-Drug Resistant Organisms: MRSA Year Discovered:: 2016 MDRO Source:: L Ankle Past Surgical History: Back Surgery Additional Past Surgical History / Comment(s): Colonoscopy, left leg above the knee amputation Past Anesthesia/Blood Transfusion Reactions: No Reported Reaction Past Psychological History: No Psychological Hx Reported Smoking Status: Current every day smoker Past Alcohol Use History: None Reported Past Drug Use History: None Reported - Past Family History Father Family Medical History: Cancer Additional Family Medical History / Comment(s): Father in his 70s from colon cancer. Mother Family Medical History: Cancer, Deep Vein Thrombosis (DVT) Additional Family Medical History / Comment(s): Mother in her 70s from brain cancer. Sister(s) Family Medical History: Cancer Additional Family Medical History / Comment(s): Patient has 2 sisters and both Ativan and breast cancer. Brother(s) Additional Family Medical History / Comment(s): Patient has 2 brothers with no major medical problems. Patient has 5 children with no major medical problems. Medications and Allergies Home Medications Medication Instructions Recorded Confirmed Type Escitalopram [Lexapro] 20 mg PO DAILY 06/15/16 04/19/23 History Ibuprofen [Motrin] 600 mg PO BID PRN 06/15/16 04/19/23 History diazePAM [Valium] 5 mg PO BID PRN 06/15/16 04/19/23 History Baclofen [Lioresal] 10 mg PO TID 12/18/19 04/19/23 History HYDROcodone/APAP 10-325MG [[place] 1 tab PO QID 12/18/19 04/19/23 History 10-325] Metoprolol Succinate [Toprol XL] 25 mg PO DAILY 12/18/19 04/19/23 History Tamsulosin HCl [Flomax] 0.4 mg PO HS 12/18/19 04/19/23 History lisinopriL 20 mg PO DAILY 12/18/19 04/19/23 History Famotidine [Pepcid] 20 mg PO BID PRN 01/06/23 04/19/23 History buPROPion SR [Wellbutrin SR] 100 mg PO DAILY 01/06/23 04/19/23 History Insulin NPL/Insulin Lispro 40 units SQ BID 04/14/23 04/19/23 History [humaLOG MIX 75-25 VIAL] Apixaban [Eliquis] 5 mg PO BID 30 Days #60 tab 04/23/23 Rx HYDROcodone/APAP 5-325MG [[place] 1 each PO Q4HR PRN 3 Days #18 tab 04/23/23 Rx 5-325] amLODIPine [Norvasc] 10 mg PO DAILY 30 Days #30 tab 04/23/23 Rx Allergies Allergy/AdvReac Type Severity Reaction Status Date / Time cephalexin [From Keflex] Allergy Unknown Verified 04/19/23 15:39 levofloxacin [From Levaquin] Allergy Nausea & Verified 04/19/23 15:39 Vomiting,headache morphine Allergy Rash/Hives Verified 04/19/23 15:39 codeine AdvReac sleepy Verified 04/19/23 15:39 olmesartan [From Benicar] AdvReac blacks out Verified 04/19/23 15:39 sulfamethoxazole AdvReac Nausea & Verified 04/19/23 18:43 [From Bactrim] Vomiting trimethoprim [From Bactrim] AdvReac Nausea & Verified 04/19/23 18:43 Vomiting Physical Exam Vitals: Vital Signs Temp Pulse Resp BP Pulse Ox 04/14/23 16:30 130 H 20 99/69 04/14/23 16:00 126 H 20 104/65 97 04/14/23 15:56 130 H 20 95/66 97 04/14/23 15:00 131 H 20 76/56 04/14/23 14:45 131 H 20 73/52 04/14/23 14:30 137 H 89/56 04/14/23 14:02 98/66 04/14/23 13:50 97.6 F 141 H 20 108/66 98 04/14/23 12:47 96.7 F L 137 H 80/61 04/14/23 12:03 140 H 22 96/62 98 04/14/23 11:13 95.5 F L 126 H 18 84/72 99 Intake and Output 04/14/23 04/14/23 04/14/23 06:59 14:59 22:59 Other: Weight 90.718 kg GENERAL DESCRIPTION: Middle-aged male lying in bed, no distress. No tachypnea or accessory muscle of respiration use. HEENT: Shows Pallor , no scleral icterus. Oral mucous membrane is dry. No pharyngeal erythema or thrush NECK: Trachea central, no thyromegaly. LUNGS: Unlabored breathing. Clear to auscultation anteriorly. No wheeze or crackle. HEART: S1, S2, regular rate and rhythm. No loud murmur ABDOMEN: Soft, no tenderness , guarding or rigidity, no organomegaly EXTREMITIES: Left forearm swelling and redness and purulent drainage which was cultured SKIN: No rash, no masses palpable. NEUROLOGICAL: The patient is awake, alert, oriented x3, mood and affect normal. Results CBC & Chem 7: 04/17/23 07:30 04/17/23 07:30 Labs: Abnormal Lab Results - Last 24 Hours (Table) 08/04/14/23 04/14/23 Range/Units 11:35 11:35 11:35 WBC 26.0 H (3.8-10.6) k/uL Neutrophils # 24.0 H (1.3-7.7) k/uL Sodium 133 L (137-145) mmol/L Chloride 88 L (98-107) mmol/L Carbon Dioxide 12 L (22-30) mmol/L BUN 27 H (9-20) mg/dL Creatinine 1.66 H (0.66-1.25) mg/dL Glucose 475 H (74-99) mg/dL POC Glucose (mg/dL) (70-110) mg/dL Plasma Lactic Acid Glenn 3.6 H* (0.7-2.0) mmol/L Alkaline Phosphatase 239 H (38-126) U/L Urine Protein (Negative) Urine Glucose (UA) (Negative) Urine Ketones (Negative) Urine Bilirubin (Negative) Hyaline Casts (0-2) /lpf Urine Mucus (None) /hpf Urine Opiates Screen (NotDetected) U Benzodiazepines Scrn (NotDetected) 04/14/23 04/14/23 04/14/23 Range/Units 13:25 14:16 14:18 WBC (3.8-10.6) k/uL Neutrophils # (1.3-7.7) k/uL Sodium (137-145) mmol/L Chloride (98-107) mmol/L Carbon Dioxide (22-30) mmol/L BUN (9-20) mg/dL Creatinine (0.66-1.25) mg/dL Glucose (74-99) mg/dL POC Glucose (mg/dL) 508 H 451 H (70-110) mg/dL Plasma Lactic Acid Glenn (0.7-2.0) mmol/L Alkaline Phosphatase (38-126) U/L Urine Protein 1+ H (Negative) Urine Glucose (UA) 4+ H (Negative) Urine Ketones 3+ H (Negative) Urine Bilirubin 1+ H (Negative) Hyaline Casts 8 H (0-2) /lpf Urine Mucus Occasional H (None) /hpf Urine Opiates Screen Detected H (NotDetected) U Benzodiazepines Scrn Detected H (NotDetected) Assessment and Plan (1) Abscess of left arm Status: Acute Code(s): L02.414 - CUTANEOUS ABSCESS OF LEFT UPPER LIMB SNOMED Code(s): 89063056296694124 Plan: 1patient with left forearm dorsal area abscess and cellulitis did have evidence of purulent drainage that was cultured likely from gram-positive skin ana such as strep and Staphylococcus aureus failing outpatient oral antibiotic therapy. 2patient with a cephalexin allergy that will limit the number of antibiotics safe to use. 3mild renal insufficiency high risk of nephrotoxicity. 4vancomycin pharmacy to dose with a target trough of 15 while watching kidney function and Vanco trough closely.. 5Ortho evaluation for drainage of this abscess as possibly concern for exte nsion to the and involvement of the olecranon bursa We will follow on clinical condition and cultures to further adjust medication if needed Thank you for this consultation we will follow the patient along with you Dictation was produced using [employer] dictation software. please excuse any grammatical, word or spelling errors. Time with Patient: Greater than 30
[2023-04-15] MEDS ORDERED: VANCOMYCIN 1,500 MG in SODIUM CHLORIDE 0.9% 500 ML 500 ML IVPB SCH (06:00)
[2023-04-15 06:03] LABS: Glucose,Whole Blood 269 mg/dL (70-110)
[2023-04-15] MEDS: INSULIN ASPART (NovoLOG) 100 UNIT/ML VIAL SQ SCH ×4 (06:08→20:21)
--- NOTE | 2023-04-15 07:14 | CA ---
Transthoracic Echo Report Name: Pancho Leslie Age: 62 Gender: M : 1960 Exam Date: 04/14/2023 14:22 Exam Location: [place] [facility] Ht (in): 76 Wt (lb): 200 Ordering Physician: Edin Christine MD Attending/Referring Phys: Revenue Enforcement Collection Agent Jadiel Madrid Procedure CPT: Indications: Slurred speech, CVA Cardiac Hx: Technical Quality: Technically difficult study Contrast 1: Total Dose (mL): Contrast 2: Total Dose (mL): MEASUREMENTS (Male / Female) Normal Values 2D ECHO LV Diastolic Diameter PLAX 4.8 cm 4.2 - 5.9 / 3.9 - 5.3 cm LV Systolic Diameter PLAX 3.5 cm IVS Diastolic Thickness 1.5 cm 0.6 - 1.0 / 0.6 - 0.9 cm LVPW Diastolic Thickness 1.4 cm 0.6 - 1.0 / 0.6 - 0.9 cm LV Relative Wall Thickness 0.6 RV Internal Dim ED PLAX 3.3 cm LVOT Diameter 2.1 cm Aortic Root Diameter 3.1 cm LA Systolic Diameter LX 2.7 cm 3.0 - 4.0 / 2.7 - 3.8 cm LV Diastolic Volume MOD BP 39.3 cm??? 67 - 155 / 56 - 104 cm??? LV Systolic Volume MOD BP 17.1 cm??? 22 - 58 / 19 - 49 cm??? LV Ejection Fraction MOD BP 56.4 % >= 55 % LV Cardiac Index MOD BP 1353.6 cm???/min???m??? LV Diastolic Volume MOD 4C 29.6 cm??? LV Systolic Volume MOD 4C 12.4 cm??? LV Ejection Fraction MOD 4C 57.9 % LV Cardiac Index MOD 4C 1048.1 cm???/min???m??? LV Diastolic Length 4C 6.3 cm LV Systolic Length 4C 6.2 cm LV Diastolic Volume MOD 2C 46.4 cm??? LV Systolic Volume MOD 2C 22.1 cm??? LV Ejection Fraction MOD 2C 52.4 % LV Cardiac Index MOD 2C 1486.6 cm???/min???m??? LV Diastolic Length 2C 7.2 cm LV Systolic Length 2C 6.9 cm LA Volume 46.0 cm??? 18 - 58 / 22 - 52 cm??? DOPPLER AV Peak Velocity 238.2 cm/s AV Peak Gradient 22.7 mmHg AV Mean Velocity 177.1 cm/s AV Mean Gradient 14.6 mmHg AV Velocity Time Integral 38.8 cm MV Peak Velocity 128.3 cm/s MV Peak Gradient 6.6 mmHg MV Mean Velocity 67.7 cm/s MV Mean Gradient 2.3 mmHg MV Velocity Time Integral 25.9 cm Mitral E Point Velocity 80.9 cm/s Mitral A Point Velocity 74.6 cm/s Mitral E to A Ratio 1.1 MV Deceleration Time 165.9 ms MV E' Velocity 6.0 cm/s Mitral E to MV E' Ratio 13.6 TR Peak Velocity 243.0 cm/s TR Peak Gradient 23.6 mmHg Right Ventricular Systolic Press 28.6 mmHg PV Peak Velocity 147.4 cm/s PV Peak Gradient 8.7 mmHg FINDINGS Left Ventricle Normal LV size. Sub Aortic Ventricular septal hypertrophy. Left ventricular ejection fraction is estimated at 50-55%. Right Ventricle Normal right ventricular size. RVSP= 29mmhg. Right Atrium Normal right atrial size. Left Atrium Normal left atrial size. LA volume index= 21ml/m2 Mitral Valve Structurally normal mitral valve. Aortic Valve Hypertrophic subaortic stenosis. Aortic valve not well visualized however there is at least mild to moderate AV calcification. Tricuspid Valve Structurally normal tricuspid valve. Mild TR. Pulmonic Valve Pulmonic valve not well visualized. No pulmonic regurgitation. Pericardium Normal pericardium. Aorta Normal size aortic root . CONCLUSIONS Limited Parasternal views. The LV endocardium was poorly visualized Low normal LV systolic function The intracardiac valves are poorly visualized Previewed by: Dr. Chris Morocho MD (Electronically Signed) Final Date: 15 April 2023 07:13
[2023-04-15 08:18] LABS: Prothrombin Time 10.6 sec (9.0-12.0)
[2023-04-15 08:48] LABS: Basophils % (A) 0 %; Eosinophils % (A) 0 %; HCT 32.6 % (39.0-53.0); Lymphocytes # (A) 0.8 k/uL (1.0-4.8); Lymphocytes % (A) 5 %; MCH 29.2 pg (25.0-35.0); MCHC 33.6 g/dL (31.0-37.0); MCV 86.8 fL (80.0-100.0); Mean Platelet Volume 7.9; Monocytes # (A) 0.6 k/uL (0-1.0); Monocytes % (A) 4 %; Neutrophils # (A) 14.6 k/uL (1.3-7.7); Neutrophils % (A) 90 %; Platelet Count 220 k/uL (150-450); RBC 3.75 m/uL (4.30-5.90); WBC 16.2 k/uL (3.8-10.6)
[2023-04-15] MEDS ORDERED: METOPROLOL SUCCINATE (ER) 25 MG TAB.ER.24H PO SCH (09:00)
[2023-04-15] MEDS: HYDROcodone/APAP 10-325MG 1 EACH TAB PO SCH ×4 (09:13→20:20)
[2023-04-15] MEDS: ATORVASTATIN 40 MG TAB PO SCH (09:13)
[2023-04-15] MEDS: METOPROLOL SUCCINATE (ER) 50 MG TAB.ER.24H PO SCH ×2 (09:13→09:15)
[2023-04-15] MEDS: ESCITALOPRAM 20 MG TAB PO SCH (09:13)
[2023-04-15] MEDS: ASPIRIN 81 MG PO SCH (09:14)
[2023-04-15] MEDS: buPROPion SR 100 MG TABLET.ER PO SCH (09:14)
[2023-04-15] MEDS: HEPARIN SODIUM 1,000 UN/ML (10ML VL) IV PRN ×2 (09:18→18:26)
[2023-04-15] MEDS: HEPARIN SOD,PORK IN 0.45% NACL 25,000 UNIT in 0.45% NACL 1 250ML.BAG IV SCH ×2 (09:19→18:24)
[2023-04-15] MEDS ORDERED: DEXTROSE 50% SYRINGE 50 ML IVP PRN ×2 (09:38)
--- NOTE | 2023-04-15 10:30 | P.CRDCN ---
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 He has a past medical history significant for hypertension, diabetes, depression, and left AKA secondary to peripheral artery disease. We have been asked to evaluate the patient for A. fib with RVR. Patient had a recent hospitalization in December of this year which time he underwent a Lexiscan stress test that was negative. Patient states that he came into the hospital due to vomiting diarrhea unable to eat anything along with fever and chills for 1-2 weeks. He initially went to [facility] and had to wait 78 hours and then he was told he would not be in a bed for 2 or more days. He decided to leave there and went home on the following day he came into [facility] for evaluation. Patient has been admitted to the hospital for sepsis, left arm abscess, gastroenteritis, DKA, acute kidney injury. Patient was found to be in A. fib with RVR and started on Cardizem drip at 5 mg per hour and heparin drip. Patient has no prior history of atrial fibrillation. Patient has not undergone cardiac catheterization in the past. Patient is an active smoker cut down to 2-3 cigarettes per day. He denies any alcohol use. Patient does have chronic dyspnea on exertion. EKG reveals atrial fibrillation at 150 bpm. Echocardiogram 04/14/2023 reveals limited views area and low normal LV systolic function with EF 50-55%, intracardiac valves are poorly visualized WBC 26, hemoglobin 11, platelet count 220. Sodium 133, chloride 88, CO2 12, BUN 27 creatinine 1.66. Blood sugar 475. Troponins 0.032, 0.126, 0.215. Alkaline phosphatase 239 otherwise liver function tests are normal. Lactic acid 1.5. Acetone positive. Urine drug screen positive for opiates and benzodiazepines Current home cardiac medications include lisinopril 20 mg daily and metoprolol succinate 25 mg daily REVIEW OF SYSTEMS: At the time of my exam: CONSTITUTIONAL: Reported fever or chills. HEENT: Denies blurred vision, vision changes, or eye pain. Denies hemoptysis CARDIOVASCULAR: Denies chest pain. Denies orthopnea. Denies PND. Denies palpitat ions RESPIRATORY: Denies shortness of breath. Reports dyspnea on exertion GASTROINTESTINAL: Denies abdominal pain. Mild nausea no vomiting. Reported diarrhea. Denies blood in stools. HEMATOLOGIC: Denies bleeding disorders. GENITOURINARY: Denies any blood in urine. SKIN: Denies pruitis. Denies rash. PHYSICAL EXAM: VITAL SIGNS: Reviewed. GENERAL: Well-developed in no acute distress. HEENT: Head is normocephalic. Pupils are equal, round. Sclerae anicteric. Mucous membranes of the mouth are moist. Neck supple. No JVD or thyromegaly LUNGS: Respirations even and unlabored. Lungs essentially clear to auscultation bilaterally. HEART: Irregular rate and rhythm. S1 and S2 heard. Systolic murmur noted. Tachycardic. ABDOMEN: Soft. Nondistended. Nontender. EXTREMITIES: No clubbing or cyanosis. No edema. Left AKA noted NEUROLOGIC: Awake and alert. Oriented x 3. ASSESSMENT: New onset A. fib with RVR, paroxysmal atrial fibrillation Elevated troponin possibly due to sepsis, tachycardia, acute kidney injury Sepsis with left arm abscess and gastroenteritis DKA with positive acetone Diabetes mellitus uncontrolled, hemoglobin A1c 10.5 in December 2022 Acute kidney injury Dyspnea on exertion Hypertension History of peripheral artery disease status post left AKA Depression Active tobacco use and dependence PLAN: Continue patient's home cardiac medications and increase Toprol-XL to 50 mg daily Start patient on aspirin 81 mg daily, Lipitor 40 mg daily Continue patient on Cardizem drip and heparin drip Patient will be transitioned to oral anticoagulation after need for I&D of abscess has been determined and completed Check lipid panel, hemoglobin A1c, TSH Further recommendations as patient progresses Thank you kindly for this consultation. Nurse practitioner note has been reviewed by physician. Signing provider agrees with the documented findings, assessment, and plan of care. Past Medical History Past Medical History: Diabetes Mellitus, Hyperlipidemia, Hypertension, Musculoskeletal Disorder, Renal Disease Additional Past Medical History / Comment(s): paraplegia 2002 History of Any Multi-Drug Resistant Organisms: MRSA Date of last positivie culture/infection: 2016 MDRO Source:: L Ankle Past Surgical History: Back Surgery Additional Past Surgical History / Comment(s): Colonoscopy, left leg above the knee amputation Past Anesthesia/Blood Transfusion Reactions: No Reported Reaction Past Psychological History: No Psychological Hx Reported Smoking Status: Current every day smoker Past Alcohol Use History: None Reported Past Drug Use History: None Reported - Past Family History Father Family Medical History: Cancer Additional Family Medical History / Comment(s): Father in his 70s from colon cancer. Mother Family Medical History: Cancer, Deep Vein Thrombosis (DVT) Additional Family Medical History / Comment(s): Mother in her 70s from brain cancer. Sister(s) Family Medical History: Cancer Additional Family Medical History / Comment(s): Patient has 2 sisters and both Ativan and breast cancer. Brother(s) Additional Family Medical History / Comment(s): Patient has 2 brothers with no major medical problems. Patient has 5 children with no major medical problems. Medications and Allergies Home Medications Medication Instructions Recorded Confirmed Type Escitalopram [Lexapro] 20 mg PO DAILY 06/15/16 04/14/23 History Ibuprofen [Motrin] 600 mg PO BID PRN 06/15/16 04/14/23 History diazePAM [Valium] 5 mg PO BID PRN 06/15/16 04/14/23 History Baclofen [Lioresal] 10 mg PO TID 12/18/19 04/14/23 History HYDROcodone/APAP 10-325MG [[place] 1 tab PO QID 12/18/19 04/14/23 History 10-325] Metoprolol Succinate [Toprol XL] 25 mg PO DAILY 12/18/19 04/14/23 History Tamsulosin HCl [Flomax] 0.4 mg PO HS 12/18/19 04/14/23 History lisinopriL 20 mg PO DAILY 12/18/19 04/14/23 History Famotidine [Pepcid] 20 mg PO BID PRN 01/06/23 04/14/23 History buPROPion SR [Wellbutrin SR] 100 mg PO DAILY 01/06/23 04/14/23 History Insulin NPL/Insulin Lispro 40 units SQ BID 04/14/23 04/14/23 History [humaLOG MIX 75-25 VIAL] Allergies Allergy/AdvReac Type Severity Reaction Status Date / Time cephalexin [From Keflex] Allergy Unknown Verified 04/14/23 14:20 levofloxacin [From Levaquin] Allergy Nausea & Verified 04/14/23 14:20 Vomiting,headache morphine Allergy Rash/Hives Verified 04/14/23 14:20 codeine AdvReac sleepy Verified 04/14/23 14:20 olmesartan [From Benicar] AdvReac blacks out Verified 04/14/23 14:20 Physical Exam Vitals: Vital Signs Temp Pulse Pulse Resp BP BP Pulse Ox 04/15/23 04:00 124 H 16 102/58 96 04/15/23 01:54 144 H 18 04/14/23 23:30 98.2 F 144 H 18 90/54 99 04/14/23 20:00 98.2 F 139 H 18 119/71 97 04/14/23 19:00 97.8 F 136 H 18 111/65 96 04/14/23 18:36 97.8 F 133 H 20 100/67 97 04/14/23 16:30 130 H 20 99/69 04/14/23 16:00 126 H 20 104/65 97 04/14/23 15:56 130 H 20 95/66 97 04/14/23 15:00 131 H 20 76/56 04/14/23 14:45 131 H 20 73/52 04/14/23 14:30 137 H 89/56 04/14/23 14:02 98/66 04/14/23 13:50 97.6 F 141 H 20 108/66 98 04/14/23 12:47 96.7 F L 137 H 80/61 04/14/23 12:03 140 H 22 96/62 98 04/14/23 11:13 95.5 F L 126 H 18 84/72 99 Intake and Output 04/14/23 04/15/23 04/15/23 22:59 06:59 14:59 Intake Total 72.333 120 Output Total 100 525 Balance -100 -452.667 120 Intake: Intake, IV Titration 72.333 Amount Heparin Sod,Pork in 0.45% 72.333 NaCl 25,000 unit In 0.45 % NaCl 1 250ml.bag @ 11. 023 UNITS/KG/HR 10 mls/hr IV .Q24H [facility] Rx#: [id number] Oral 120 Output: Urine 100 525 Other: Voiding Method Indwelling Catheter Indwelling Catheter Weight 90.718 kg Results 04/15/23 07:50 04/14/23 11:35 Cardiac Enzymes 04/14/23 04/14/23 04/14/23 Range/Units 11:35 16:19 22:36 AST 19 (17-59) U/L Troponin I 0.032 0.126 H* (0.000-0.034) ng/mL Coagulation 04/14/23 04/14/23 Range/Units 11:35 22:36 PT 10.2 (9.0-12.0) sec APTT 22.6 23.1 (22.0-30.0) sec CBC 04/14/23 Range/Units 11:35 WBC 26.0 H (3.8-10.6) k/uL RBC 4.75 (4.30-5.90) m/uL Hgb 13.8 (13.0-17.5) gm/dL Hct 42.2 (39.0-53.0) % Plt Count 317 (150-450) k/uL Comprehensive Metabolic Panel 04/14/23 Range/Units 11:35 Sodium 133 L (137-145) mmol/L Potassium 3.7 (3.5-5.1) mmol/L Chloride 88 L (98-107) mmol/L Carbon Dioxide 12 L (22-30) mmol/L BUN 27 H (9-20) mg/dL Creatinine 1.66 H (0.66-1.25) mg/dL Glucose 475 H (74-99) mg/dL Calcium 9.4 (8.4-10.2) mg/dL AST 19 (17-59) U/L ALT 16 (4-49) U/L Alkaline Phosphatase 239 H (38-126) U/L Total Protein 6.4 (6.3-8.2) g/dL Albumin 3.6 (3.5-5.0) g/dL Current Medications Generic Name Dose Route Start Last Admin Trade Name Freq PRN Reason Stop Dose Admin Acetaminophen 650 mg 04/14/23 13:08 04/15/23 06:22 Acetaminophen Tab 325 Mg Tab PO 650 mg Q6HR PRN Administration Mild Pain or Fever > 100.5 Hydrocodone Bitart/Acetaminophen 1 each 04/14/23 22:00 04/14/23 20:27 Hydrocodone/Apap 10-325mg 1 Each Tab PO 1 each QID GWEN Administration Baclofen 5 mg 04/14/23 19:58 Baclofen 10 Mg Tab PO TID PRN muscle spasm Bupropion HCl 100 mg 04/15/23 09:00 Bupropion Sr 100 Mg Tablet.Er PO DAILY GWEN Dextrose/Water 25 ml 04/14/23 14:08 Dextrose 50% Syringe 50 Ml IVP PER PROTOCOL PRN Hypoglycemia Protocol Dextrose/Water 50 ml 04/14/23 14:08 Dextrose 50% Syringe 50 Ml IVP PER PROTOCOL PRN Hypoglycemia Protocol Diazepam 5 mg 04/14/23 19:58 Diazepam 5 Mg Tab PO BID PRN Anxiety Escitalopram Oxalate 20 mg 04/15/23 09:00 Escitalopram 20 Mg Tab PO DAILY GWEN Heparin Sodium (Porcine) 0 unit 04/14/23 14:29 Heparin Sodium 1,000 Un/Ml (10ml Vl) IV PER PROTOCOL PRN Low PTT Protocol Diltiazem HCl 125 mg/ Sodium 125 mls @ 5 mls/hr 04/14/23 12:15 04/14/23 13:05 Chloride IV 5 mg/hr .Q24H GWEN 5 mls/hr Administration 5 MG/HR Sodium Chloride 1,000 mls @ 130 mls/hr 04/14/23 12:45 04/15/23 05:24 Saline 0.9% IV Not Given .Q7H42M GWEN Vancomycin HCl 1,500 mg/ 500 mls @ 167 mls/hr 04/15/23 06:00 04/15/23 05:43 Sodium Chloride IVPB 167 mls/hr Q16H GWEN Administration Heparin Sodium/Sodium Chloride 250 mls @ 10 mls/hr 04/14/23 14:30 04/14/23 23:21 25,000 unit/ Sodium Chloride IV 14.023 units/kg/hr .Q24H GWEN 12.721 mls/hr Titration Protocol 11.023 UNITS/KG/HR Insulin Aspart 0 unit 04/14/23 17:30 04/15/23 06:08 Insulin Aspart (Novolog) 100 Unit/Ml Vial SQ 9 unit ACHS GWEN Administration Protocol Metoprolol Succinate 50 mg 04/15/23 07:45 Metoprolol Succinate (Er) 50 Mg Tab.Er.24h PO DAILY GWEN Naloxone HCl 0.2 mg 04/14/23 13:08 Naloxone 0.4 Mg/Ml 1 Ml Vial IV Q2M PRN Opioid Reversal Ondansetron HCl 4 mg 04/14/23 13:08 Ondansetron 4 Mg/2 Ml Vial IVP Q8HR PRN Nausea And Vomiting Tamsulosin HCl 0.4 mg 04/14/23 21:00 04/14/23 20:28 Tamsulosin 0.4 Mg Cap.Er.24h PO 0.4 mg HS GWEN Administration Intake and Output 04/14/23 04/15/23 04/15/23 22:59 06:59 14:59 Intake Total 72.333 120 Output Total 100 525 Balance -100 -452.667 120 Intake: Intake, IV Titration 72.333 Amount Heparin Sod,Pork in 0.45% 72.333 NaCl 25,000 unit In 0.45 % NaCl 1 250ml.bag @ 11. 023 UNITS/KG/HR 10 mls/hr IV .Q24H [facility] Rx#: [id number] Oral 120 Output: Urine 100 525 Other: Voiding Method Indwelling Catheter Indwelling Catheter Weight 90.718 kg 04/14/23 11:35 04/14/23 11:35
[2023-04-15 11:26] LABS: African American GFR (CKD) 90 (>60 ml/min/1.73 sqM); Anion Gap 14 mmol/L; Blood Urea Nitrogen 34 mg/dL (9-20); Calcium 8.2 mg/dL (8.4-10.2); Carbon Dioxide 21 mmol/L (22-30); Chloride 97 mmol/L (98-107); Glucose 297 mg/dL (74-99); Non-African American GFR(CKD) 78 (>60 ml/min/1.73 sqM); Potassium 2.9 mmol/L (3.5-5.1); Sodium 132 mmol/L (137-145)
[2023-04-15 11:30] LABS: Glucose,Whole Blood 372 mg/dL (70-110)
[2023-04-15] MEDS: INSULIN DETEMIR (LEVEMIR) 100 UNIT/ML SYR SQ SCH ×2 (12:25→20:21)
[2023-04-15] MEDS ORDERED: SODIUM CHLORIDE 0.9% 500 ML 500 ML IV ONE (12:39)
[2023-04-15] MEDS: DILTIAZEM 125 MG in SODIUM CHLORIDE 0.9% 100 ML IV SCH (12:42)
--- NOTE | 2023-04-15 12:45 | P.CNOR ---
History of Present Illness - [facility] Consult date: 04/15/23 Consult reason: other (Left elbow infection) History of present illness: The patient is a 62-year-old male who presented to [facility] for evaluation of pain and swelling to the left forearm. He was unable to tell me the timeline of the progression of infection at this time but according to the ER note: Patient was diagnosed with abscess and cellulitis on Wednesday which was 5 days prior. He was started on oral antibiotics but was unable to tolerate these secondary to nausea and vomiting. The patient had gone to [facility] on Wednesday which was 2 days ago and received IV antibiotics and was admitted by left his medical advice because there was no bed availability and the patient was going to stay in the emergency department. The patient's denies fever but has had persistent nausea vomiting and diarrhea over the past 24-48 hours. He's had no abdominal pain. He states that the abscess on his left forearm is draining purulent material and he is currently not taking any antibiotics. Upon exam in the ER, he was in A. fib with RVR and had acute kidney injury. The elbow is draining puruluent drainage at this time. He does have pain that radiates down his arm and up the arm. He has chronic numbness to the hand. This afternoon, he states the elbow does not feel any better yet. Review of Systems Constitutional: Denies chills, Denies fatigue, Denies fever Cardiovascular: Denies chest pain Gastrointestinal: Reports diarrhea, Reports nausea, Reports vomiting Musculoskeletal: left: elbow pain, elbow stiffness, elbow swelling Past Medical History Past Medical History: Diabetes Mellitus, Hyperlipidemia, Hypertension, Musculosk eletal Disorder, Renal Disease Additional Past Medical History / Comment(s): paraplegia 2002 History of Any Multi-Drug Resistant Organisms: MRSA Year Discovered:: 2016 MDRO Source:: L Ankle Past Surgical History: Back Surgery Additional Past Surgical History / Comment(s): Colonoscopy, left leg above the knee amputation Past Anesthesia/Blood Transfusion Reactions: No Reported Reaction Past Psychological History: No Psychological Hx Reported Smoking Status: Current every day smoker Past Alcohol Use History: None Reported Past Drug Use History: None Reported - Past Family History Father Family Medical History: Cancer Additional Family Medical History / Comment(s): Father in his 70s from colon cancer. Mother Family Medical History: Cancer, Deep Vein Thrombosis (DVT) Additional Family Medical History / Comment(s): Mother in her 70s from brain cancer. Sister(s) Family Medical History: Cancer Additional Family Medical History / Comment(s): Patient has 2 sisters and both Ativan and breast cancer. Brother(s) Additional Family Medical History / Comment(s): Patient has 2 brothers with no major medical problems. Patient has 5 children with no major medical problems. Medications and Allergies Home Medications Medication Instructions Recorded Confirmed Type Escitalopram [Lexapro] 20 mg PO DAILY 06/15/16 04/14/23 History Ibuprofen [Motrin] 600 mg PO BID PRN 06/15/16 04/14/23 History diazePAM [Valium] 5 mg PO BID PRN 06/15/16 04/14/23 History Baclofen [Lioresal] 10 mg PO TID 12/18/19 04/14/23 History HYDROcodone/APAP 10-325MG [[place] 1 tab PO QID 12/18/19 04/14/23 History 10-325] Metoprolol Succinate [Toprol XL] 25 mg PO DAILY 12/18/19 04/14/23 History Tamsulosin HCl [Flomax] 0.4 mg PO HS 12/18/19 04/14/23 History lisinopriL 20 mg PO DAILY 12/18/19 04/14/23 History Famotidine [Pepcid] 20 mg PO BID PRN 01/06/23 04/14/23 History buPROPion SR [Wellbutrin SR] 100 mg PO DAILY 01/06/23 04/14/23 History Insulin NPL/Insulin Lispro 40 units SQ BID 04/14/23 04/14/23 History [humaLOG MIX 75-25 VIAL] Allergies Allergy/AdvReac Type Severity Reaction Status Date / Time cephalexin [From Keflex] Allergy Unknown Verified 04/14/23 14:20 levofloxacin [From Levaquin] Allergy Nausea & Verified 04/14/23 14:20 Vomiting,headache morphine Allergy Rash/Hives Verified 04/14/23 14:20 codeine AdvReac sleepy Verified 04/14/23 14:20 olmesartan [From Benicar] AdvReac blacks out Verified 04/14/23 14:20 Physical Examination Osteopathic Statement: *. No significant issues noted on an osteopathic structural exam other than those noted in the History and Physical/Consult. The patient is a 62 y/o male in no acute distress. He is alert and oriented x2. Exam of the left upper extremity reveals a wound to the posterior forearm, near the elbow. There is purulent drainage from an area with palpation. There is mild erythema to the surrounding area and forearm. There is pain throughout the forearm. No significant pain or fluctuance to the olecranon bursa. There is atrophy to the dorsal hand that is chronic. Numbness to the hand which is also chronic. No signs of compartment syndrome note. Circulatory status is intact. There are chronic necrotic areas of to the finger tips. Results No x-rays this admissions. X-rays ordered today. - Labs Labs: Abnormal Lab Results - Last 24 Hours (Table) 04/14/23 04/14/23 04/14/23 Range/Units 11:35 13:25 14:16 WBC (3.8-10.6) k/uL RBC (4.30-5.90) m/uL Hgb (13.0-17.5) gm/dL Hct (39.0-53.0) % Neutrophils # (1.3-7.7) k/uL Lymphocytes # (1.0-4.8) k/uL Sodium (137-145) mmol/L Potassium (3.5-5.1) mmol/L Chloride (98-107) mmol/L Carbon Dioxide (22-30) mmol/L BUN (9-20) mg/dL Glucose (74-99) mg/dL POC Glucose (mg/dL) 508 H (70-110) mg/dL Plasma Lactic Acid Glenn 3.6 H* (0.7-2.0) mmol/L Calcium (8.4-10.2) mg/dL Troponin I (0.000-0.034) ng/mL Urine Protein 1+ H (Negative) Urine Glucose (UA) 4+ H (Negative) Urine Ketones 3+ H (Negative) Urine Bilirubin 1+ H (Negative) Hyaline Casts 8 H (0-2) /lpf Urine Mucus Occasional H (None) /hpf Urine Opiates Screen Detected H (NotDetected) U Benzodiazepines Scrn Detected H (NotDetected) 04/14/23 04/14/23 04/14/23 Range/Units 14:18 17:54 19:56 WBC (3.8-10.6) k/uL RBC (4.30-5.90) m/uL Hgb (13.0-17.5) gm/dL Hct (39.0-53.0) % Neutrophils # (1.3-7.7) k/uL Lymphocytes # (1.0-4.8) k/uL Sodium (137-145) mmol/L Potassium (3.5-5.1) mmol/L Chloride (98-107) mmol/L Carbon Dioxide (22-30) mmol/L BUN (9-20) mg/dL Glucose (74-99) mg/dL POC Glucose (mg/dL) 451 H 402 H 330 H (70-110) mg/dL Plasma Lactic Acid Glenn (0.7-2.0) mmol/L Calcium (8.4-10.2) mg/dL Troponin I (0.000-0.034) ng/mL Urine Protein (Negative) Urine Glucose (UA) (Negative) Urine Ketones (Negative) Urine Bilirubin (Negative) Hyaline Casts (0-2) /lpf Urine Mucus (None) /hpf Urine Opiates Screen (NotDetected) U Benzodiazepines Scrn (NotDetected) 04/14/23 04/15/23 04/15/23 Range/Units 22:36 01:58 05:59 WBC (3.8-10.6) k/uL RBC (4.30-5.90) m/uL Hgb (13.0-17.5) gm/dL Hct (39.0-53.0) % Neutrophils # (1.3-7.7) k/uL Lymphocytes # (1.0-4.8) k/uL Sodium (137-145) mmol/L Potassium (3.5-5.1) mmol/L Chloride (98-107) mmol/L Carbon Dioxide (22-30) mmol/L BUN (9-20) mg/dL Glucose (74-99) mg/dL POC Glucose (mg/dL) 258 H 269 H (70-110) mg/dL Plasma Lactic Acid Glenn (0.7-2.0) mmol/L Calcium (8.4-10.2) mg/dL Troponin I 0.126 H* (0.000-0.034) ng/mL Urine Protein (Negative) Urine Glucose (UA) (Negative) Urine Ketones (Negative) Urine Bilirubin (Negative) Hyaline Casts (0-2) /lpf Urine Mucus (None) /hpf Urine Opiates Screen (NotDetected) U Benzodiazepines Scrn (NotDetected) 04/15/23 04/15/23 04/15/23 Range/Units 07:50 07:50 07:53 WBC 16.2 H (3.8-10.6) k/uL RBC 3.75 L (4.30-5.90) m/uL Hgb 11.0 L (13.0-17.5) gm/dL Hct 32.6 L (39.0-53.0) % Neutrophils # 14.6 H (1.3-7.7) k/uL Lymphocytes # 0.8 L (1.0-4.8) k/uL Sodium 132 L (137-145) mmol/L Potassium 2.9 L (3.5-5.1) mmol/L Chloride 97 L (98-107) mmol/L Carbon Dioxide 21 L (22-30) mmol/L BUN 34 H (9-20) mg/dL Glucose 297 H (74-99) mg/dL POC Glucose (mg/dL) (70-110) mg/dL Plasma Lactic Acid Glenn (0.7-2.0) mmol/L Calcium 8.2 L (8.4-10.2) mg/dL Troponin I 0.215 H* (0.000-0.034) ng/mL Urine Protein (Negative) Urine Glucose (UA) (Negative) Urine Ketones (Negative) Urine Bilirubin (Negative) Hyaline Casts (0-2) /lpf Urine Mucus (None) /hpf Urine Opiates Screen (NotDetected) U Benzodiazepines Scrn (NotDetected) 04/15/23 Range/Units 11:29 WBC (3.8-10.6) k/uL RBC (4.30-5.90) m/uL Hgb (13.0-17.5) gm/dL Hct (39.0-53.0) % Neutrophils # (1.3-7.7) k/uL Lymphocytes # (1.0-4.8) k/uL Sodium (137-145) mmol/L Potassium (3.5-5.1) mmol/L Chloride (98-107) mmol/L Carbon Dioxide (22-30) mmol/L BUN (9-20) mg/dL Glucose (74-99) mg/dL POC Glucose (mg/dL) 372 H (70-110) mg/dL Plasma Lactic Acid Glenn (0.7-2.0) mmol/L Calcium (8.4-10.2) mg/dL Troponin I (0.000-0.034) ng/mL Urine Protein (Negative) Urine Glucose (UA) (Negative) Urine Ketones (Negative) Urine Bilirubin (Negative) Hyaline Casts (0-2) /lpf Urine Mucus (None) /hpf Urine Opiates Screen (NotDetected) U Benzodiazepines Scrn (NotDetected) H & H 04/14/23 04/15/23 Range/Units 11:35 07:50 Hgb 13.8 11.0 L (13.0-17.5) gm/dL Hct 42.2 32.6 L (39.0-53.0) % Coagulation 04/14/23 04/15/23 Range/Units 11:35 07:50 INR 1.0 1.0 (<1.2) Result Diagrams: 04/16/23 04:38 04/16/23 04:38 Assessment and Plan (1) Cellulitis of left elbow Current Visit: Yes Status: Acute Code(s): L03.114 - CELLULITIS OF LEFT UPPER LIMB SNOMED Code(s): 560658117 Plan: The clinical and x-ray findings were discussed with the patient. The case was discussed with Dr. Cruz. The wound is currently draining. Warm compresses to the area will be ordered to draw out more drainage. Continue IV antibiotics. We will make him NPO at midnight tonight for possible I&D tomorrow. We will det ermine if surgery is needed tomorrow morning after another 24 hours of antibiotics and warm compresses. We will continue to follow the patient closely and make further recommendations as needed. Agree with above. The wound is beginning to drain and improving. We will watch on IV ABX for now and optimize for possible I&D.
--- NOTE | 2023-04-15 12:56 | P.PN ---
Subjective Progress Note Date: 04/15/23 Principal diagnosis: Left forearm abscess and cellulitis Patient is a 62-year-old male with a past medical history negative for diabetes mellitus hypertension hyperlipidemia previous history of MRSA infection of the left ankle area presenting to the hospital for evaluation of pain and swelling to the left forearm with evidence of abscess. On today's evaluation that is 04/15/2023, the patient denies having any fever or any chills and is breathing comfortably on room air, patient denies having any chest pain shortness of breath or cough, no pain to the left upper extremity no nausea no vomiting no abdominal pain and no diarrhea. The patient white count of 16.2, creatinine is 1.04 blood cultures and local cultures currently pending Objective - Vital Signs Vital signs: Vital Signs Temp 97.8 F 04/15/23 08:00 Pulse 124 H 04/15/23 08:00 Resp 16 04/15/23 08:00 BP 90/55 04/15/23 08:00 Pulse Ox 94 L 04/15/23 08:00 FiO2 Intake & Output 04/14/23 04/15/23 04/15/23 18:59 06:59 18:59 Intake Total 72.333 246.786 Output Total 625 Balance -552.667 246.786 Weight 90.718 kg Intake: Intake, IV Titration 72.333 126.786 Amount Heparin Sod,Pork in 0.45% 72.333 126.786 NaCl 25,000 unit In 0.45 % NaCl 1 250ml.bag @ 11. 023 UNITS/KG/HR 10 mls/hr IV .Q24H [facility] Rx#: [id number] Oral 120 Output: Urine 625 Other: Voiding Method Indwelling Catheter Indwelling Catheter - Exam GENERAL DESCRIPTION: Middle-age male lying in bed in no distress RESPIRATORY SYSTEM: Unlabored breathing , decreased breath sounds at bases HEART: S1 S2 regular rate and rhythm , ABDOMEN: Soft , no tenderness EXTREMITIES: Left upper extremity swelling and redness minimal drainage - Labs CBC & Chem 7: 04/17/23 07:30 04/17/23 07:30 Labs: Abnormal Lab Results - Last 24 Hours (Table) 04/14/23 04/14/23 04/14/23 Range/Units 11:35 11:35 11:35 WBC 26.0 H (3.8-10.6) k/uL RBC (4.30-5.90) m/uL Hgb (13.0-17.5) gm/dL Hct (39.0-53.0) % Neutrophils # 24.0 H (1.3-7.7) k/uL Lymphocytes # (1.0-4.8) k/uL Sodium 133 L (137-145) mmol/L Chloride 88 L (98-107) mmol/L Carbon Dioxide 12 L (22-30) mmol/L BUN 27 H (9-20) mg/dL Creatinine 1.66 H (0.66-1.25) mg/dL Glucose 475 H (74-99) mg/dL POC Glucose (mg/dL) (70-110) mg/dL Plasma Lactic Acid Glenn 3.6 H* (0.7-2.0) mmol/L Alkaline Phosphatase 239 H (38-126) U/L Troponin I (0.000-0.034) ng/mL Urine Protein (Negative) Urine Glucose (UA) (Negative) Urine Ketones (Negative) Urine Bilirubin (Negative) Hyaline Casts (0-2) /lpf Urine Mucus (None) /hpf Urine Opiates Screen (NotDetected) U Benzodiazepines Scrn (NotDetected) 04/14/23 04/14/23 04/14/23 Range/Units 13:25 14:16 14:18 WBC (3.8-10.6) k/uL RBC (4.30-5.90) m/uL Hgb (13.0-17.5) gm/dL Hct (39.0-53.0) % Neutrophils # (1.3-7.7) k/uL Lymphocytes # (1.0-4.8) k/uL Sodium (137-145) mmol/L Chloride (98-107) mmol/L Carbon Dioxide (22-30) mmol/L BUN (9-20) mg/dL Creatinine (0.66-1.25) mg/dL Glucose (74-99) mg/dL POC Glucose (mg/dL) 508 H 451 H (70-110) mg/dL Plasma Lactic Acid Glenn (0.7-2.0) mmol/L Alkaline Phosphatase (38-126) U/L Troponin I (0.000-0.034) ng/mL Urine Protein 1+ H (Negative) Urine Glucose (UA) 4+ H (Negative) Urine Ketones 3+ H (Negative) Urine Bilirubin 1+ H (Negative) Hyaline Casts 8 H (0-2) /lpf Urine Mucus Occasional H (None) /hpf Urine Opiates Screen Detected H (NotDetected) U Benzodiazepines Scrn Detected H (NotDetected) 04/14/23 04/14/23 04/14/23 Range/Units 17:54 19:56 22:36 WBC (3.8-10.6) k/uL RBC (4.30-5.90) m/uL Hgb (13.0-17.5) gm/dL Hct (39.0-53.0) % Neutrophils # (1.3-7.7) k/uL Lymphocytes # (1.0-4.8) k/uL Sodium (137-145) mmol/L Chloride (98-107) mmol/L Carbon Dioxide (22-30) mmol/L BUN (9-20) mg/dL Creatinine (0.66-1.25) mg/dL Glucose (74-99) mg/dL POC Glucose (mg/dL) 402 H 330 H (70-110) mg/dL Plasma Lactic Acid Glenn (0.7-2.0) mmol/L Alkaline Phosphatase (38-126) U/L Troponin I 0.126 H* (0.000-0.034) ng/mL Urine Protein (Negative) Urine Glucose (UA) (Negative) Urine Ketones (Negative) Urine Bilirubin (Negative) Hyaline Casts (0-2) /lpf Urine Mucus (None) /hpf Urine Opiates Screen (NotDetected) U Benzodiazepines Scrn (NotDetected) 04/15/23 04/15/23 04/15/23 Range/Units 01:58 05:59 07:50 WBC 16.2 H (3.8-10.6) k/uL RBC 3.75 L (4.30-5.90) m/uL Hgb 11.0 L (13.0-17.5) gm/dL Hct 32.6 L (39.0-53.0) % Neutrophils # 14.6 H (1.3-7.7) k/uL Lymphocytes # 0.8 L (1.0-4.8) k/uL Sodium (137-145) mmol/L Chloride (98-107) mmol/L Carbon Dioxide (22-30) mmol/L BUN (9-20) mg/dL Creatinine (0.66-1.25) mg/dL Glucose (74-99) mg/dL POC Glucose (mg/dL) 258 H 269 H (70-110) mg/dL Plasma Lactic Acid Glenn (0.7-2.0) mmol/L Alkaline Phosphatase (38-126) U/L Troponin I (0.000-0.034) ng/mL Urine Protein (Negative) Urine Glucose (UA) (Negative) Urine Ketones (Negative) Urine Bilirubin (Negative) Hyaline Casts (0-2) /lpf Urine Mucus (None) /hpf Urine Opiates Screen (NotDetected) U Benzodiazepines Scrn (NotDetected) 04/15/23 Range/Units 07:53 WBC (3.8-10.6) k/uL RBC (4.30-5.90) m/uL Hgb (13.0-17.5) gm/dL Hct (39.0-53.0) % Neutrophils # (1.3-7.7) k/uL Lymphocytes # (1.0-4.8) k/uL Sodium (137-145) mmol/L Chloride (98-107) mmol/L Carbon Dioxide (22-30) mmol/L BUN (9-20) mg/dL Creatinine (0.66-1.25) mg/dL Glucose (74-99) mg/dL POC Glucose (mg/dL) (70-110) mg/dL Plasma Lactic Acid Glenn (0.7-2.0) mmol/L Alkaline Phosphatase (38-126) U/L Troponin I 0.215 H* (0.000-0.034) ng/mL Urine Protein (Negative) Urine Glucose (UA) (Negative) Urine Ketones (Negative) Urine Bilirubin (Negative) Hyaline Casts (0-2) /lpf Urine Mucus (None) /hpf Urine Opiates Screen (NotDetected) U Benzodiazepines Scrn (NotDetected) Assessment and Plan (1) Abscess of left arm Status: Acute Code(s): L02.414 - CUTANEOUS ABSCESS OF LEFT UPPER LIMB SNOMED Code(s): 03972830960057753 Plan: 1patient with left forearm dorsal area abscess and cellulitis did have evidence of purulent drainage that was cultured likely from gram-positive skin ana such as strep and Staphylococcus aureus failing outpatient oral antibiotic therapy. 2patient with a cephalexin allergy that will limit the number of antibiotics safe to use. 3mild renal insufficiency high risk of nephrotoxicity. 4awaiting Ortho evaluation for drainage of this abscess as possibly concern for extension to the and involvement of the olecranon bursa 5-patient to continue the vancomycin while waiting for the culture finalized and monitor clinical course closely Dictation was produced using [employer] dictation software. please excuse any grammatical, word or spelling errors. Time with Patient: Less than 30
--- NOTE | 2023-04-15 13:13 | P.PN ---
Subjective Progress Note Date: 04/15/23 Principal diagnosis: patient is 62-year-old gentleman with past medical history significant for diabetes mellitus, hypertension who presented to the ER because of left forearm swelling which has been going on for last week. Patient stated he was all right one week back he noticed that there was red area over his left elbow looked like insect bite, initially it was slightly red but it gradually progressed. Patient was seen in urgent care 4-5 days ago at which time he was diagnosed with left forearm cellulitis and was discharged on oral antibiotics. Patient was unable to tolerate these medication he was having nausea and vomiting. Patient also spiking fevers at home. Patient stated that the pain in left forearm was worsening. Patient went to the [facility] on Wednesday, they're planning to admit him with IV antibiotics but since there was no bed available and he was in the ER for long time, patient left AGAINST MEDICAL ADVICE. Patient continued to feel worse, mostly lethargy and weakness. Denied any chest pain or shortness of breath. Denies any swelling of any feet. Because of left forearm swelling he came to the ER Initial lab work done in the ER showed WBC 26, hemoglobin 13.8, platelet 1317, INR 1, sodium 133, potassium 3.7, BUN 27, creatinine 1.66, lactate 3.6 Urine drug screen positive for benzodiazepine In the ER, patient was found to be in A. fib with RVR, started on IV Cardizem drip Patient was admitted to medicine service 04/15. Patient seen and examined. Continues to be in A. fib. States left forearm pain is improved REVIEW OF SYSTEMS: CONSTITUTIONAL: No fever, no malaise,. CARDIOVASCULAR: No chest pain, no palpitations, no syncope. PULMONARY: No shortness of breath, no cough, GASTROINTESTINAL: No diarrhea, no nausea, no vomiting, no abdominal pain. NEUROLOGICAL: No headaches, no weakness, PHYSICAL EXAMINATION: GENERAL: The patient is alert and oriented x3, not in any acute distress. Well developed, well nourished. HEENT: Pupils are round and equally reacting to light. EOMI. No scleral icterus. No conjunctival pallor. Normocephalic, atraumatic. No pharyngeal erythema. No thyromegaly. CARDIOVASCULAR: S1 and S2 present. No murmurs, rubs, or gallops. PULMONARY: Chest is clear to auscultation, no wheezing or crackles. ABDOMEN: Soft, nontender, nondistended, normoactive bowel sounds. No palpable organomegaly. MUSCULOSKELETAL: Left elbow swollen, erythema noticeable, EXTREMITIES: No cyanosis, clubbing, or pedal edema. Left AKA NEUROLOGICAL: Gross neurological examination did not reveal any focal deficits. SKIN: No rashes. Assessment and plan A. fib and RVR Left forearm cellulitis with abscess Sepsis Elevated troponin Acute kidney injury Lactic acidosis Hyperglycemia Monitor vital signs Monitor CBC Monitor CMP Continue telemetry monitoring Follow-up on blood cultures Continue Cardizem drip Continue heparin Continue vancomycin IV dose Monitor blood sugar levels, start Lantus 5 units twice a day, continue sliding scale insulin Orthopedic consulted for left forearm abscess. Cardiology following ID following Labs and medication were reviewed.. Continue same treatment. Continue with symptomatic treatment. Resume home medication. Monitor labs and vitals. DVT and GI prophylaxis. Further recommendations as per clinical course of the patient Dictation was produced using [employer] dictation software. please excuse any grammatical, word or spelling errors. Objective - Vital Signs Vital signs: Vital Signs Temp 97.8 F 04/15/23 08:00 Pulse 124 H 04/15/23 08:00 Resp 16 04/15/23 08:00 BP 90/55 04/15/23 08:00 Pulse Ox 94 L 04/15/23 08:00 FiO2 Intake & Output 04/14/23 04/15/23 04/15/23 18:59 06:59 18:59 Intake Total 72.333 246.786 Output Total 625 Balance -552.667 246.786 Weight 90.718 kg Intake: Intake, IV Titration 72.333 126.786 Amount Heparin Sod,Pork in 0.45% 72.333 126.786 NaCl 25,000 unit In 0.45 % NaCl 1 250ml.bag @ 11. 023 UNITS/KG/HR 10 mls/hr IV .Q24H [facility] Rx#: [id number] Oral 120 Output: Urine 625 Other: Voiding Method Indwelling Catheter - Labs CBC & Chem 7: 04/15/23 07:50 04/15/23 07:50 Labs: Abnormal Lab Results - Last 24 Hours (Table) 04/14/23 04/14/23 04/14/23 Range/Units 11:35 11:35 11:35 WBC 26.0 H (3.8-10.6) k/uL RBC (4.30-5.90) m/uL Hgb (13.0-17.5) gm/dL Hct (39.0-53.0) % Neutrophils # 24.0 H (1.3-7.7) k/uL Lymphocytes # (1.0-4.8) k/uL Sodium 133 L (137-145) mmol/L Chloride 88 L (98-107) mmol/L Carbon Dioxide 12 L (22-30) mmol/L BUN 27 H (9-20) mg/dL Creatinine 1.66 H (0.66-1.25) mg/dL Glucose 475 H (74-99) mg/dL POC Glucose (mg/dL) (70-110) mg/dL Plasma Lactic Acid Glenn 3.6 H* (0.7-2.0) mmol/L Alkaline Phosphatase 239 H (38-126) U/L Troponin I (0.000-0.034) ng/mL Urine Protein (Negative) Urine Glucose (UA) (Negative) Urine Ketones (Negative) Urine Bilirubin (Negative) Hyaline Casts (0-2) /lpf Urine Mucus (None) /hpf Urine Opiates Screen (NotDetected) U Benzodiazepines Scrn (NotDetected) 04/14/23 04/14/23 04/14/23 Range/Units 13:25 14:16 14:18 WBC (3.8-10.6) k/uL RBC (4.30-5.90) m/uL Hgb (13.0-17.5) gm/dL Hct (39.0-53.0) % Neutrophils # (1.3-7.7) k/uL Lymphocytes # (1.0-4.8) k/uL Sodium (137-145) mmol/L Chloride (98-107) mmol/L Carbon Dioxide (22-30) mmol/L BUN (9-20) mg/dL Creatinine (0.66-1.25) mg/dL Glucose (74-99) mg/dL POC Glucose (mg/dL) 508 H 451 H (70-110) mg/dL Plasma Lactic Acid Glenn (0.7-2.0) mmol/L Alkaline Phosphatase (38-126) U/L Troponin I (0.000-0.034) ng/mL Urine Protein 1+ H (Negative) Urine Glucose (UA) 4+ H (Negative) Urine Ketones 3+ H (Negative) Urine Bilirubin 1+ H (Negative) Hyaline Casts 8 H (0-2) /lpf Urine Mucus Occasional H (None) /hpf Urine Opiates Screen Detected H (NotDetected) U Benzodiazepines Scrn Detected H (NotDetected) 04/14/23 04/14/23 04/14/23 Range/Units 17:54 19:56 22:36 WBC (3.8-10.6) k/uL RBC (4.30-5.90) m/uL Hgb (13.0-17.5) gm/dL Hct (39.0-53.0) % Neutrophils # (1.3-7.7) k/uL Lymphocytes # (1.0-4.8) k/uL Sodium (137-145) mmol/L Chloride (98-107) mmol/L Carbon Dioxide (22-30) mmol/L BUN (9-20) mg/dL Creatinine (0.66-1.25) mg/dL Glucose (74-99) mg/dL POC Glucose (mg/dL) 402 H 330 H (70-110) mg/dL Plasma Lactic Acid Glenn (0.7-2.0) mmol/L Alkaline Phosphatase (38-126) U/L Troponin I 0.126 H* (0.000-0.034) ng/mL Urine Protein (Negative) Urine Glucose (UA) (Negative) Urine Ketones (Negative) Urine Bilirubin (Negative) Hyaline Casts (0-2) /lpf Urine Mucus (None) /hpf Urine Opiates Screen (NotDetected) U Benzodiazepines Scrn (NotDetected) 04/15/23 04/15/23 04/15/23 Range/Units 01:58 05:59 07:50 WBC 16.2 H (3.8-10.6) k/uL RBC 3.75 L (4.30-5.90) m/uL Hgb 11.0 L (13.0-17.5) gm/dL Hct 32.6 L (39.0-53.0) % Neutrophils # 14.6 H (1.3-7.7) k/uL Lymphocytes # 0.8 L (1.0-4.8) k/uL Sodium (137-145) mmol/L Chloride (98-107) mmol/L Carbon Dioxide (22-30) mmol/L BUN (9-20) mg/dL Creatinine (0.66-1.25) mg/dL Glucose (74-99) mg/dL POC Glucose (mg/dL) 258 H 269 H (70-110) mg/dL Plasma Lactic Acid Glenn (0.7-2.0) mmol/L Alkaline Phosphatase (38-126) U/L Troponin I (0.000-0.034) ng/mL Urine Protein (Negative) Urine Glucose (UA) (Negative) Urine Ketones (Negative) Urine Bilirubin (Negative) Hyaline Casts (0-2) /lpf Urine Mucus (None) /hpf Urine Opiates Screen (NotDetected) U Benzodiazepines Scrn (NotDetected)
[2023-04-15 13:40] LABS: T4, Free (Free Thyroxine) 2.01 ng/dL (0.78-2.19)
--- NOTE | 2023-04-15 13:45 | XR ---
EXAMINATION TYPE: XR forearm LT DATE OF EXAM: 04/15/2023 COMPARISON: NONE HISTORY: Swelling Two views of the forearm demonstrate that the osseous structures appear to be intact and the joint sp aces appear to be preserved. There is no acute fracture or dislocation. Diffuse soft tissue edema a nd emphysema. Mild irregularity along the proximal diaphysis of the cortex of the radius. This likel y is chronic but would recommend a triple phase bone scan to exclude osteomyelitis. IMPRESSION: 1. Diffuse soft tissue edema and soft tissue emphysema compatible with an infectious etiology and dif fuse cellulitis. Mild irregularity along the proximal diaphysis of the cortex of the radius. This lik melissa is chronic but would recommend a triple phase bone scan to exclude osteomyelitis.
[2023-04-15 16:20] LABS: Glucose,Whole Blood 365 mg/dL (70-110)
[2023-04-15] MEDS: VANCOMYCIN 1,500 MG in SODIUM CHLORIDE 0.9% 500 ML 500 ML IVPB SCH (17:20)
[2023-04-15 20:04] LABS: Glucose,Whole Blood 309 mg/dL (70-110)
[2023-04-15] MEDS: TAMSULOSIN 0.4 MG CAP.ER.24H PO SCH (20:20)
[2023-04-15 22:08] LABS: Chol/HDL Ratio 7.78 Ratio; LDL Cholesterol,Calculated 65.1 mg/dL (0.0-131.0)
[2023-04-16] MEDS ORDERED: POTASSIUM CHLORIDE ER 20 MEQ TAB.ER PO ONE
[2023-04-16] MEDS: HEPARIN SODIUM 1,000 UN/ML (10ML VL) IV PRN ×3 (01:45→11:27)
[2023-04-16] MEDS: SODIUM CHLORIDE 0.9% 1,000 ML IV SCH ×3 (03:09→20:57)
[2023-04-16 05:11] LABS: HCT 29.1 % (39.0-53.0); MCH 29.9 pg (25.0-35.0); MCHC 34.5 g/dL (31.0-37.0); MCV 86.6 fL (80.0-100.0); Mean Platelet Volume 8.1; Platelet Count 245 k/uL (150-450); RBC 3.35 m/uL (4.30-5.90); RDW 14.7 % (11.5-15.5)
[2023-04-16 05:24] LABS: ALT 17 U/L (4-49); AST 26 U/L (17-59); African American GFR (CKD) >90 (>60 ml/min/1.73 sqM); Albumin 2.6 g/dL (3.5-5.0); Alkaline Phosphatase 194 U/L (38-126); Anion Gap 8 mmol/L; Blood Urea Nitrogen 21 mg/dL (9-20); Calcium 8.3 mg/dL (8.4-10.2); Carbon Dioxide 24 mmol/L (22-30); Chloride 97 mmol/L (98-107); Glucose 207 mg/dL (74-99); Non-African American GFR(CKD) >90 (>60 ml/min/1.73 sqM); Potassium 3.2 mmol/L (3.5-5.1); Sodium 129 mmol/L (137-145); Total Bilirubin 0.5 mg/dL (0.2-1.3); Total Protein 5.2 g/dL (6.3-8.2)
[2023-04-16] MEDS: VANCOMYCIN 1,500 MG in SODIUM CHLORIDE 0.9% 500 ML 500 ML IVPB SCH ×2 (06:00→16:56)
[2023-04-16] MEDS: HEPARIN SOD,PORK IN 0.45% NACL 25,000 UNIT in 0.45% NACL 1 250ML.BAG IV SCH ×2 (06:00→18:18)
[2023-04-16 06:08] LABS: Glucose,Whole Blood 234 mg/dL (70-110)
[2023-04-16] MEDS: INSULIN DETEMIR (LEVEMIR) 100 UNIT/ML SYR SQ SCH ×2 (06:12→20:57)
[2023-04-16] MEDS: INSULIN ASPART (NovoLOG) 100 UNIT/ML VIAL SQ SCH ×4 (06:13→20:57)
[2023-04-16] MEDS ORDERED: POTASSIUM CHLORIDE ER 20 MEQ TAB.ER PO STA (08:01)
--- NOTE | 2023-04-16 08:42 | P.PN ---
Progress Note - Text Progress Note Date: 04/16/23 Patient was boarded for a left elbow I&D this morning but was medically unstable. Low Na, K, AF with RVR. The patient was alert and oriented in no apparent distress. Drainage has increased from the wound but the redness and erythema are unchanged. Afebrile but WBC17. Spoke with anesthesia and cardiology. Patient was trialed on cardizem yesterday which may have affected BP. Both services agree that an additional day of medical optimizing before proceeding with I&D would be best. Will plan for an I&D tomorrow morning.
[2023-04-16] MEDS: HYDROcodone/APAP 10-325MG 1 EACH TAB PO SCH ×3 (09:05→20:56)
[2023-04-16] MEDS: ASPIRIN 81 MG PO SCH (09:06)
[2023-04-16] MEDS: ESCITALOPRAM 20 MG TAB PO SCH (09:06)
[2023-04-16] MEDS: ATORVASTATIN 40 MG TAB PO SCH (09:06)
[2023-04-16] MEDS: METOPROLOL SUCCINATE (ER) 50 MG TAB.ER.24H PO SCH ×2 (09:06→20:57)
[2023-04-16] MEDS: buPROPion SR 100 MG TABLET.ER PO SCH (09:07)
[2023-04-16] MEDS ORDERED: METOPROLOL TARTRATE 50 MG TAB PO STA (09:52)
[2023-04-16 11:00] LABS: HCT 29.8 % (39.0-53.0); HGB 10.1 gm/dL (13.0-17.5); MCH 28.9 pg (25.0-35.0); MCV 85.1 fL (80.0-100.0); Mean Platelet Volume 7.8; Platelet Count 240 k/uL (150-450); RDW 14.8 % (11.5-15.5); WBC 16.4 k/uL (3.8-10.6)
[2023-04-16] MEDS: POTASSIUM CHLORIDE 20 MEQ in WATER FOR INJECTION 1 100ML.BAG IVPB SCH ×2 (11:27→14:43)
[2023-04-16 11:47] LABS: Glucose,Whole Blood 230 mg/dL (70-110)
--- NOTE | 2023-04-16 12:56 | P.PN ---
Subjective Progress Note Date: 04/16/23 Principal diagnosis: patient is 62-year-old gentleman with past medical history significant for diabetes mellitus, hypertension who presented to the ER because of left forearm swelling which has been going on for last week. Patient stated he was all right one week back he noticed that there was red area over his left elbow looked like insect bite, initially it was slightly red but it gradually progressed. Patient was seen in urgent care 4-5 days ago at which time he was diagnosed with left forearm cellulitis and was discharged on oral antibiotics. Patient was unable to tolerate these medication he was having nausea and vomiting. Patient also spiking fevers at home. Patient stated that the pain in left forearm was worsening. Patient went to the [facility] on Wednesday, they're planning to admit him with IV antibiotics but since there was no bed available and he was in the ER for long time, patient left AGAINST MEDICAL ADVICE. Patient continued to feel worse, mostly lethargy and weakness. Denied any chest pain or shortness of breath. Denies any swelling of any feet. Because of left forearm swelling he came to the ER Initial lab work done in the ER showed WBC 26, hemoglobin 13.8, platelet 1317, INR 1, sodium 133, potassium 3.7, BUN 27, creatinine 1.66, lactate 3.6 Urine drug screen positive for benzodiazepine In the ER, patient was found to be in A. fib with RVR, started on IV Cardizem drip Patient was admitted to medicine service 04/15. Patient seen and examined. Continues to be in A. fib. States left forearm pain is improved 04/16. Patient seen and examined. Potassium this morning is 3.2, replacement ordered. Still in A. fib. Still having pain in left elbow REVIEW OF SYSTEMS: CONSTITUTIONAL: No fever, no malaise,. CARDIOVASCULAR: No chest pain, no palpitations, no syncope. PULMONARY: No shortness of breath, no cough, GASTROINTESTINAL: No diarrhea, no nausea, no vomiting, no abdominal pain. NEUROLOGICAL: No headaches, no weakness, PHYSICAL EXAMINATION: GENERAL: The patient is alert and oriented x3, not in any acute distress. Well developed, well nourished. HEENT: Pupils are round and equally reacting to light. EOMI. No scleral icterus. No conjunctival pallor. Normocephalic, atraumatic. No pharyngeal erythema. No thyromegaly. CARDIOVASCULAR: S1 and S2 present. No murmurs, rubs, or gallops. PULMONARY: Chest is clear to auscultation, no wheezing or crackles. ABDOMEN: Soft, nontender, nondistended, normoactive bowel sounds. No palpable organomegaly. MUSCULOSKELETAL: Left elbow swollen, erythema noticeable, EXTREMITIES: No cyanosis, clubbing, or pedal edema. Left AKA NEUROLOGICAL: Gross neurological examination did not reveal any focal deficits. SKIN: No rashes. Assessment and plan A. fib and RVR Left forearm cellulitis with abscess Sepsis Elevated troponin Acute kidney injury Lactic acidosis Hyperglycemia Monitor vital signs Monitor CBC Monitor CMP Continue telemetry monitoring Follow-up on blood cultures Continue Cardizem drip Continue heparin Continue vancomycin IV dose Monitor blood sugar levels, increased Lantus to 7 units twice a day, continue sliding scale insulin Orthopedic evaluated the patient, planning I and D for tomorrow Cardiology following ID following Labs and medication were reviewed.. Continue same treatment. Continue with symptomatic treatment. Resume home medication. Monitor labs and vitals. DVT and GI prophylaxis. Further recommendations as per clinical course of the patient Dictation was produced using [employer] dictation software. please excuse any grammatical, word or spelling errors. Objective - Vital Signs Vital signs: Vital Signs Temp 98.7 F 04/16/23 08:15 Pulse 123 H 04/16/23 08:15 Resp 18 04/16/23 08:15 BP 131/74 04/16/23 08:15 Pulse Ox 90 L 04/16/23 08:15 FiO2 Intake & Output 04/15/23 04/16/23 04/16/23 18:59 06:59 18:59 Intake Total 2722.335 190.975 Output Total 350 300 Balance 2372.335 -109.025 Intake: Intake, IV Titration 1742.335 190.975 Amount Heparin Sod,Pork in 0.45% 242.335 190.975 NaCl 25,000 unit In 0.45 % NaCl 1 250ml.bag @ 11. 023 UNITS/KG/HR 10 mls/hr IV .Q24H [facility] Rx#: [id number] Sodium Chloride 0.9% 1, 500 000 ml @ 130 mls/hr IV . Q7H42M [facility] Rx#:[id number] Sodium Chloride 0.9% 500 500 ml 500 ml @ 999 mls/hr IV .Q31M [facility] Rx#:[id number] Vancomycin 1,500 mg In 500 Sodium Chloride 0.9% 500 ml 500 ml @ 167 mls/hr IVPB Q12H [facility] Rx#: [id number] Oral 980 Output: Urine 350 300 Other: Voiding Method Indwelling Catheter Indwelling Catheter Indwelling Catheter - Labs CBC & Chem 7: 04/16/23 10:26 04/16/23 04:38 Labs: Abnormal Lab Results - Last 24 Hours (Table) 04/15/23 04/15/23 04/15/23 Range/Units 07:50 07:50 07:50 WBC (3.8-10.6) k/uL RBC (4.30-5.90) m/uL Hgb (13.0-17.5) gm/dL Hct (39.0-53.0) % APTT (22.0-30.0) sec Sodium 132 L (137-145) mmol/L Potassium 2.9 L (3.5-5.1) mmol/L Chloride 97 L (98-107) mmol/L Carbon Dioxide 21 L (22-30) mmol/L BUN 34 H (9-20) mg/dL Glucose 297 H (74-99) mg/dL POC Glucose (mg/dL) (70-110) mg/dL Hemoglobin A1c 10.0 H (<=6.0) % Calcium 8.2 L (8.4-10.2) mg/dL Alkaline Phosphatase (38-126) U/L Total Protein (6.3-8.2) g/dL Albumin (3.5-5.0) g/dL Triglycerides 241.00 H (0.00-149.00) mg/dL VLDL Cholesterol, Calc 48.20 H (5.00-40.00) mg/dL HDL Cholesterol 16.70 L (40.00-60.00) mg/dL TSH 0.242 L (0.465-4.680) mIU/L 04/15/23 04/15/23 04/15/23 Range/Units 11:29 16:18 20:02 WBC (3.8-10.6) k/uL RBC (4.30-5.90) m/uL Hgb (13.0-17.5) gm/dL Hct (39.0-53.0) % APTT (22.0-30.0) sec Sodium (137-145) mmol/L Potassium (3.5-5.1) mmol/L Chloride (98-107) mmol/L Carbon Dioxide (22-30) mmol/L BUN (9-20) mg/dL Glucose (74-99) mg/dL POC Glucose (mg/dL) 372 H 365 H 309 H (70-110) mg/dL Hemoglobin A1c (<=6.0) % Calcium (8.4-10.2) mg/dL Alkaline Phosphatase (38-126) U/L Total Protein (6.3-8.2) g/dL Albumin (3.5-5.0) g/dL Triglycerides (0.00-149.00) mg/dL VLDL Cholesterol, Calc (5.00-40.00) mg/dL HDL Cholesterol (40.00-60.00) mg/dL TSH (0.465-4.680) mIU/L 04/16/23 04/16/23 04/16/23 Range/Units 04:38 04:38 04:38 WBC 17.0 H (3.8-10.6) k/uL RBC 3.35 L (4.30-5.90) m/uL Hgb 10.0 L (13.0-17.5) gm/dL Hct 29.1 L (39.0-53.0) % APTT 31.2 H (22.0-30.0) sec Sodium 129 L (137-145) mmol/L Potassium 3.2 L (3.5-5.1) mmol/L Chloride 97 L (98-107) mmol/L Carbon Dioxide (22-30) mmol/L BUN 21 H (9-20) mg/dL Glucose 207 H (74-99) mg/dL POC Glucose (mg/dL) (70-110) mg/dL Hemoglobin A1c (<=6.0) % Calcium 8.3 L (8.4-10.2) mg/dL Alkaline Phosphatase 194 H (38-126) U/L Total Protein 5.2 L (6.3-8.2) g/dL Albumin 2.6 L (3.5-5.0) g/dL Triglycerides (0.00-149.00) mg/dL VLDL Cholesterol, Calc (5.00-40.00) mg/dL HDL Cholesterol (40.00-60.00) mg/dL TSH (0.465-4.680) mIU/L 04/16/23 Range/Units 06:05 WBC (3.8-10.6) k/uL RBC (4.30-5.90) m/uL Hgb (13.0-17.5) gm/dL Hct (39.0-53.0) % APTT (22.0-30.0) sec Sodium (137-145) mmol/L Potassium (3.5-5.1) mmol/L Chloride (98-107) mmol/L Carbon Dioxide (22-30) mmol/L BUN (9-20) mg/dL Glucose (74-99) mg/dL POC Glucose (mg/dL) 234 H (70-110) mg/dL Hemoglobin A1c (<=6.0) % Calcium (8.4-10.2) mg/dL Alkaline Phosphatase (38-126) U/L Total Protein (6.3-8.2) g/dL Albumin (3.5-5.0) g/dL Triglycerides (0.00-149.00) mg/dL VLDL Cholesterol, Calc (5.00-40.00) mg/dL HDL Cholesterol (40.00-60.00) mg/dL TSH (0.465-4.680) mIU/L Microbiology - Last 24 Hours (Table) 04/14/23 16:54 Gram Stain - Preliminary Elbow - Left Wound Culture - Preliminary Presumptive Staph aureus 04/14/23 11:50 Blood Culture - Preliminary Blood 04/14/23 11:35 Blood Culture - Preliminary Blood
--- NOTE | 2023-04-16 13:01 | P.PN ---
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 He has a past medical history significant for hypertension, diabetes, depression, and left AKA secondary to peripheral artery disease. We have been asked to evaluate the patient for A. fib with RVR. Patient had a recent hospitalization in December of this year which time he underwent a Lexiscan stress test that was negative. Patient states that he came into the hospital due to vomiting diarrhea unable to eat anything along with fever and chills for 1-2 weeks. He initially went to [facility] and had to wait 78 hours and then he was told he would not be in a bed for 2 or more days. He decided to leave there and went home on the following day he came into [facility] for evaluation. Patient has been admitted to the hospital for sepsis, left arm abscess, gastroenteritis, DKA, acute kidney injury. Patient was found to be in A. fib with RVR and started on Cardizem drip at 5 mg per hour and heparin drip. Patient has no prior history of atrial fibrillation. Patient has not undergone cardiac catheterization in the past. Patient is an active smoker cut down to 2-3 cigarettes per day. He denies any alcohol use. Patient does have chronic dyspnea on exertion. EKG reveals atrial fibrillation at 150 bpm. Echocardiogram 04/14/2023 reveals limited views area and low normal LV systolic function with EF 50-55%, intracardiac valves are poorly visualized WBC 26, hemoglobin 11, platelet count 220. Sodium 133, chloride 88, CO2 12, BUN 27 creatinine 1.66. Blood sugar 475. Troponins 0.032, 0.126, 0.215. Alkaline phosphatase 239 otherwise liver function tests are normal. Lactic acid 1.5. Acetone positive. Urine drug screen positive for opiates and benzodiazepines Current home cardiac medications include lisinopril 20 mg daily and metoprolol succinate 25 mg daily 04/16 Patient was scheduled for I&D of the left arm this morning but because his heart rate was 133 and yesterday he had hypotension, anesthesia will not accept him for surgery today. Yesterday afternoon, patient had a drop in his heart rate and in his blood pressure, Cardizem drip was discontinued and he was given a fluid bolus. Today heart rate was initially 133 now running 90s to 116. Patient denies having any problems overnight. He slept okay. He still complains of soreness in the left elbow area. Repeat blood work reveals WBC 16.4, hemoglobin 10.1. Sodium 129, potassium 3.2 and replaced, BUN 21 creatinine 0.75. Triglycerides 241, cholesterol 130, LDL 65, HDL 16. TSH 0.242 and free T4 normal at 01. Hemoglobin A1c 10. I&D has been rescheduled for tomorrow. PHYSICAL EXAM: VITAL SIGNS: Reviewed. GENERAL: Well-developed in no acute distress. HEENT: Head is normocephalic. Pupils are equal, round. Sclerae anicteric. Mucous membranes of the mouth are moist. Neck supple. No JVD or thyromegaly LUNGS: Respirations even and unlabored. Lungs essentially clear to auscultation bilaterally. HEART: Irregular rate and rhythm. S1 and S2 heard. Systolic murmur noted. Tachycardic. ABDOMEN: Soft. Nondistended. Nontender. EXTREMITIES: No clubbing or cyanosis. No edema. Left AKA noted NEUROLOGIC: Awake and alert. Oriented x 3. ASSESSMENT: New onset A. fib with RVR, paroxysmal atrial fibrillation Elevated troponin possibly due to sepsis, tachycardia, acute kidney injury Sepsis with left arm abscess and gastroenteritis DKA with positive acetone Diabetes mellitus uncontrolled, hemoglobin A1c 10.5 in December 2022 Acute kidney injury Dyspnea on exertion Hypertension History of peripheral artery disease status post left AKA Depression Active tobacco use and dependence PLAN: Continue patient's home cardiac medications and increase Toprol-XL to 50 mg twice daily Continue patient on aspirin 81 mg daily, Lipitor 40 mg daily Continue patient on heparin drip until after I and D Further recommendations as patient progresses Thank you kindly for this consultation. Nurse practitioner note has been reviewed by physician. Signing provider agrees with the documented findings, assessment, and plan of care. Objective - Vital Signs Vital signs: Vital Signs Temp 98.7 F 04/16/23 08:15 Pulse 123 H 04/16/23 08:15 Resp 18 04/16/23 08:15 BP 131/74 04/16/23 08:15 Pulse Ox 90 L 04/16/23 08:15 FiO2 Intake & Output 04/15/23 04/16/23 04/16/23 18:59 06:59 18:59 Intake Total 2722.335 190.975 Output Total 350 300 Balance 2372.335 -109.025 Intake: Intake, IV Titration 1742.335 190.975 Amount Heparin Sod,Pork in 0.45% 242.335 190.975 NaCl 25,000 unit In 0.45 % NaCl 1 250ml.bag @ 11. 023 UNITS/KG/HR 10 mls/hr IV .Q24H [facility] Rx#: [id number] Sodium Chloride 0.9% 1, 500 000 ml @ 130 mls/hr IV . Q7H42M [facility] Rx#:[id number] Sodium Chloride 0.9% 500 500 ml 500 ml @ 999 mls/hr IV .Q31M [facility] Rx#:[id number] Vancomycin 1,500 mg In 500 Sodium Chloride 0.9% 500 ml 500 ml @ 167 mls/hr IVPB Q12H [facility] Rx#: [id number] Oral 980 Output: Urine 350 300 Other: Voiding Method Indwelling Catheter Indwelling Catheter Indwelling Catheter - Labs CBC & Chem 7: 04/16/23 10:26 04/16/23 04:38 Labs: Abnormal Lab Results - Last 24 Hours (Table) 04/15/23 04/15/23 04/15/23 Range/Units 07:50 07:50 16:18 WBC (3.8-10.6) k/uL RBC (4.30-5.90) m/uL Hgb (13.0-17.5) gm/dL Hct (39.0-53.0) % APTT (22.0-30.0) sec Sodium (137-145) mmol/L Potassium (3.5-5.1) mmol/L Chloride (98-107) mmol/L BUN (9-20) mg/dL Glucose (74-99) mg/dL POC Glucose (mg/dL) 365 H (70-110) mg/dL Hemoglobin A1c 10.0 H (<=6.0) % Calcium (8.4-10.2) mg/dL Alkaline Phosphatase (38-126) U/L Total Protein (6.3-8.2) g/dL Albumin (3.5-5.0) g/dL Triglycerides 241.00 H (0.00-149.00) mg/dL VLDL Cholesterol, Calc 48.20 H (5.00-40.00) mg/dL HDL Cholesterol 16.70 L (40.00-60.00) mg/dL TSH 0.242 L (0.465-4.680) mIU/L 04/15/23 04/16/23 04/16/23 Range/Units 20:02 04:38 04:38 WBC 17.0 H (3.8-10.6) k/uL RBC 3.35 L (4.30-5.90) m/uL Hgb 10.0 L (13.0-17.5) gm/dL Hct 29.1 L (39.0-53.0) % APTT (22.0-30.0) sec Sodium 129 L (137-145) mmol/L Potassium 3.2 L (3.5-5.1) mmol/L Chloride 97 L (98-107) mmol/L BUN 21 H (9-20) mg/dL Glucose 207 H (74-99) mg/dL POC Glucose (mg/dL) 309 H (70-110) mg/dL Hemoglobin A1c (<=6.0) % Calcium 8.3 L (8.4-10.2) mg/dL Alkaline Phosphatase 194 H (38-126) U/L Total Protein 5.2 L (6.3-8.2) g/dL Albumin 2.6 L (3.5-5.0) g/dL Triglycerides (0.00-149.00) mg/dL VLDL Cholesterol, Calc (5.00-40.00) mg/dL HDL Cholesterol (40.00-60.00) mg/dL TSH (0.465-4.680) mIU/L 04/16/23 04/16/23 04/16/23 Range/Units 04:38 06:05 10:26 WBC 16.4 H (3.8-10.6) k/uL RBC 3.50 L (4.30-5.90) m/uL Hgb 10.1 L (13.0-17.5) gm/dL Hct 29.8 L (39.0-53.0) % APTT 31.2 H (22.0-30.0) sec Sodium (137-145) mmol/L Potassium (3.5-5.1) mmol/L Chloride (98-107) mmol/L BUN (9-20) mg/dL Glucose (74-99) mg/dL POC Glucose (mg/dL) 234 H (70-110) mg/dL Hemoglobin A1c (<=6.0) % Calcium (8.4-10.2) mg/dL Alkaline Phosphatase (38-126) U/L Total Protein (6.3-8.2) g/dL Albumin (3.5-5.0) g/dL Triglycerides (0.00-149.00) mg/dL VLDL Cholesterol, Calc (5.00-40.00) mg/dL HDL Cholesterol (40.00-60.00) mg/dL TSH (0.465-4.680) mIU/L 04/16/23 04/16/23 Range/Units 10:26 11:40 WBC (3.8-10.6) k/uL RBC (4.30-5.90) m/uL Hgb (13.0-17.5) gm/dL Hct (39.0-53.0) % APTT 37.1 H (22.0-30.0) sec Sodium (137-145) mmol/L Potassium (3.5-5.1) mmol/L Chloride (98-107) mmol/L BUN (9-20) mg/dL Glucose (74-99) mg/dL POC Glucose (mg/dL) 230 H (70-110) mg/dL Hemoglobin A1c (<=6.0) % Calcium (8.4-10.2) mg/dL Alkaline Phosphatase (38-126) U/L Total Protein (6.3-8.2) g/dL Albumin (3.5-5.0) g/dL Triglycerides (0.00-149.00) mg/dL VLDL Cholesterol, Calc (5.00-40.00) mg/dL HDL Cholesterol (40.00-60.00) mg/dL TSH (0.465-4.680) mIU/L Microbiology - Last 24 Hours (Table) 04/14/23 16:54 Gram Stain - Preliminary Elbow - Left Wound Culture - Preliminary Presumptive Staph aureus 04/14/23 11:50 Blood Culture - Preliminary Blood 04/14/23 11:35 Blood Culture - Preliminary Blood
[2023-04-16 13:39] VITALS: BMI 24.3
[2023-04-16] MEDS: NICOTINE 21MG/24HR PATCH TRANSDERM SCH (14:43)
[2023-04-16] MEDS: DILTIAZEM 125 MG in SODIUM CHLORIDE 0.9% 100 ML IV SCH (14:46)
[2023-04-16 17:01] LABS: Glucose,Whole Blood 204 mg/dL (70-110)
[2023-04-16 20:14] LABS: Glucose,Whole Blood 262 mg/dL (70-110)
[2023-04-16] MEDS: TAMSULOSIN 0.4 MG CAP.ER.24H PO SCH (20:56)
[2023-04-17] MEDS: HEPARIN SOD,PORK IN 0.45% NACL 25,000 UNIT in 0.45% NACL 1 250ML.BAG IV SCH ×2 (03:13→20:12)
[2023-04-17] MEDS: SODIUM CHLORIDE 0.9% 1,000 ML IV SCH ×3 (03:14→20:10)
[2023-04-17] MEDS: HYDROcodone/APAP 10-325MG 1 EACH TAB PO SCH ×5 (03:19→21:01)
[2023-04-17] MEDS ORDERED: VANCOMYCIN TROUGH DUE 1 EACH MISC MISCELLANE ONE (05:00)
[2023-04-17 06:23] LABS: Glucose,Whole Blood 124 mg/dL (70-110)
[2023-04-17] MEDS: INSULIN ASPART (NovoLOG) 100 UNIT/ML VIAL SQ SCH ×4 (06:34→20:11)
[2023-04-17] MEDS: INSULIN DETEMIR (LEVEMIR) 100 UNIT/ML SYR SQ SCH ×2 (06:40→21:01)
[2023-04-17 07:54] LABS: HCT 28.9 % (39.0-53.0); HGB 9.7 gm/dL (13.0-17.5); MCHC 33.6 g/dL (31.0-37.0); MCV 86.3 fL (80.0-100.0); Mean Platelet Volume 7.7; Platelet Count 228 k/uL (150-450); RBC 3.35 m/uL (4.30-5.90); WBC 11.3 k/uL (3.8-10.6)
[2023-04-17] MEDS: VANCOMYCIN 1,500 MG in SODIUM CHLORIDE 0.9% 500 ML 500 ML IVPB SCH ×2 (08:03→18:13)
[2023-04-17] MEDS: NICOTINE 21MG/24HR PATCH TRANSDERM SCH (08:04)
[2023-04-17] MEDS: ASPIRIN 81 MG PO SCH (08:04)
[2023-04-17] MEDS: buPROPion SR 100 MG TABLET.ER PO SCH (08:04)
[2023-04-17] MEDS: ESCITALOPRAM 20 MG TAB PO SCH (08:04)
[2023-04-17] MEDS: ATORVASTATIN 40 MG TAB PO SCH (08:04)
[2023-04-17] MEDS: METOPROLOL SUCCINATE (ER) 50 MG TAB.ER.24H PO SCH ×2 (08:04→20:11)
[2023-04-17 08:08] LABS: ALT 18 U/L (4-49); AST 23 U/L (17-59); African American GFR (CKD) >90 (>60 ml/min/1.73 sqM); Albumin 2.3 g/dL (3.5-5.0); Alkaline Phosphatase 160 U/L (38-126); Anion Gap 5 mmol/L; Blood Urea Nitrogen 16 mg/dL (9-20); Calcium 8.1 mg/dL (8.4-10.2); Carbon Dioxide 26 mmol/L (22-30); Chloride 104 mmol/L (98-107); Glucose 119 mg/dL (74-99); Non-African American GFR(CKD) >90 (>60 ml/min/1.73 sqM); Potassium 3.3 mmol/L (3.5-5.1); Sodium 135 mmol/L (137-145); Total Bilirubin 0.4 mg/dL (0.2-1.3); Total Protein 4.8 g/dL (6.3-8.2)
[2023-04-17] MEDS ORDERED: LIDOCAINE 0.5%-EPI 1:200,000 50 ML VIAL INTRAARTIC ONE ×3 (09:47→10:07)
[2023-04-17] MEDS ORDERED: BUPIVACAINE (PF) 0.5% 30 ML VIAL INTRAARTIC ONE ×3 (09:48→10:07)
[2023-04-17] MEDS ORDERED: LIDOCAINE 2% INJ 20 MG/ML (2 ML VIAL) ONE (09:49)
[2023-04-17] MEDS ORDERED: fentaNYL (PF) 50 MCG/ML 2 ML AMP ONE (09:49)
[2023-04-17] MEDS ORDERED: PROPOFOL 10 MG/ML 20 ML VIAL IV ONE (09:49)
[2023-04-17] MEDS ORDERED: IV FLUID CONTINUATION 1,000 ML IV ONE (09:49)
[2023-04-17] MEDS ORDERED: MIDAZOLAM 2 MG/2 ML VIAL ONE (09:49)
[2023-04-17] MEDS ORDERED: LACTATED RINGERS 1,000 ML IV ONE (10:25)
--- NOTE | 2023-04-17 10:51 | P.OP ---
Date of Procedure: 04/17/23 Preoperative Diagnosis: Left forearm abscess Postoperative Diagnosis: Same Procedure(s) Performed: Left forearm I&D Anesthesia: MAC, local Surgeon: Natasha Cruz Estimated Blood Loss (ml): 5 Condition: stable Disposition: PACU Indications for Procedure: Pancho is a 62-year-old with many medical comorbidities. He has a left arm abscess. The history of the cellulitis and abscess or little unclear as to patient is a poor historian. The abscess is started draining but the patient continues to have pain and swelling despite IV antibiotics. He was seen by cardiology and medicine for optimization and cleared for surgery today. Operative Findings: Intramuscular abscess along the extensor side of the forearm. Suprafascial abscess towards the radial side of the forearm. Description of Procedure: Patient, operative extremity, and procedure were identified in the preop holding area. After informed consent was obtained the patient was brought back to the operating room or local block was performed with 1% lidocaine with epinephrine and half percent Marcaine. Following this the extremity was prepped and draped in normal sterile fashion. After formal timeout was performed the tourniquet was inflated. Attention was first turned to the draining aspect of the abscess. The fibrinous material was removed hemostat was inserted to gently probe the area. There was a tracking sinus distally along the radial side of the forearm. Along the ulnar side of the forearm there is another tracking sinus going distally through the forearm fascia into the musculature. Both pockets had purulent drainage. Culture was obtained. A longitudinal incision was made along the ulnar side of the forearm extending from the existing open wound. A hemostat was utilized to break up any loculations and allow the purulence to drain. Cystoscopy tubing was utilized to copiously irrigate both sinus tracts. The forearm was smokes and irrigation was continued until there was no longer any purulence noted and the irrigation was clear. All infectious looking tissue was removed with a Hussain. Approximately 1 cm x 1 cm of tissue was removed. This was largely infected and frayed fascia and subcutaneous fat. Debridement was carried down to the level of the muscle. The tourniquet was let down hemostasis was achieved and 3 drains were inserted. A counter incision was made along the radial aspect of the arm and a [place] was inserted here. 2 [place] drains were inserted along the ulnar side of the forearm one deep within the musculature and the other superficial over the fascia. The wound was closed around the drains with 3-0 nylon suture. The original draining wound was partially closed with 3-0 nylon suture. Wound was dressed with 4 x 4's ABDs and web roll and an Ariel wrap. Patient was aroused by anesthesia team and brought back to PACU in stable condition
[2023-04-17] MEDS ORDERED: HYDROmorphone 0.5 MG/0.5 ML SYRINGE IVP PRN (10:56)
[2023-04-17 11:39] LABS: Glucose,Whole Blood 138 mg/dL (70-110)
--- NOTE | 2023-04-17 13:25 | P.PN ---
Subjective Progress Note Date: 04/17/23 PROGRESS NOTE The patient is a 62-year-old male who presented with evidence of sepsis from the left arm, atrial fibrillation with rapid ventricle response, diabetes mellitus acute kidney injury and elevation of the troponin secondary to the infection. He underwent I&D of the left elbow today. He is feeling well. He is in atrial flutter ablation was controlled ventricle response. He denies any chest discomfort, dizziness or palpitations. He is anxious to go home. He denies any nausea or vomiting. His echocardiogram showed an ejection fraction of 50-55% Medications: Aspirin, Lipitor 40 mg daily, metoprolol succinate 50 mg twice a day, tamsulosin in addition to vancomycin. Patient was on IV heparin preprocedure. PHYSICAL EXAMINATION: Blood pressure 112/70 heart rate 70 LUNGS: Clear to auscultation HEART: Irregular rate and rhythm, S1, S2. No S3. Systolic ejection murmur ABDOMEN: Soft, nontender, no organomegaly EXTREMETIES: Dressing on left elbow, status post left AKA LAB: Hemoglobin 9.7, BUN 16, creatinine 0.75 IMPRESSION: 1. Sepsis with abscess of the left elbow status post incision and drainage 2. Atrial fibrillation, rate controlled 3. History of PAD 4. Chronic tobacco use PLAN: 1. Start oral anticoagulation tomorrow 2. Follow renal functions 3. Depending on his progress further recommendations will be made 4. Continue antibiotics per primary care physician Objective - Vital Signs Vital signs: Vital Signs Temp 98.2 F 04/17/23 08:00 Pulse 79 04/17/23 11:30 Resp 17 04/17/23 11:30 BP 112/71 04/17/23 11:30 Pulse Ox 97 04/17/23 11:30 FiO2 Intake & Output 04/16/23 04/17/23 04/17/23 18:59 06:59 18:59 Intake Total 970 202.408 500 Output Total 900 1250 380 Balance 70 -1047.592 120 Weight 90.718 kg Intake: IV 500 Intake, IV Titration 250 202.408 Amount Heparin Sod,Pork in 0.45% 250 202.408 NaCl 25,000 unit In 0.45 % NaCl 1 250ml.bag @ 11. 023 UNITS/KG/HR 10 mls/hr IV .Q24H [facility] Rx#: [id number] Oral 720 Output: Urine 900 1250 375 Estimated Blood Loss 5 Other: Voiding Method Indwelling Catheter Indwelling Catheter Indwelling Catheter - Labs CBC & Chem 7: 04/17/23 07:30 04/17/23 07:30 Labs: Abnormal Lab Results - Last 24 Hours (Table) 04/16/23 04/16/23 04/16/23 Range/Units 16:42 17:16 20:11 WBC (3.8-10.6) k/uL RBC (4.30-5.90) m/uL Hgb (13.0-17.5) gm/dL Hct (39.0-53.0) % APTT 40.8 H (22.0-30.0) sec Sodium (137-145) mmol/L Potassium (3.5-5.1) mmol/L Glucose (74-99) mg/dL POC Glucose (mg/dL) 204 H 262 H (70-110) mg/dL Calcium (8.4-10.2) mg/dL Alkaline Phosphatase (38-126) U/L Total Protein (6.3-8.2) g/dL Albumin (3.5-5.0) g/dL 04/17/23 04/17/23 04/17/23 Range/Units 00:04 06:18 07:30 WBC 11.3 H (3.8-10.6) k/uL RBC 3.35 L (4.30-5.90) m/uL Hgb 9.7 L (13.0-17.5) gm/dL Hct 28.9 L (39.0-53.0) % APTT 49.6 H (22.0-30.0) sec Sodium (137-145) mmol/L Potassium (3.5-5.1) mmol/L Glucose (74-99) mg/dL POC Glucose (mg/dL) 124 H (70-110) mg/dL Calcium (8.4-10.2) mg/dL Alkaline Phosphatase (38-126) U/L Total Protein (6.3-8.2) g/dL Albumin (3.5-5.0) g/dL 04/17/23 04/17/23 04/17/23 Range/Units 07:30 07:30 11:37 WBC (3.8-10.6) k/uL RBC (4.30-5.90) m/uL Hgb (13.0-17.5) gm/dL Hct (39.0-53.0) % APTT 34.9 H (22.0-30.0) sec Sodium 135 L (137-145) mmol/L Potassium 3.3 L (3.5-5.1) mmol/L Glucose 119 H (74-99) mg/dL POC Glucose (mg/dL) 138 H (70-110) mg/dL Calcium 8.1 L (8.4-10.2) mg/dL Alkaline Phosphatase 160 H (38-126) U/L Total Protein 4.8 L (6.3-8.2) g/dL Albumin 2.3 L (3.5-5.0) g/dL Microbiology - Last 24 Hours (Table) 04/14/23 16:54 Gram Stain - Preliminary Elbow - Left Wound Culture - Preliminary Staphylococcus aureus 04/14/23 11:50 Blood Culture - Preliminary Blood 04/14/23 11:35 Blood Culture - Preliminary Blood
--- NOTE | 2023-04-17 13:45 | P.PN ---
Subjective Progress Note Date: 04/17/23 Principal diagnosis: patient is 62-year-old gentleman with past medical history significant for diabetes mellitus, hypertension who presented to the ER because of left forearm swelling which has been going on for last week. Patient stated he was all right one week back he noticed that there was red area over his left elbow looked like insect bite, initially it was slightly red but it gradually progressed. Patient was seen in urgent care 4-5 days ago at which time he was diagnosed with left forearm cellulitis and was discharged on oral antibiotics. Patient was unable to tolerate these medication he was having nausea and vomiting. Patient also spiking fevers at home. Patient stated that the pain in left forearm was worsening. Patient went to the [facility] on Wednesday, they're planning to admit him with IV antibiotics but since there was no bed available and he was in the ER for long time, patient left AGAINST MEDICAL ADVICE. Patient continued to feel worse, mostly lethargy and weakness. Denied any chest pain or shortness of breath. Denies any swelling of any feet. Because of left forearm swelling he came to the ER Initial lab work done in the ER showed WBC 26, hemoglobin 13.8, platelet 1317, INR 1, sodium 133, potassium 3.7, BUN 27, creatinine 1.66, lactate 3.6 Urine drug screen positive for benzodiazepine In the ER, patient was found to be in A. fib with RVR, started on IV Cardizem drip Patient was admitted to medicine service 04/15. Patient seen and examined. Continues to be in A. fib. States left forearm pain is improved 04/16. Patient seen and examined. Potassium this morning is 3.2, replacement ordered. Still in A. fib. Still having pain in left elbow 04/17. Patient seen and examined. Sodium 135, potassium 3.3, BUNs 16, creatinine 0.75. Currently nothing by mouth, going for I&D by orthopedic REVIEW OF SYSTEMS: CONSTITUTIONAL: No fever, no malaise,. CARDIOVASCULAR: No chest pain, no palpitations, no syncope. PULMONARY: No shortness of breath, no cough, GASTROINTESTINAL: No diarrhea, no nausea, no vomiting, no abdominal pain. NEUROLOGICAL: No headaches, no weakness, PHYSICAL EXAMINATION: GENERAL: The patient is alert and oriented x3, not in any acute distress. Well developed, well nourished. HEENT: Pupils are round and equally reacting to light. EOMI. No scleral icterus. No conjunctival pallor. Normocephalic, atraumatic. No pharyngeal erythema. No thyromegaly. CARDIOVASCULAR: S1 and S2 present. No murmurs, rubs, or gallops. PULMONARY: Chest is clear to auscultation, no wheezing or crackles. ABDOMEN: Soft, nontender, nondistended, normoactive bowel sounds. No palpable organomegaly. MUSCULOSKELETAL: Left elbow swollen, erythema noticeable, EXTREMITIES: No cyanosis, clubbing, or pedal edema. Left AKA NEUROLOGICAL: Gross neurological examination did not reveal any focal deficits. SKIN: No rashes. Assessment and plan A. fib and RVR Left forearm cellulitis with abscess Sepsis Elevated troponin Acute kidney injury Lactic acidosis Hyperglycemia Monitor vital signs Monitor CBC Monitor CMP Continue telemetry monitoring Follow-up on blood cultures Continue Lopressor 50 mg twice a day Continue heparin pharmacy dose Continue vancomycin IV dose Monitor blood sugar levels, Lantus 7 units twice a day, continue sliding scale insulin Orthopedic evaluated the patient, planning I and D for today Cardiology following ID following Labs and medication were reviewed.. Continue same treatment. Continue with symptomatic treatment. Resume home medication. Monitor labs and vitals. DVT and GI prophylaxis. Further recommendations as per clinical course of the patient Dictation was produced using [employer] dictation software. please excuse any grammatical, word or spelling errors. Objective - Vital Signs Vital signs: Vital Signs Temp 98.2 F 04/17/23 08:00 Pulse 82 04/17/23 08:00 Resp 18 04/17/23 08:00 BP 113/74 04/17/23 08:00 Pulse Ox 94 L 04/17/23 08:00 FiO2 Intake & Output 04/16/23 04/17/23 04/17/23 18:59 06:59 18:59 Intake Total 970 202.408 400 Output Total 900 1250 375 Balance 70 -1047.592 25 Weight 90.718 kg Intake: IV 400 Intake, IV Titration 250 202.408 Amount Heparin Sod,Pork in 0.45% 250 202.408 NaCl 25,000 unit In 0.45 % NaCl 1 250ml.bag @ 11. 023 UNITS/KG/HR 10 mls/hr IV .Q24H [facility] Rx#: [id number] Oral 720 Output: Urine 900 1250 375 Other: Voiding Method Indwelling Catheter Indwelling Catheter Indwelling Catheter - Labs CBC & Chem 7: 04/17/23 07:30 04/17/23 07:30 Labs: Abnormal Lab Results - Last 24 Hours (Table) 04/16/23 04/16/23 04/16/23 Range/Units 10:26 10:26 11:40 WBC 16.4 H (3.8-10.6) k/uL RBC 3.50 L (4.30-5.90) m/uL Hgb 10.1 L (13.0-17.5) gm/dL Hct 29.8 L (39.0-53.0) % APTT 37.1 H (22.0-30.0) sec Sodium (137-145) mmol/L Potassium (3.5-5.1) mmol/L Glucose (74-99) mg/dL POC Glucose (mg/dL) 230 H (70-110) mg/dL Calcium (8.4-10.2) mg/dL Alkaline Phosphatase (38-126) U/L Total Protein (6.3-8.2) g/dL Albumin (3.5-5.0) g/dL 04/16/23 04/16/23 04/16/23 Range/Units 16:42 17:16 20:11 WBC (3.8-10.6) k/uL RBC (4.30-5.90) m/uL Hgb (13.0-17.5) gm/dL Hct (39.0-53.0) % APTT 40.8 H (22.0-30.0) sec Sodium (137-145) mmol/L Potassium (3.5-5.1) mmol/L Glucose (74-99) mg/dL POC Glucose (mg/dL) 204 H 262 H (70-110) mg/dL Calcium (8.4-10.2) mg/dL Alkaline Phosphatase (38-126) U/L Total Protein (6.3-8.2) g/dL Albumin (3.5-5.0) g/dL 04/17/23 04/17/23 04/17/23 Range/Units 00:04 06:18 07:30 WBC 11.3 H (3.8-10.6) k/uL RBC 3.35 L (4.30-5.90) m/uL Hgb 9.7 L (13.0-17.5) gm/dL Hct 28.9 L (39.0-53.0) % APTT 49.6 H (22.0-30.0) sec Sodium (137-145) mmol/L Potassium (3.5-5.1) mmol/L Glucose (74-99) mg/dL POC Glucose (mg/dL) 124 H (70-110) mg/dL Calcium (8.4-10.2) mg/dL Alkaline Phosphatase (38-126) U/L Total Protein (6.3-8.2) g/dL Albumin (3.5-5.0) g/dL 04/17/23 04/17/23 Range/Units 07:30 07:30 WBC (3.8-10.6) k/uL RBC (4.30-5.90) m/uL Hgb (13.0-17.5) gm/dL Hct (39.0-53.0) % APTT 34.9 H (22.0-30.0) sec Sodium 135 L (137-145) mmol/L Potassium 3.3 L (3.5-5.1) mmol/L Glucose 119 H (74-99) mg/dL POC Glucose (mg/dL) (70-110) mg/dL Calcium 8.1 L (8.4-10.2) mg/dL Alkaline Phosphatase 160 H (38-126) U/L Total Protein 4.8 L (6.3-8.2) g/dL Albumin 2.3 L (3.5-5.0) g/dL Microbiology - Last 24 Hours (Table) 04/14/23 16:54 Gram Stain - Preliminary Elbow - Left Wound Culture - Preliminary Staphylococcus aureus 04/14/23 11:50 Blood Culture - Preliminary Blood 04/14/23 11:35 Blood Culture - Preliminary Blood
[2023-04-17] MEDS: DILTIAZEM 125 MG in SODIUM CHLORIDE 0.9% 100 ML IV SCH (15:38)
[2023-04-17] MEDS: HEPARIN SODIUM 1,000 UN/ML (10ML VL) IV PRN (15:55)
[2023-04-17 16:18] LABS: Glucose,Whole Blood 167 mg/dL (70-110)
[2023-04-17 16:33] VITALS: RESP 18
[2023-04-17 19:37] LABS: Glucose,Whole Blood 207 mg/dL (70-110)
[2023-04-17] MEDS: TAMSULOSIN 0.4 MG CAP.ER.24H PO SCH (20:11)
[2023-04-18] MEDS: SODIUM CHLORIDE 0.9% 1,000 ML IV SCH (04:57)
[2023-04-18] MEDS: VANCOMYCIN 1,500 MG in SODIUM CHLORIDE 0.9% 500 ML 500 ML IVPB SCH (05:59)
[2023-04-18 06:01] LABS: Glucose,Whole Blood 130 mg/dL (70-110)
[2023-04-18 06:06] VITALS: BP 146/70; PULSE 98; TEMP 98.1
[2023-04-18] MEDS: INSULIN ASPART (NovoLOG) 100 UNIT/ML VIAL SQ SCH (06:18)
[2023-04-18] MEDS: INSULIN DETEMIR (LEVEMIR) 100 UNIT/ML SYR SQ SCH (06:19)
--- NOTE | 2023-04-21 09:33 | P.DS ---
Providers Date of admission: 04/14/23 13:08 Expected date of discharge: 04/18/23 Attending physician: Broderick Bernal Consults: 04/14/23 14:04 Consult Physician Routine Consulting Provider: Giulia Lion Consult Reason/Comments: Left Forearm cellulitis Do you want consulting provider notified?: Yes 04/14/23 14:05 Consult Physician Routine Consulting Provider: Chris Morocho Consult Reason/Comments: A. fib with RVR Do you want consulting provider notified?: Yes 04/15/23 09:35 Consult Physician Routine Consulting Provider: Martin Ambriz Consult Reason/Comments: Left elbow abscess, possible olecranon [employer] Do you want consulting provider notified?: Yes Primary care physician: Kendell Mane Hospital Course: Discharge diagnoses; A. fib and RVR Left forearm cellulitis with abscess Sepsis Elevated troponin Acute kidney injury Lactic acidosis Hyperglycemia Hospital course; patient is 62-year-old gentleman with past medical history significant for diab etes mellitus, hypertension who presented to the ER because of left forearm swelling which has been going on for last week. Patient stated he was all right one week back he noticed that there was red area over his left elbow looked like insect bite, initially it was slightly red but it gradually progressed. Patient was seen in urgent care 4-5 days ago at which time he was diagnosed with left forearm cellulitis and was discharged on oral antibiotics. Patient was unable to tolerate these medication he was having nausea and vomiting. Patient also spiking fevers at home. Patient stated that the pain in left forearm was worsening. Patient went to the [facility] on Wednesday, they're planning to admit him with IV antibiotics but since there was no bed available and he was in the ER for long time, patient left AGAINST MEDICAL ADVICE. Patient continued to feel worse, mostly lethargy and weakness. Denied any chest pain or shortness of breath. Denies any swelling of any feet. Because of left forearm swelling he came to the ER Initial lab work done in the ER showed WBC 26, hemoglobin 13.8, platelet 1317, INR 1, sodium 133, potassium 3.7, BUN 27, creatinine 1.66, lactate 3.6 Urine drug screen positive for benzodiazepine In the ER, patient was found to be in A. fib with RVR, started on IV Cardizem drip Patient was admitted to medicine service 04/15. Patient seen and examined. Continues to be in A. fib. States left forearm pain is improved 04/16. Patient seen and examined. Potassium this morning is 3.2, replacement ordered. Still in A. fib. Still having pain in left elbow 04/17. Patient seen and examined. Sodium 135, potassium 3.3, BUNs 16, creatinine 0.75. Currently nothing by mouth, going for I&D by orthopedic Patient had I and D done by orthopedics. Patient was on IV antibiotics. Cardiology was following. In the morning, patient started stating that he does not want to stay in the hospital any longer, he wanted to leave AGAINST MEDICAL ADVICE. Patient was counseled by nursing staff to stay in the hospital but he refused and left AGAINST MEDICAL ADVICE Dictation was produced using [employer] dictation software. please excuse any grammatical, word or spelling errors. Patient Condition at Discharge: Stable Plan - Discharge Summary Discharge Rx Participant: No New Discharge Prescriptions: No Action Escitalopram [Lexapro] 20 mg PO DAILY Ibuprofen [Motrin] 600 mg PO BID PRN PRN Reason: Pain diazePAM [Valium] 5 mg PO BID PRN PRN Reason: Anxiety Metoprolol Succinate [Toprol XL] 25 mg PO DAILY lisinopriL 20 mg PO DAILY Baclofen [Lioresal] 10 mg PO TID Tamsulosin HCl [Flomax] 0.4 mg PO HS HYDROcodone/APAP 10-325MG [Buchanan 10-325] 1 tab PO QID Famotidine [Pepcid] 20 mg PO BID PRN PRN Reason: GERD Insulin NPL/Insulin Lispro [humaLOG MIX 75-25 VIAL] 40 units SQ BID buPROPion SR [Wellbutrin SR] 100 mg PO DAILY Discharge Medication List Escitalopram [Lexapro] 20 mg PO DAILY 06/15/16 [History] Ibuprofen [Motrin] 600 mg PO BID PRN 06/15/16 [History] diazePAM [Valium] 5 mg PO BID PRN 06/15/16 [History] Baclofen [Lioresal] 10 mg PO TID 12/18/19 [History] HYDROcodone/APAP 10-325MG [Buchanan 10-325] 1 tab PO QID 12/18/19 [History] Metoprolol Succinate [Toprol XL] 25 mg PO DAILY 05/04/20 [History] Tamsulosin HCl [Flomax] 0.4 mg PO HS 12/18/19 [History] lisinopriL 20 mg PO DAILY 12/18/19 [History] Famotidine [Pepcid] 20 mg PO BID PRN 01/06/23 [History] buPROPion SR [Wellbutrin SR] 100 mg PO DAILY 01/06/23 [History] Insulin NPL/Insulin Lispro [humaLOG MIX 75-25 VIAL] 40 units SQ BID 04/14/23 [History] Follow up Appointment(s)/Referral(s): Kendell Mane [Primary Care Provider] - 1-2 days Discharge Disposition: LEFT AGAINST MEDICAL ADVICE
--- NOTE | 2023-04-23 15:12 | P.PN ---
Subjective Progress Note Date: 04/16/23 Principal diagnosis: Left forearm abscess and cellulitis Patient is a 62-year-old male with a past medical history negative for diabetes mellitus hypertension hyperlipidemia previous history of MRSA infection of the left ankle area presenting to the hospital for evaluation of pain and swelling to the left forearm with evidence of abscess. On today's evaluation that is 04/16/2023, the patient denies having any fever or any chills, the patient is breathing comfortably, the patient denies having any chest pain, no nausea no vomiting no abdominal pain and no diarrhea has been reported. Patient still complained of pain to the left upper extremity some improvement pain medication The patient white count of 16.4, creatinine is 0.75 blood cultures and local cultures currently pending Objective - Vital Signs Vital signs: Vital Signs Temp 98.7 F 04/16/23 08:15 Pulse 123 H 04/16/23 08:15 Resp 18 04/16/23 08:15 BP 131/74 04/16/23 08:15 Pulse Ox 90 L 04/16/23 08:15 FiO2 Intake & Output 04/15/23 04/16/23 04/16/23 18:59 06:59 18:59 Intake Total 2722.335 190.975 Output Total 350 300 Balance 2372.335 -109.025 Intake: Intake, IV Titration 1742.335 190.975 Amount Heparin Sod,Pork in 0.45% 242.335 190.975 NaCl 25,000 unit In 0.45 % NaCl 1 250ml.bag @ 11. 023 UNITS/KG/HR 10 mls/hr IV .Q24H [facility] Rx#: [id number] Sodium Chloride 0.9% 1, 500 000 ml @ 130 mls/hr IV . Q7H42M [facility] Rx#:[id number] Sodium Chloride 0.9% 500 500 ml 500 ml @ 999 mls/hr IV .Q31M [facility] Rx#:[id number] Vancomycin 1,500 mg In 500 Sodium Chloride 0.9% 500 ml 500 ml @ 167 mls/hr IVPB Q12H [facility] Rx#: [id number] Oral 980 Output: Urine 350 300 Other: Voiding Method Indwelling Catheter Indwelling Catheter Indwelling Catheter - Exam GENERAL DESCRIPTION: Middle-age male lying in bed in no distress RESPIRATORY SYSTEM: Unlabored breathing , decreased breath sounds at bases HEART: S1 S2 regular rate and rhythm , ABDOMEN: Soft , no tenderness EXTREMITIES: Left upper extremity swelling and redness minimal drainage - Labs CBC & Chem 7: 04/17/23 07:30 04/17/23 07:30 Labs: Abnormal Lab Results - Last 24 Hours (Table) 04/15/23 04/15/23 04/15/23 Range/Units 07:50 07:50 07:50 WBC (3.8-10.6) k/uL RBC (4.30-5.90) m/uL Hgb (13.0-17.5) gm/dL Hct (39.0-53.0) % APTT (22.0-30.0) sec Sodium 132 L (137-145) mmol/L Potassium 2.9 L (3.5-5.1) mmol/L Chloride 97 L (98-107) mmol/L Carbon Dioxide 21 L (22-30) mmol/L BUN 34 H (9-20) mg/dL Glucose 297 H (74-99) mg/dL POC Glucose (mg/dL) (70-110) mg/dL Hemoglobin A1c 10.0 H (<=6.0) % Calcium 8.2 L (8.4-10.2) mg/dL Alkaline Phosphatase (38-126) U/L Total Protein (6.3-8.2) g/dL Albumin (3.5-5.0) g/dL Triglycerides 241.00 H (0.00-149.00) mg/dL VLDL Cholesterol, Calc 48.20 H (5.00-40.00) mg/dL HDL Cholesterol 16.70 L (40.00-60.00) mg/dL TSH 0.242 L (0.465-4.680) mIU/L 04/15/23 04/15/23 04/15/23 Range/Units 11:29 16:18 20:02 WBC (3.8-10.6) k/uL RBC (4.30-5.90) m/uL Hgb (13.0-17.5) gm/dL Hct (39.0-53.0) % APTT (22.0-30.0) sec Sodium (137-145) mmol/L Potassium (3.5-5.1) mmol/L Chloride (98-107) mmol/L Carbon Dioxide (22-30) mmol/L BUN (9-20) mg/dL Glucose (74-99) mg/dL POC Glucose (mg/dL) 372 H 365 H 309 H (70-110) mg/dL Hemoglobin A1c (<=6.0) % Calcium (8.4-10.2) mg/dL Alkaline Phosphatase (38-126) U/L Total Protein (6.3-8.2) g/dL Albumin (3.5-5.0) g/dL Triglycerides (0.00-149.00) mg/dL VLDL Cholesterol, Calc (5.00-40.00) mg/dL HDL Cholesterol (40.00-60.00) mg/dL TSH (0.465-4.680) mIU/L 04/16/23 04/16/23 04/16/23 Range/Units 04:38 04:38 04:38 WBC 17.0 H (3.8-10.6) k/uL RBC 3.35 L (4.30-5.90) m/uL Hgb 10.0 L (13.0-17.5) gm/dL Hct 29.1 L (39.0-53.0) % APTT 31.2 H (22.0-30.0) sec Sodium 129 L (137-145) mmol/L Potassium 3.2 L (3.5-5.1) mmol/L Chloride 97 L (98-107) mmol/L Carbon Dioxide (22-30) mmol/L BUN 21 H (9-20) mg/dL Glucose 207 H (74-99) mg/dL POC Glucose (mg/dL) (70-110) mg/dL Hemoglobin A1c (<=6.0) % Calcium 8.3 L (8.4-10.2) mg/dL Alkaline Phosphatase 194 H (38-126) U/L Total Protein 5.2 L (6.3-8.2) g/dL Albumin 2.6 L (3.5-5.0) g/dL Triglycerides (0.00-149.00) mg/dL VLDL Cholesterol, Calc (5.00-40.00) mg/dL HDL Cholesterol (40.00-60.00) mg/dL TSH (0.465-4.680) mIU/L 04/16/23 04/16/23 04/16/23 Range/Units 06:05 10:26 10:26 WBC 16.4 H (3.8-10.6) k/uL RBC 3.50 L (4.30-5.90) m/uL Hgb 10.1 L (13.0-17.5) gm/dL Hct 29.8 L (39.0-53.0) % APTT 37.1 H (22.0-30.0) sec Sodium (137-145) mmol/L Potassium (3.5-5.1) mmol/L Chloride (98-107) mmol/L Carbon Dioxide (22-30) mmol/L BUN (9-20) mg/dL Glucose (74-99) mg/dL POC Glucose (mg/dL) 234 H (70-110) mg/dL Hemoglobin A1c (<=6.0) % Calcium (8.4-10.2) mg/dL Alkaline Phosphatase (38-126) U/L Total Protein (6.3-8.2) g/dL Albumin (3.5-5.0) g/dL Triglycerides (0.00-149.00) mg/dL VLDL Cholesterol, Calc (5.00-40.00) mg/dL HDL Cholesterol (40.00-60.00) mg/dL TSH (0.465-4.680) mIU/L Microbiology - Last 24 Hours (Table) 04/14/23 16:54 Gram Stain - Preliminary Elbow - Left Wound Culture - Preliminary Presumptive Staph aureus 04/14/23 11:50 Blood Culture - Preliminary Blood 04/14/23 11:35 Blood Culture - Preliminary Blood Assessment and Plan (1) Abscess of left arm Status: Acute Code(s): L02.414 - CUTANEOUS ABSCESS OF LEFT UPPER LIMB SNOMED Code(s): 34056258823325241 Plan: 1patient with left forearm dorsal area abscess and cellulitis did have evidence of purulent drainage that was cultured likely from gram-positive skin ana such as strep and Staphylococcus aureus failing outpatient oral antibiotic therapy. 2patient with a cephalexin allergy that will limit the number of antibiotics safe to use. 3mild renal insufficiency high risk of nephrotoxicity. 4patient has been evaluated by Ortho and patient scheduled for drainage of this abscess tomorrow 5-patient to continue the vancomycin while waiting for the culture finalized and monitor clinical course closely Dictation was produced using [employer] dictation software. please excuse any grammatical, word or spelling errors. Time with Patient: Less than 30
--- NOTE | 2023-04-23 15:15 | P.PN ---
Subjective Progress Note Date: 04/17/23 Principal diagnosis: Left forearm abscess and cellulitis Patient is a 62-year-old male with a past medical history negative for diabetes mellitus hypertension hyperlipidemia previous history of MRSA infection of the left ankle area presenting to the hospital for evaluation of pain and swelling to the left forearm with evidence of abscess. Patient is status post drainage of the left forearm abscesses by orthopedics this morning On today's evaluation that is 04/17/2023, the patient remains to be afebrile, the patient is breathing comfortably, the patient denies having any chest pain, no nausea no vomiting no abdominal pain and no diarrhea has been reported. Patient pain to the left upper extremity has slightly decreased in intensity The patient white count is down to 11.3, creatinine is 0.75 blood cultures and local cultures currently pending Objective - Vital Signs Vital signs: Vital Signs Temp 98.2 F 04/17/23 08:00 Pulse 80 04/17/23 11:14 Resp 18 04/17/23 11:14 BP 133/67 04/17/23 11:14 Pulse Ox 100 04/17/23 11:14 FiO2 Intake & Output 04/16/23 04/17/23 04/17/23 18:59 06:59 18:59 Intake Total 970 202.408 500 Output Total 900 1250 380 Balance 70 -1047.592 120 Weight 90.718 kg Intake: IV 500 Intake, IV Titration 250 202.408 Amount Heparin Sod,Pork in 0.45% 250 202.408 NaCl 25,000 unit In 0.45 % NaCl 1 250ml.bag @ 11. 023 UNITS/KG/HR 10 mls/hr IV .Q24H [facility] Rx#: [id number] Oral 720 Output: Urine 900 1250 375 Estimated Blood Loss 5 Other: Voiding Method Indwelling Catheter Indwelling Catheter Indwelling Catheter - Exam GENERAL DESCRIPTION: Middle-age male lying in bed in no distress RESPIRATORY SYSTEM: Unlabored breathing , decreased breath sounds at bases HEART: S1 S2 regular rate and rhythm , ABDOMEN: Soft , no tenderness EXTREMITIES: Left upper extremity is currently dressed in OR dressing, no drainage on the dressing - Labs CBC & Chem 7: 04/17/23 07:30 04/17/23 07:30 Labs: Abnormal Lab Results - Last 24 Hours (Table) 04/16/23 04/16/23 04/16/23 Range/Units 16:42 17:16 20:11 WBC (3.8-10.6) k/uL RBC (4.30-5.90) m/uL Hgb (13.0-17.5) gm/dL Hct (39.0-53.0) % APTT 40.8 H (22.0-30.0) sec Sodium (137-145) mmol/L Potassium (3.5-5.1) mmol/L Glucose (74-99) mg/dL POC Glucose (mg/dL) 204 H 262 H (70-110) mg/dL Calcium (8.4-10.2) mg/dL Alkaline Phosphatase (38-126) U/L Total Protein (6.3-8.2) g/dL Albumin (3.5-5.0) g/dL 04/17/23 04/17/23 04/17/23 Range/Units 00:04 06:18 07:30 WBC 11.3 H (3.8-10.6) k/uL RBC 3.35 L (4.30-5.90) m/uL Hgb 9.7 L (13.0-17.5) gm/dL Hct 28.9 L (39.0-53.0) % APTT 49.6 H (22.0-30.0) sec Sodium (137-145) mmol/L Potassium (3.5-5.1) mmol/L Glucose (74-99) mg/dL POC Glucose (mg/dL) 124 H (70-110) mg/dL Calcium (8.4-10.2) mg/dL Alkaline Phosphatase (38-126) U/L Total Protein (6.3-8.2) g/dL Albumin (3.5-5.0) g/dL 04/17/23 04/17/23 04/17/23 Range/Units 07:30 07:30 11:37 WBC (3.8-10.6) k/uL RBC (4.30-5.90) m/uL Hgb (13.0-17.5) gm/dL Hct (39.0-53.0) % APTT 34.9 H (22.0-30.0) sec Sodium 135 L (137-145) mmol/L Potassium 3.3 L (3.5-5.1) mmol/L Glucose 119 H (74-99) mg/dL POC Glucose (mg/dL) 138 H (70-110) mg/dL Calcium 8.1 L (8.4-10.2) mg/dL Alkaline Phosphatase 160 H (38-126) U/L Total Protein 4.8 L (6.3-8.2) g/dL Albumin 2.3 L (3.5-5.0) g/dL Microbiology - Last 24 Hours (Table) 04/14/23 16:54 Gram Stain - Preliminary Elbow - Left Wound Culture - Preliminary Staphylococcus aureus 04/14/23 11:50 Blood Culture - Preliminary Blood 04/14/23 11:35 Blood Culture - Preliminary Blood Assessment and Plan (1) Abscess of left arm Status: Acute Code(s): L02.414 - CUTANEOUS ABSCESS OF LEFT UPPER LIMB SNOMED Code(s): 87191574692566261 Plan: 1patient with left forearm dorsal area abscess and cellulitis did have evidence of purulent drainage that was cultured likely from gram-positive skin ana such as strep and Staphylococcus aureus failing outpatient oral antibiotic therapy. 2patient with a cephalexin allergy that will limit the number of antibiotics safe to use. 3patient is status post drainage of the abscess cultures are currently pending 5-patient to continue the vancomycin while waiting for the culture finalized , patient will likely need a PICC line for outpatient IV antibiotics Dictation was produced using [employer] dictation software. please excuse any grammatical, word or spelling errors. Time with Patient: Less than 30
== END 2023-04-18 06:46 | disposition left against medical advice (07) | DRG 710 ==
LOC: EC 10:43 → 3SCARD 13:08
PROVIDERS: ADMIT Hospitalist; ATTEND Hospitalist
PROC: 0KBB0ZZ Excision of Left Lower Arm and Wrist Muscle, Open Approach (ICD-10-PCS; principal; 2023-04-17 08:30)
DX: A41.9 Sepsis, unspecified organism (principal); E11.10 Type 2 diabetes mellitus with ketoacidosis without coma; E11.51 Type 2 diabetes mellitus with diabetic peripheral angiopathy without gangrene; E78.5 Hyperlipidemia, unspecified; A08.4 Viral intestinal infection, unspecified; F17.210 Nicotine dependence, cigarettes, uncomplicated; G82.20 Paraplegia, unspecified; E86.0 Dehydration; R77.8 Other specified abnormalities of plasma proteins; I10 Essential (primary) hypertension; I48.0 Paroxysmal atrial fibrillation; I48.92 Unspecified atrial flutter; L02.414 Cutaneous abscess of left upper limb; L03.114 Cellulitis of left upper limb; M60.032 Infective myositis, left forearm; F32.A Depression, unspecified; N17.9 Acute kidney failure, unspecified; Z28.311 Partially vaccinated for COVID-19; Z28.21 Immunization not carried out because of patient refusal; Z79.4 Long term (current) use of insulin; Z79.899 Other long term (current) drug therapy; Z89.612 Acquired absence of left leg above knee; N28.9 Disorder of kidney and ureter, unspecified; Z88.1 Allergy status to other antibiotic agents; Z88.5 Allergy status to narcotic agent; Z86.14 Personal history of Methicillin resistant Staphylococcus aureus infection; Z71.89 Other specified counseling
CPT/HCPCS: 36415; 51702; 80048; 80053; 80061; 80202; 80306; 81001; 82009; 82150; 83036; 83605; 83690; 84439; 84443; 84484; 85025; 85027; 85610; 85730; 87040; 87070; 87075; 87077; 87186; 87205; 93306; 96361; 96365; 96366; 96368; 96375; 99291

== ENCOUNTER → 2024-12-28 | Outpatient (CLI) | payer OTHER ==
[2024-12-28 14:09] LABS: African American GFR (CKD) 68 (>60 ml/min/1.73 sqM); Blood Urea Nitrogen 19 mg/dL (9-20); Non-African American GFR(CKD) 59 (>60 ml/min/1.73 sqM)
--- NOTE | 2024-12-28 16:08 | CT ---
CTA abdomen, pelvis and lower extremities. HISTORY: Severe numbness of the lower extremities. COMPARISON: None. TECHNIQUE: Multiple axial images are obtained through the abdomen, pelvis and lower extremities follo wing IV contrast administration. The exam was performed according to department CTA protocol. MIPS im ages were generated and reviewed. 3-D post processing was performed. FINDINGS: Inflow CTA: There is moderate calcification of the abdominal aorta without evidence of aneurysm or stenosis. Ther e is moderate scattered mural thrombus. The right common external iliac arteries are patent without s ignificant stenosis. The left common iliac artery is widely patent without stenosis but there is a severe focal stenosis i n the left external iliac artery. Outflow CT: On the right, there is a severe focal stenosis of the right common femoral artery. The right profunda femoral artery is patent. There is occlusion of the right superficial femoral artery. There is recon stitution of the popliteal artery via collaterals. There are no significant right popliteal artery st enoses. On the left: The left common femoral artery and profunda femoral artery are patent. There is occlusion of the left superficial femoral artery and there is [id number] amputation Runoff CTA: There is three-vessel runoff on the right. Nonvascular findings: The gallbladder is contracted but there is no biliary ductal dilatation or gallstone. There is no organomegaly involving the solid visceral organs of the upper abdomen. There is marked bilateral hydronephrosis. There is marked thickening of the urinary bladder wall and there is moderate to marked prostatic hypertrophy. There is a TURP defect. There is a 3.4 cm hypodens e mass/fluid collection in the right perineal region which could represent an abscess or cyst. Bowel loops are normal in caliber and there is no evidence of obstruction. No free intraperitoneal ai r or fluid. There is a laminectomy in the lower lumbar spine. 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 IMPRESSION: 1. No significant inflow disease on the right and and and moderate inflow stenosis on the left second clarita to a severe focal stenosis of the left external iliac artery. 2. 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 3. 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 4. Three-vessel runoff on the right 5. marked bilateral hydronephrosis, thickened gallbladder wall consistent with chronic bladder outlet obstruction. 6. Marked prostatic hypertrophy with TURP defect. 7. 3.4 cm hypodense mass/fluid collection or abscess in the right perineal region. Clinical correlati on recommended. [facility], , 12/28/2024 4:06 PM
== END | disposition home or self-care (01) ==
LOC: RADCTMAIN 13:04
PROVIDERS: ATTEND Surgery
DX: I70.213 Atherosclerosis of native arteries of extremities with intermittent claudication, bilateral legs (principal); I70.201 Unspecified atherosclerosis of native arteries of extremities, right leg; N13.30 Unspecified hydronephrosis; N40.0 Benign prostatic hyperplasia without lower urinary tract symptoms; Z89.612 Acquired absence of left leg above knee
CPT/HCPCS: 82565; 84520; 75635; 36415; Q9967